=== PATIENT | male | born 1990 | race African-American/Black ===

== ENCOUNTER 2017-09-10 16:58 | Emergency (ER) | payer SELFPAY ==
[2017-09-10] MEDS ORDERED: NA CHLORIDE 0.9% 1,000 ML ONE ×2 (17:27→19:29)
[2017-09-10] MEDS ORDERED: ONDANSETRON 4 MG/2 ML VIAL ONE (17:27)
--- NOTE | 2017-09-10 17:45 | RAD REPORT ---
EXAM DESCRIPTION: CT - Head Brain Wo Cont - 09/10/2017 5:29 pm CLINICAL HISTORY: Blurred vision, transient alteration of awareness, drowsiness COMPARISON: CT March 2012 TECHNIQUE: Axial 5 mm thick images of the head were obtained without IV contrast. All CT scans are performed using dose optimization technique as appropriate and may include automated exposure control or mA/KV adjustment according to patient size. FINDINGS: No intracranial hemorrhage, mass, edema or shift of mid-line structures. No acute infarcti on changes seen. No abnormal extra-axial fluid collections. Ventricles are normal. Mastoid air cells and visualized portions of the paranasal sinuses are clear. No acute bony findings. Prominent adenoid tissue present similar to comparison. IMPRESSION: Negative CT head examination for acute or significant finding. No significant change fr om comparison.
[2017-09-10 18:00] LABS: Absolute Lymphocytes (CBC) 1.7 K/uL (0.7-4.9); Absolute Monocytes 0.6 K/uL (0.1-1.3); Absolute Neutrophil 5.9 K/uL (1.8-8.0); Basophils % 0.4 % (0-1.3); Eosinophils % 1.6 % (0-4.4); Hematocrit 43.7 % (39.6-49.0); Lymphocytes % 19.9 % (15.3-44.8); MCH 28.6 pg (27.0-35.0); MCV 82.6 fL (80-100); MPV 9.8 fL (7.6-11.3); Monocytes % 7.2 % (3.3-12.3)
[2017-09-10 19:12] LABS: ALT/SGPT 35 U/L (12-78); AST/SGOT 41 U/L (15-37); Albumin 4.2 g/dL (3.4-5.0); Alkaline Phosphatase 63 U/L (45-117); BUN Blood Urea Nitrogen 9 mg/dL (7-18); Bicarbonate 27 mmol/L (21-32); Bilirubin Direct 0.2 mg/dL (0-0.2); Bilirubin Total 0.7 mg/dL (0.2-1.0); Glucose Level 95 mg/dL (74-106); Potassium 3.8 mmol/L (3.5-5.1); Sodium Level 143 mmol/L (136-145)
[2017-09-10 19:14] LABS: Creatine Phosphokinase 1101 U/L (39-308)
[2017-09-10 20:06] LABS: Urine Blood NEGATIVE (NEG); Urine Glucose NEGATIVE (NEG); Urine Protein NEGATIVE (NEG); Urine pH 7.5 (5.0-7.0)
--- NOTE | 2017-09-10 21:44 | ER ---
Nurse's Notes [facility] Name: Jem Garnica Age: 27 yrs Sex: Male : 1990 Arrival Date: 09/10/2017 Time: 17:00 Bed 17 Private MD: Diagnosis: Dehydration;Rhabdomyolysis Presentation: 09/10 17:04 Presenting complaint: Patient states: I work outside, today I think i just got too hot. sg Keyanna been voimting, and nauseate with blurred vision. My vision has gotten a little better but I think i just got over heated. Usually i can see my veins when i flex, and right now i cant see them. Transition of care: patient was not received from another setting of care. Onset of symptoms was September 10, 2017. Risk Assessment: Do you want to hurt yourself or someone else? Patient reports no desire to harm self or others. Initial Sepsis Screen: Does the patient meet any 2 criteria? No. Patient's initial sepsis screen is negative. Does the patient have a suspected source of infection? No. Patient's initial sepsis screen is negative. Care prior to arrival: None. 17:04 Method Of Arrival: Ambulatory 17:04 Acuity: CHACORTA 3 sg Historical: - Allergies: 17:01 NKDA; sg - Home Meds: 17:01 None [Active]; sg - PMHx: 17:01 Asthma; sg - Immunization history:: Adult Immunizations unknown. - Social history:: Smoking status: Patient uses tobacco products. - Ebola Screening: : Patient negative for fever greater than or equal to 101.5 degrees Fahrenheit, and additional compatible Ebola Virus Disease symptoms Patient denies exposure to infectious person Patient denies travel to an Ebola-affected area in the 21 days before illness onset No symptoms or risks identified at this time. Screenin:45 Abuse screen: Denies threats or abuse. Denies injuries from another. Nutritional jl7 screening: No deficits noted. Tuberculosis screening: No symptoms or risk factors identified. Fall Risk IV access (20 points). Total Jacobs Fall Scale indicates No Risk (0-24 pts). Assessment: 17:45 General: Appears in no apparent distress. uncomfortable, Behavior is calm, cooperative. jl7 Pain: Complains of pain in right upper quadrant and left upper quadrant Pain does not radiate. Pain currently is 5 out of 10 on a pain scale. Quality of pain is described as "Sore from throwing up." Pain began 4 hours ago. Is continuous. Neuro: Level of Consciousness is awake, alert, obeys commands, Oriented to person, place, time, situation. Cardiovascular: Heart tones S1 S2 present Patient's skin is warm and dry. Respiratory: Airway is patent Respiratory effort is even, unlabored, Respiratory pattern is regular, symmetrical, Breath sounds are clear bilaterally. GI: Abdomen is round non-distended, Bowel sounds present X 4 quads. Reports nausea, vomiting, Patient currently denies diarrhea. : No signs and/or symptoms were reported regarding the genitourinary system. EENT: No signs and/or symptoms were reported regarding the EENT system. Derm: Skin is dry, Skin is normal, Skin temperature is warm. Musculoskeletal: No signs and/or symptoms reported regarding the musculoskeletal system. 18:45 Reassessment: Patient and/or family updated on plan of care and expected duration. Pain jl7 level reassessed. Patient is alert, oriented x 3, equal unlabored respirations, skin warm/dry/pink. Patient states symptoms have improved. 19:10 Reassessment: Patient is alert, oriented x 3, equal unlabored respirations, skin rv warm/dry/pink. received patient lying on bed comfortably with adult. awaiting urine sample for examination. no N/V reported as of this time. "I feel better now" as stated by the patient. 20:29 Reassessment: Patient and/or family updated on plan of care and expected duration. Pain rv level reassessed. Patient is alert, oriented x 3, equal unlabored respirations, skin warm/dry/pink. patient is comfortable with stable vital signs. ongoing infusion of NS 1L bolus. Vital Signs: 17:05 BP 116 / 64; Pulse 62; Resp 17; Pulse Ox 98% on R/A; Weight 113.4 kg; Height 5 ft. 11 sg in. (180.34 cm); Pain 0/10; 18:27 BP 112 / 70; Pulse 51; Resp 16; Pulse Ox 99% ; jl7 19:11 BP 97 / 49; Pulse 69; Resp 16; Pulse Ox 96% on R/A; rv 20:28 BP 98 / 57; Pulse 55; Resp 16; Pulse Ox 99% on R/A; rv 17:05 Body Mass Index 34.87 (113.40 kg, 180.34 cm) ED Course: 17:00 Patient arrived in ED. sg 17:00 Arm band placed on. sg 17:05 Triage completed. sg 17:13 Russell Barrett NP is PHCP. pm1 17:13 Lyndon May MD is Attending Physician. pm1 17:22 Sarah Ybarra RN is Primary Nurse. jl7 17:29 CT Head Brain wo Cont In Process Unspecified. EDMS 17:45 Patient has correct armband on for positive identification. Bed in low position. Call jl7 light in reach. Side rails up X 1. Pulse ox on. NIBP on. 17:50 Initial lab(s) drawn, by me, sent to lab. Inserted saline lock: 22 gauge in left hand, jl7 using aseptic technique. Blood collected. 18:26 Lab(s) recollected, by me, sent to lab. jl7 19:08 Report given to NIKITA Santana. jl7 20:44 No provider procedures requiring assistance completed. rv 21:51 IV discontinued, bleeding controlled, No redness/swelling at site. Pressure dressing rv applied. Administered Medications: 17:50 Drug: NS 0.9% 1000 ml Route: IV; Rate: 1000 ml; Site: left hand; jl7 19:39 Follow up: IV Status: Completed infusion rv 17:54 Drug: Zofran 4 mg Route: IVP; Site: left hand; jl7 18:30 Follow up: Response: No adverse reaction; Nausea is decreased jl7 19:39 Drug: NS 0.9% 1000 ml Route: IV; Rate: 1000 ml; Site: left hand; rv 20:36 Follow up: IV Status: Completed infusion rv Outcome: 21:43 Discharge ordered by MD. pm1 21:50 Discharged to home ambulatory. rv 21:50 Condition: improved 21:50 Discharge instructions given to patient, Instructed on discharge instructions, medication usage. 21:52 Patient left the ED. rv Signatures: Dispatcher [employer] EDMS Josef Badillo, RN RN Russell Barrett, KAJAL METALLURGICAL INSPECTOR pm1 Sarah Ybarra, RN RN jl7 Betito Ramírez RN RN rv Corrections: (The following items were deleted from the chart) 18:10 15:45 General: Appears in no apparent distress. uncomfortable, Behavior is calm, jl7 cooperative, 7 : 15:45 Pain: Complains of pain in right upper quadrant and left upper quadrant Pain does jl7 not radiate. Pain currently is 5 out of 10 on a pain scale. Quality of pain is described as "Sore from throwing up." Pain began 4 hours ago. Is continuous, 7 15:45 Neuro: Level of Consciousness is awake, alert, obeys commands, Oriented to jl7 person, place, time, situation, 7 : 15:45 Cardiovascular: Heart tones S1 S2 present Patient's skin is warm and dry. jl7 jl7 : 15:45 Respiratory: Airway is patent Respiratory effort is even, unlabored, Respiratory jl7 pattern is regular, symmetrical, Breath sounds are clear bilaterally. jl7 : 15:45 GI: Abdomen is round non-distended, Bowel sounds present X 4 quads. Reports jl7 nausea, vomiting, Patient currently denies diarrhea, 7 15:45 : No signs and/or symptoms were reported regarding the genitourinary system. [id number] : 15:45 EENT: No signs and/or symptoms were reported regarding the EENT system. jl7 jl7 : 15:45 Derm: Skin is dry, Skin is normal, Skin temperature is warm jl7 7 15:45 Musculoskeletal: No signs and/or symptoms reported regarding the musculoskeletal jl7 system. jl7
--- NOTE | 2017-09-10 21:44 | EDPHYS ---
Physician Documentation [facility] Name: Jem Garnica Age: 27 yrs Sex: Male : 1990 Arrival Date: 09/10/2017 Time: 17:00 Bed 17 Private MD: ED Physician Lyndon May HPI: 09/10 18:00 This 27 yrs old Black Male presents to ER via Ambulatory with complaints of pm1 Nausea/Vomiting. 18:00 The patient presents to the emergency department with nausea, vomiting. Onset: The pm1 symptoms/episode began/occurred today. Possible causes: Heat exposure. The symptoms are aggravated by nothing. The symptoms are alleviated by nothing. Associated signs and symptoms: Pertinent positives: nausea, vomiting, headache, Pertinent negatives: abdominal pain, diarrhea, fever. Severity of symptoms: in the emergency department the symptoms are worse. The patient has not experienced similar symptoms in the past. The patient has not recently seen a physician. Patient was working outside in the heat. Patient operates heavy machinery. Patient reports the onset of nausea and vomiting after getting outside of his machine. Historical: - Allergies: 17:01 NKDA; sg - Home Meds: 17:01 None [Active]; sg - PMHx: 17:01 Asthma; sg - Immunization history:: Adult Immunizations unknown. - Social history:: Smoking status: Patient uses tobacco products. - Ebola Screening: : Patient negative for fever greater than or equal to 101.5 degrees Fahrenheit, and additional compatible Ebola Virus Disease symptoms Patient denies exposure to infectious person Patient denies travel to an Ebola-affected area in the 21 days before illness onset No symptoms or risks identified at this time. ROS: 18:00 Constitutional: Negative for fever, chills, and weight loss, Eyes: Negative for injury, pm1 pain, redness, and discharge, ENT: Negative for injury, pain, and discharge, Neck: Negative for injury, pain, and swelling, Cardiovascular: Negative for chest pain, palpitations, and edema, Respiratory: Negative for shortness of breath, cough, wheezing, and pleuritic chest pain. 18:00 Back: Negative for injury and pain, : Negative for injury, bleeding, discharge, and swelling, MS/Extremity: Negative for injury and deformity, Skin: Negative for injury, rash, and discoloration. 18:00 Abdomen/GI: Positive for nausea and vomiting, Negative for abdominal pain, diarrhea. 18:00 Neuro: Positive for headache. Exam: 18:00 Constitutional: This is a well developed, well nourished patient who is awake, alert, pm1 and in no acute distress. Head/Face: Normocephalic, atraumatic. Eyes: Pupils equal round and reactive to light, extra-ocular motions intact. Lids and lashes normal. Conjunctiva and sclera are non-icteric and not injected. Cornea within normal limits. Periorbital areas with no swelling, redness, or edema. ENT: Nares patent. No nasal discharge, no septal abnormalities noted. Tympanic membranes are normal and external auditory canals are clear. Oropharynx with no redness, swelling, or masses, exudates, or evidence of obstruction, uvula midline. Mucous membranes moist. Neck: Trachea midline, no thyromegaly or masses palpated, and no cervical lymphadenopathy. Supple, full range of motion without nuchal rigidity, or vertebral point tenderness. No Meningismus. Chest/axilla: Normal chest wall appearance and motion. Nontender with no deformity. No lesions are appreciated. Cardiovascular: Regular rate and rhythm with a normal S1 and S2. No gallops, murmurs, or rubs. Normal PMI, no JVD. No pulse deficits. Respiratory: Lungs have equal breath sounds bilaterally, clear to auscultation and percussion. No rales, rhonchi or wheezes noted. No increased work of breathing, no retractions or nasal flaring. Abdomen/GI: Soft, non-tender, with normal bowel sounds. No distension or tympany. No guarding or rebound. No evidence of tenderness throughout. Back: No spinal tenderness. No costovertebral tenderness. Full range of motion. Skin: Warm, dry with normal turgor. Normal color with no rashes, no lesions, and no evidence of cellulitis. MS/ Extremity: Pulses equal, no cyanosis. Neurovascular intact. Full, normal range of motion. 18:00 Neuro: Orientation: is normal, Mentation: is normal, Cerebellar function: normal finger to nose testing, Motor: is normal, moves all fours, Sensation: is normal, no obvious gross deficits. Vital Signs: 17:05 BP 116 / 64; Pulse 62; Resp 17; Pulse Ox 98% on R/A; Weight 113.4 kg; Height 5 ft. 11 sg in. (180.34 cm); Pain 0/10; 18:27 BP 112 / 70; Pulse 51; Resp 16; Pulse Ox 99% ; jl7 19:11 BP 97 / 49; Pulse 69; Resp 16; Pulse Ox 96% on R/A; rv 20:28 BP 98 / 57; Pulse 55; Resp 16; Pulse Ox 99% on R/A; rv 17:05 Body Mass Index 34.87 (113.40 kg, 180.34 cm) MDM: 17:14 Patient medically screened. pm1 21:40 ED course: Patient feeling better after IV fluids and feels ready to go home to eat. pm1 Patient offered admission for additional IV fluids but refused. Feels better and wants to return to work. Advised some days off and avoidance from the heat. Patient offered additional IV fluids prior to leaving and he refused. 21:42 Data reviewed: vital signs. Data interpreted: Pulse oximetry: on room air is 99 %. pm1 Interpretation: normal. Counseling: I had a detailed discussion with the patient and/or guardian regarding: the historical points, exam findings, and any diagnostic results supporting the discharge/admit diagnosis, lab results, radiology results, the need for outpatient follow up, to return to the emergency department if symptoms worsen or persist or if there are any questions or concerns that arise at home. 09/10 17:21 Order name: Basic Metabolic Panel; Complete Time: 19:25 pm09/10 17:21 Order name: CBC with Diff; Complete Time: 18:05 pm09/10 17:21 Order name: Hepatic Function; Complete Time: 19:25 pm09/10 17:21 Order name: CPK; Complete Time: 19:25 pm09/10 20:02 Order name: Urine Dipstick--Ancillary (enter results) rg2 09/10 20:02 Order name: Urine Dipstick-Ancillary; Complete Time: 21:04 EDMS 09/10 17:21 Order name: CT Head Brain wo Cont; Complete Time: 18:05 pm09/10 17:21 Order name: IV Saline Lock; Complete Time: 17:56 pm09/10 17:21 Order name: Labs collected and sent; Complete Time: 17:56 pm1 09/10 17:21 Order name: Urine Dipstick-Ancillary (obtain specimen); Complete Time: 19:39 pm1 Administered Medications: 17:50 Drug: NS 0.9% 1000 ml Route: IV; Rate: 1000 ml; Site: left hand; jl7 19:39 Follow up: IV Status: Completed infusion rv 17:54 Drug: Zofran 4 mg Route: IVP; Site: left hand; jl7 18:30 Follow up: Response: No adverse reaction; Nausea is decreased jl7 19:39 Drug: NS 0.9% 1000 ml Route: IV; Rate: 1000 ml; Site: left hand; rv 20:36 Follow up: IV Status: Completed infusion rv Disposition: 09/11 07:10 Co-signature as Attending Physician, Lyndon May MD. rn Disposition: 09/10/17 21:43 Discharged to Home. Impression: Dehydration, Rhabdomyolysis. - Condition is Stable. - Discharge Instructions: Dehydration, Adult, Rhabdomyolysis, Rehydration, Adult. - Prescriptions for Zofran 4 mg Oral Tablet - take 1 tablet by ORAL route every 12 hours As needed; 20 tablet. - Work release form, Medication Reconciliation Form, Thank You Letter form. - Follow up: Emergency Department; When: As needed; Reason: Worsening of condition. Follow up: Private Physician; When: 2 - 3 days; Reason: Recheck today's complaints, Continuance of care, Re-evaluation by your physician. - Problem is new. - Symptoms have improved. Signatures: Dispatcher [employer] EDJosef Medina RN Lyndon Jarquin MD MD rn Marinas, Patrick, COMMUNICATIONS REPRESENTATIVE COMMUNICATIONS REPRESENTATIVE pm1 Sarah Ybarra RN RN jl7 Betito Ramírez RN RN rv Corrections: (The following items were deleted from the chart) 09/10 21:52 21:43 09/10/2017 21:43 Discharged to Home. Impression: Dehydration; Rhabdomyolysis. rv Condition is Stable. Forms are Medication Reconciliation Form, Thank You Letter, Antibiotic Education, Prescription Opioid Use. Follow up: Emergency Department; When: As needed; Reason: Worsening of condition. Follow up: Private Physician; When: 2 - 3 days; Reason: Recheck today's complaints, Continuance of care, Re-evaluation by your physician. Problem is new. Symptoms have improved. pm1
[2017-09-10 22:19] VITALS: BP 98/57; O2SAT 99
== END 2017-09-10 21:52 | disposition home or self-care (01) ==
LOC: ER 16:58
DX: E86.0 Dehydration (principal); M62.82 Rhabdomyolysis; Z72.0 Tobacco use
CPT/HCPCS: 36415; 70450; 80048; 80076; 81003; 82550; 85025; 96361; 96374; 99284; J2405; J7030

== ENCOUNTER 2018-02-04 12:11 | Emergency (ER) | payer SELFPAY ==
[2018-02-04 13:17] LABS: Absolute Lymphocytes (CBC) 1.6 K/uL (0.7-4.9); Absolute Monocytes 0.8 K/uL (0.1-1.3); Absolute Neutrophil 5.7 K/uL (1.8-8.0); Basophils % 0.3 % (0-1.3); Eosinophils % 3.6 % (0-4.4); Hematocrit 40.5 % (39.6-49.0); MCH 29.4 pg (27.0-35.0); MCV 86.1 fL (80-100); MPV 9.5 fL (7.6-11.3); Monocytes % 9.4 % (3.3-12.3); RBC Red Blood Cell Count 4.71 M/uL (4.33-5.43)
--- NOTE | 2018-02-04 13:23 | RAD REPORT ---
EXAM DESCRIPTION: CT - Head Brain Wo Cont - 02/04/2018 1:11 pm CLINICAL HISTORY: HEADACHE COMPARISON: Head Brain Wo Cont dated 09/10/2017; HEAD BRAIN W O CONTRAST dated 03/28/2012 TECHNIQUE: All CT scans are performed using dose optimization technique as appropriate and may inclu de automated exposure control or mA/KV adjustment according to patient size. FINDINGS: No intracranial hemorrhage, hydrocephalus or extra-axial fluid collection.No areas of brai n edema or evidence of midline shift. The paranasal sinuses and mastoids are clear. The calvarium is intact. IMPRESSION: No acute intracranial abnormality.
[2018-02-04 13:41] LABS: BUN Blood Urea Nitrogen 13 mg/dL (7-18); Bicarbonate 27 mmol/L (21-32); Glucose Level 124 mg/dL (74-106); Potassium 3.9 mmol/L (3.5-5.1); Sodium Level 144 mmol/L (136-145)
[2018-02-04] MEDS ORDERED: IBUPROFEN 400 MG TAB ONE (13:50)
--- NOTE | 2018-02-04 14:26 | EDPHYS ---
Physician Documentation [facility] Name: Jem Garnica Age: 27 yrs Sex: Male : 1990 Arrival Date: 02/04/2018 Time: 12:14 Bed 10 Private MD: ED Physician Lyndon May HPI: 02/04 12:47 This 27 yrs old Black Male presents to ER via Ambulatory with complaints of Headache, jmm Congestion, Diarrhea. 12:47 The patient complains of pain to the left frontal area, left side of the back of head, jmm left temporal area and left occipital area. The patient describes the headache as aching. Onset: The symptoms/episode began/occurred gradually, 2 day(s) ago. Associated signs and symptoms: Pertinent positives: cough, congestion. This is a 27 year old male with a history of asthma that presents to the ED with left sided headache and sinus congestion beginning 2 days ago. Patient also complains of cough and body aches. . Historical: - Allergies: 12:20 NKDA; aj - Home Meds: 12:20 None [Active]; aj - PMHx: 12:20 Asthma; aj - PSHx: 12:20 None; aj - Immunization history:: Adult Immunizations not up to date. - Social history:: Smoking status: Patient uses tobacco products, smokes one-half pack cigarettes per day. - Ebola Screening: : Patient negative for fever greater than or equal to 101.5 degrees Fahrenheit, and additional compatible Ebola Virus Disease symptoms Patient denies exposure to infectious person Patient denies travel to an Ebola-affected area in the 21 days before illness onset No symptoms or risks identified at this time. ROS: 12:47 Neck: Negative for injury, pain, and swelling, Cardiovascular: Negative for chest pain, jmm palpitations, and edema. 12:47 Constitutional: Positive for body aches. 12:47 ENT: Positive for sore throat. 12:47 Respiratory: Positive for cough. 12:47 Neuro: Positive for headache. 12:47 All other systems are negative. Exam: 12:47 Constitutional: This is a well developed, well nourished patient who is awake, alert, jmm and in no acute distress. 12:47 Chest/axilla: Normal chest wall appearance and motion. Cardiovascular: Regular rate and rhythm. No edema appreciated Respiratory: Normal respirations, no respiratory distress appreciated Abdomen/GI: Non distended, soft 12:47 Head/face: Sinus tenderness, that is moderate, is located over the right ethmoid sinus, left ethmoid sinus, right maxillary sinus and left maxillary sinus. 12:47 Cardiovascular: Rate: normal, Rhythm: regular. 12:47 Respiratory: Breath sounds: are clear throughout. 12:47 Neuro: Orientation: is normal, Mentation: is normal, Memory: is normal, Gait: is steady. 12:47 Psych: Behavior/mood is pleasant, cooperative. Vital Signs: 12:20 BP 114 / 55; Pulse 68; Resp 20; Temp 98.3; Pulse Ox 99% on R/A; Weight 102.06 kg; aj Height 5 ft. 11 in. (180.34 cm); 12:20 Body Mass Index 31.38 (102.06 kg, 180.34 cm) aj MDM: 12:47 Patient medically screened. [facility] 14:25 Data reviewed: vital signs, nurses notes. Counseling: I had a detailed discussion with [facility] the patient and/or guardian regarding: the historical points, exam findings, and any diagnostic results supporting the discharge/admit diagnosis, radiology results, the need for outpatient follow up, the need to transfer to another facility. 14:25 Data reviewed: lab test result(s). Data interpreted: Pulse oximetry: on room air is 99 jmm %. 14:25 Response to treatment: the patient's symptoms have markedly improved after treatment. [facility] 02/04 12:48 Order name: CBC with Diff; Complete Time: 13:24 [facility] 02/04 12:48 Order name: BMP; Complete Time: 13:42 [facility] 02/04 12:48 Order name: Flu; Complete Time: 13:42 [facility] 02/04 12:49 Order name: CT Head Brain wo Cont; Complete Time: 13:24 [facility] Administered Medications: 13:26 CANCELLED (Patient Refused): Reglan 10 mg IVP once; over 1 to 2 minutes [facility] 13:26 CANCELLED (Patient Refused): diphenhydrAMINE 12.5 mg IVP once [facility] 13:26 CANCELLED (Patient Refused): Ketorolac 30 mg IVP once [facility] 13:36 Not Given (Patient Refused): NS 0.9% 1000 ml IV at 1 bolus Per protocol; 1000 mL bolus iw 13:45 Drug: Ibuprofen 800 mg Route: PO; Disposition: 17:25 Co-signature as Attending Physician, Lyndon May MD. rn Disposition: 02/04/18 14:26 Discharged to Home. Impression: Acute ethmoidal sinusitis. - Condition is Stable. - Discharge Instructions: Sinusitis, Adult. - Prescriptions for Bromfed DM 2- 30-10 mg/5 mL Oral syrup - take 10 milliliter by ORAL route every 4 hours; 200 milliliter. Zithromax Z- Serafin 250 mg Oral Tablet - take 1 tablet by ORAL route as directed for 5 days Day 1 - take two (2) tablets one time. Day 2, 3, 4 , 5 take one (1) tablet once daily.; 6 tablet. - Medication Reconciliation Form, Thank You Letter, Antibiotic Education, Prescription Opioid Use form. - Follow up: Private Physician; When: 2 - 3 days; Reason: Recheck today's complaints, Continuance of care, Re-evaluation by your physician. Signatures: Dispatcher [employer] Crystal Viera RN Romeo Landrum PA PA jmm Williams, Irene, RN RN iw Nieto, Roman, MD MD attorney recruiter: (The following items were deleted from the chart) 13:26 12:49 Reglan 10 mg IVP once; over 1 to 2 minutes ordered. [facility] 13:26 12:49 diphenhydrAMINE 12.5 mg IVP once ordered. [facility] 13:26 12:49 Ketorolac 30 mg IVP once ordered. [facility] 13:36 12:48 IV Saline Lock ordered. [facility] 14:38 14:26 02/04/2018 14:26 Discharged to Home. Impression: Acute ethmoidal sinusitis. Condition is Stable. Forms are Medication Reconciliation Form, Thank You Letter, Antibiotic Education, Prescription Opioid Use. Follow up: Private Physician; When: 2 - 3 days; Reason: Recheck today's complaints, Continuance of care, Re-evaluation by your physician. [facility]aina
--- NOTE | 2018-02-04 14:26 | ER ---
Nurse's Notes [facility] Name: Jem Garnica Age: 27 yrs Sex: Male : 1990 Arrival Date: 02/04/2018 Time: 12:14 Bed 10 Private MD: Diagnosis: Acute ethmoidal sinusitis Presentation: 02/04 12:20 Presenting complaint: Patient states: Nasal congestion, headache, back aches for 2 days. Transition of care: patient was not received from another setting of care. Onset of symptoms was February 02, 2018. Risk Assessment: Do you want to hurt yourself or someone else? Patient reports no desire to harm self or others. Initial Sepsis Screen: Does the patient meet any 2 criteria? No. Patient's initial sepsis screen is negative. Initial Sepsis Screen: Does the patient have a suspected source of infection? No. Patient's initial sepsis screen is negative. Care prior to arrival: None. 12:20 Method Of Arrival: Ambulatory 12:20 Acuity: CHACORTA 4 Triage Assessment: 12:20 Headache History: The patient has had previous headaches and this one is similar to previous episodes. General: Appears in no apparent distress. comfortable, Behavior is calm, cooperative, appropriate for age. Pain: Complains of pain in face, scalp and back. EENT: Reports nasal congestion nasal discharge. Neuro: Level of Consciousness is awake, alert, obeys commands, Oriented to person, place, time, situation, Appropriate for age Reports headache. Respiratory: Airway is patent Respiratory effort is even, unlabored, Respiratory pattern is regular, symmetrical. Derm: Skin is intact, is healthy with good turgor, Skin is pink, warm \\T\\ dry. normal. Musculoskeletal: Reports pain in back. 12:30 Pain: Also complains of no other associated symptoms. iw 12:50 Pain: Pain currently is 5 out of 10 on a pain scale. iw 15:25 Pain: Pain began. iw Historical: - Allergies: 12:20 NKDA; aj - Home Meds: 12:20 None [Active]; aj - PMHx: 12:20 Asthma; aj - PSHx: 12:20 None; aj - Immunization history:: Adult Immunizations not up to date. - Social history:: Smoking status: Patient uses tobacco products, smokes one-half pack cigarettes per day. - Ebola Screening: : Patient negative for fever greater than or equal to 101.5 degrees Fahrenheit, and additional compatible Ebola Virus Disease symptoms Patient denies exposure to infectious person Patient denies travel to an Ebola-affected area in the 21 days before illness onset No symptoms or risks identified at this time. Screenin:13 Abuse screen: Denies threats or abuse. Denies injuries from another. Tuberculosis iw screening: No symptoms or risk factors identified. 13:15 Nutritional screening: No deficits noted. Fall Risk None identified. iw Assessment: 12:30 General: Appears in no apparent distress. Behavior is calm, cooperative. Pain: iw Complains of pain in top of head. Neuro: Level of Consciousness is awake, alert, obeys commands, Oriented to person, place, time, situation. Cardiovascular: Capillary refill < 3 seconds in bilateral fingers Patient's skin is warm and dry. Respiratory: Respiratory effort is even, unlabored, Respiratory pattern is regular, symmetrical. Derm: Skin is intact, is healthy with good turgor. Musculoskeletal: Range of motion: intact in all extremities. 13:11 Reassessment: IV infiltrated when flushed, pt states "y'all aren't gonna be sticking me iw no more, i don't want no shots or anything, y'all can give me pills for pain if you want". 14:01 Reassessment: Patient appears in no apparent distress at this time. Patient and/or iw family updated on plan of care and expected duration. Pain level reassessed. Patient is alert, oriented x 3, equal unlabored respirations, skin warm/dry/pink. Vital Signs: 12:20 BP 114 / 55; Pulse 68; Resp 20; Temp 98.3; Pulse Ox 99% on R/A; Weight 102.06 kg; aj Height 5 ft. 11 in. (180.34 cm); 12:20 Body Mass Index 31.38 (102.06 kg, 180.34 cm) ED Course: 12:14 Patient arrived in ED. mr 12:20 Triage completed. aj 12:20 Arm band placed on right wrist. Patient placed in waiting room, Patient notified of aj wait time. 12:37 Lorena Altamirano, RN is Primary Nurse. iw 12:40 Romeo Lopez PA is PHCP. [facility] 12:40 Lyndon May MD is Attending Physician. jmm 13:00 Patient has correct armband on for positive identification. iw 13:10 CT Head Brain wo Cont In Process Unspecified. EDMS 13:13 Initial lab(s) drawn, by me, sent to lab. Flu and/or RSV swab sent to lab. iw 14:37 No provider procedures requiring assistance completed. Patient did not have IV access iw during this emergency room visit. Administered Medications: 13:26 CANCELLED (Patient Refused): Reglan 10 mg IVP once; over 1 to 2 minutes jmm 13:26 CANCELLED (Patient Refused): diphenhydrAMINE 12.5 mg IVP once jmm 13:26 CANCELLED (Patient Refused): Ketorolac 30 mg IVP once jmm 13:36 Not Given (Patient Refused): NS 0.9% 1000 ml IV at 1 bolus Per protocol; 1000 mL bolus iw 13:45 Drug: Ibuprofen 800 mg Route: PO; iw Outcome: 14:26 Discharge ordered by MD. jmm 14:37 Discharged to home ambulatory, with family. iw 14:37 Condition: good 14:37 Discharge instructions given to patient, family, Instructed on discharge instructions, follow up and referral plans. medication usage, Demonstrated understanding of instructions, follow-up care, medications, Prescriptions given X 2. 14:38 Patient left the ED. iw Signatures: Dispatcher [employer] Crystal Viera, Romeo Landrum RN, PA PA jmm Rivera, Mary mr Williams, Irene, NIKITA SHELTON iw
[2018-02-04 14:57] VITALS: BP 114/55; TEMP 98.3; O2SAT 99
== END 2018-02-04 14:38 | disposition home or self-care (01) ==
LOC: ER 12:11
DX: J01.20 Acute ethmoidal sinusitis, unspecified (principal); F17.210 Nicotine dependence, cigarettes, uncomplicated
CPT/HCPCS: 36415; 70450; 80048; 85025; 87804; 99284

== ENCOUNTER 2019-01-10 22:45 | Emergency (ER) | payer SELFPAY ==
--- NOTE | 2019-01-10 23:56 | ER ---
Nurse's Notes [facility] Name: Jem Garnica Age: 28 yrs Sex: Male : 1990 Arrival Date: 01/10/2019 Time: 22:48 Bed 8 Private MD: None, None Diagnosis: Presentation: 01/10 22:58 Presenting complaint: Patient states: Chest pain and SOB X 30 mins while walking in [address] pt stated he had bad food earlier today. pt stated pain is gone now. pt stated he vomited X1 today. Transition of care: patient was not received from another setting of care. Onset of symptoms was January 10, 2019. Risk Assessment: Do you want to hurt yourself or someone else? Patient reports no desire to harm self or others. Initial Sepsis Screen: Does the patient meet any 2 criteria? No. Patient's initial sepsis screen is negative. Does the patient have a suspected source of infection? No. Patient's initial sepsis screen is negative. Care prior to arrival: None. 22:58 Method Of Arrival: Wheelchair [facility] 22:58 Acuity: CHACORTA 3 ak Triage Assessment: 23:01 General: Appears in no apparent distress. Behavior is cooperative, Smells of weed. ak1 Historical: - Allergies: 23:01 NKDA; ak1 - Home Meds: 23:01 None [Active]; ak1 - PMHx: 23:01 Asthma; ak1 - PSHx: 23:01 None; ak1 Vital Signs: 23:01 BP 116 / 70; Pulse 73; Resp 18; Temp 97.6; Pulse Ox 98% on R/A; Weight 113.4 kg (R); ak1 Height 5 ft. 11 in. (180.34 cm) (R); Pain 2/10; 23:01 Body Mass Index 34.87 (113.40 kg, 180.34 cm) ak1 ED Course: 22:48 Patient arrived in ED. es 22:49 None, None is Private Physician. es 23:01 Triage completed. ak1 23:01 Arm band placed on Patient placed in an exam room, Patient notified of wait time. ak1 23:02 EKG completed in triage. Results shown to MD. ak1 23:56 Patient's name was called from ER lobby. No response. Unable to locate patient. Will ak1 disposition as left without being seen by a provider. Administered Medications: No medications were administered Outcome: 23:56 Patient left the ED. ak1 Signatures: Estefany Brito Amber, RN RN ak1
[2019-01-11 00:40] VITALS: BP 116/70; TEMP 97.6; O2SAT 98
--- NOTE | 2019-01-11 12:11 | EKG ---
Test Date: 2019-01-10 Test Time: 23:02:05 Computational Scientist: DARRYN MEASUREMENT RESULTS: Intervals: Rate: 65 ND: 176 QRSD: 98 QT: 376 QTc: 391 Pruden: P: 63 ND: 176 QRS: 73 T: 47 INTERPRETIVE STATEMENTS: Normal sinus rhythm with sinus arrhythmia Normal ECG Compared to ECG 10/25/2014 17:42:31 No significant changes Electronically Signed On 01-11-19 12:09:04 CDT by Nas Balderas
== END 2019-01-10 23:56 | disposition left against medical advice (07) ==
LOC: ER 22:45
DX: Z53.21 Procedure and treatment not carried out due to patient leaving prior to being seen by health care provider (principal)
CPT/HCPCS: 93005; 99281

== ENCOUNTER 2020-05-17 10:58 | Emergency (ER) | payer OTHER ==
[2020-05-17] MEDS ORDERED: LIDOCAINE 1% MPF 5 ML VIAL ONE (12:08)
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
--- NOTE | 2020-05-17 12:22 | EDPHYS ---
Physician Documentation [facility] Name: Jem Garnica Age: 30 yrs Sex: Male : 1990 Arrival Date: 05/17/2020 Time: 11:04 Bed 12 Private MD: ED Physician Mark Tay HPI: 05/17 12:41 This 30 yrs old Black Male presents to ER via Ambulatory with complaints of Hand Injury kb - laceration. 12:41 The patient has not experienced similar symptoms in the past. The patient has not kb recently seen a physician. 12:42 The patient has a laceration occurred at home, and there are no complicating factors. kb The injury was accidental. The laceration(s) is(are) located on the Right first web space. Onset: The symptoms/episode began/occurred this morning. Associated signs and symptoms: The patient has no apparent associated signs or symptoms. Historical: - Allergies: 11:23 NKDA; tw2 - Home Meds: 11:23 None [Active]; tw2 - PMHx: 11:23 Asthma; tw2 - PSHx: 11:23 None; tw2 - Immunization history:: Adult Immunizations Adult Immunizations not up to date, Last tetanus immunization: unknown. - Social history:: Smoking status: . ROS: 12:38 Constitutional: Negative for fever, chills, and weight loss. kb 12:38 Neuro: Negative for headache, weakness, numbness, tingling, and seizure. 12:38 MS/extremity: Positive for laceration, of the Right first web space. 12:38 Skin: Positive for laceration(s), of the Right first web space. Exam: 12:36 Constitutional: This is a well developed, well nourished patient who is awake, alert, kb and in no acute distress. Head/Face: Normocephalic, atraumatic. MS/ Extremity: Pulses equal, no cyanosis. Neurovascular intact. Full, normal range of motion. 12:36 Respiratory: the patient does not display signs of respiratory distress, Respirations: normal. 12:36 Skin: injury, laceration(s), the wound is approximately 2 cm(s), of the Right first web space, that can be described as clean, no foreign body, linear, without bleeding. 12:36 Neuro: Orientation: is normal, to person, place, time \T\ situation. Mentation: is normal, able to follow commands, Motor: is normal, Sensation: is normal, Gait: is steady. Vital Signs: 11:21 BP 128 / 87; Pulse 87; Resp 17; Temp 98.0(TE); Pulse Ox 100% on R/A; Weight 90.72 kg tw2 (R); Laceration: 12:19 Wound Repair of 2cm ( 0.8in ) subcutaneous laceration to Right first web space. Linear kb shaped.. Distal neuro/vascular/tendon intact. Anesthesia: Wound infiltrated with 2 mls of 1% lidocaine. Wound prep: Extensive cleansing with betadine by me, Wound irrigation with saline by me. Skin closed with 3 5-0 Prolene using simple sutures and sterile technique. Patient tolerated well. MDM: 11:24 Patient medically screened. kb 12:20 Data reviewed: vital signs, nurses notes. Data interpreted: Pulse oximetry: on room air kb is 100 %. Interpretation: normal. Counseling: I had a detailed discussion with the patient and/or guardian regarding: the historical points, exam findings, and any diagnostic results supporting the discharge/admit diagnosis, the need for outpatient follow up, a family practitioner, to return to the emergency department if symptoms worsen or persist or if there are any questions or concerns that arise at home. 05/17 11:44 Order name: Prolene, Sutures; Complete Time: 12:16 kb 05/17 11:44 Order name: Dressing - Wound; Complete Time: 12:37 kb 05/17 11:44 Order name: Gloves, Sterile; Complete Time: 12:16 kb 05/17 11:44 Order name: Setup Suture Tray; Complete Time: 12:16 kb Administered Medications: 12:10 Drug: Lidocaine (1 %) 1 vials {Note: administered by RETAIL MANAGEMENT KEYHOLDER.} Volume: 5 ml; Route: aa5 Infiltration; Disposition: 15:29 Co-signature as Attending Physician, Mark Tay MD I agree with the assessment and kdr plan of care. Disposition: 05/17/20 12:21 Discharged to Home. Impression: Laceration without foreign body of right hand. - Condition is Stable. - Discharge Instructions: Laceration Care, Adult, [id number]. - Medication Reconciliation Form, Thank You Letter, Antibiotic Education, Prescription Opioid Use form. - Follow up: Emergency Department; When: As needed; Reason: Worsening of condition. Follow up: Private Physician; When: 2 - 3 days; Reason: Recheck today's complaints, Continuance of care, Re-evaluation by your physician. Signatures: Ingrid Garnica, SHASHANK-C SLAB INSTALLER-Mark Harvey MD MD kdr Deidra Ruiz RN RN aa5 Miranda Navarro RN RN tw2 Corrections: (The following items were deleted from the chart) 12:45 12:21 05/17/2020 12:21 Discharged to Home. Impression: Laceration without foreign body aa5 of right hand. Condition is Stable. Forms are Medication Reconciliation Form, Thank You Letter, Antibiotic Education, Prescription Opioid Use. Follow up: Emergency Department; When: As needed; Reason: Worsening of condition. Follow up: Private Physician; When: 2 - 3 days; Reason: Recheck today's complaints, Continuance of care, Re-evaluation by your physician. kb
[2020-05-17 13:04] VITALS: BP 128/87; TEMP 98; O2SAT 100
== END 2020-05-17 12:45 | disposition home or self-care (01) ==
LOC: ER 10:58
PROC: 0JQJ0ZZ Repair Right Hand Subcutaneous Tissue and Fascia, Open Approach (ICD-10-PCS; principal; 2020-05-17)
DX: S61.411A Laceration without foreign body of right hand, initial encounter (principal); W26.0XXA Contact with knife, initial encounter; Y93.89 Activity, other specified; Y92.009 Unspecified place in unspecified non-institutional (private) residence as the place of occurrence of the external cause
CPT/HCPCS: 99283

== ENCOUNTER 2020-07-20 09:05 | Emergency (ER) | payer OTHER ==
--- NOTE | 2020-07-20 10:24 | ER ---
Nurse's Notes [facility] Name: Jem Garnica Jr Age: 30 yrs Sex: Male : 1990 Arrival Date: 07/20/2020 Time: 09:07 Bed 14 Private MD: Diagnosis: Encounter for screening, unspecified Presentation: 07/20 09:17 Chief complaint: Back pain x years, works manual labor job and stated "I think I need a hb full body scan because I hurt so bad some days my muscles cramp up in my back and my shoulder hurts and sometimes my ankles.". Coronavirus screen: At this time, the client does not indicate any symptoms associated with coronavirus-19. Ebola Screen: No symptoms or risks identified at this time. Initial Sepsis Screen: Does the patient meet any 2 criteria? No. Patient's initial sepsis screen is negative. Does the patient have a suspected source of infection? No. Patient's initial sepsis screen is negative. Risk Assessment: Do you want to hurt yourself or someone else? Patient reports no desire to harm self or others. Onset of symptoms is unknown. 09:17 Method Of Arrival: Ambulatory 09:17 Acuity: CHACORTA 4 hb Historical: - Allergies: 09:20 NKDA; hb - Home Meds: 09:20 None [Active]; hb - PMHx: 09:20 Asthma; hb - PSHx: 09:20 None; hb - Immunization history:: Adult Immunizations up to date. - Social history:: Smoking status: Patient reports the use of cigarette tobacco products, smokes one-half pack cigarettes per day. Screenin:12 Abuse screen: Denies threats or abuse. Denies injuries from another. Nutritional ca1 screening: No deficits noted. Tuberculosis screening: No symptoms or risk factors identified. Fall Risk None identified. Assessment: 10:12 General: Appears in no apparent distress. comfortable, Behavior is calm, cooperative, ca1 appropriate for age. Pain: Complains of pain in right subscapular area Pain currently is 7 out of 10 on a pain scale. Is intermittent, Aggravated by repositioning. Neuro: Level of Consciousness is awake, alert, obeys commands, Oriented to person, place, time, situation. Derm: Skin is intact, is healthy with good turgor, Skin is pink, warm \\T\\ dry. Musculoskeletal: Circulation, motion, and sensation intact. Capillary refill < 3 seconds. 10:14 Reassessment: Security with pt. ca1 Vital Signs: 09:17 BP 137 / 78; Pulse 81; Resp 16; Temp 97.8; Pulse Ox 100% on R/A; Weight 104.33 kg; hb Height 5 ft. 11 in. (180.34 cm); Pain 7/10; 09:17 Body Mass Index 32.08 (104.33 kg, 180.34 cm) hb ED Course: 09:07 Patient arrived in ED. am2 09:19 Triage completed. hb 09:20 Arm band placed on. hb 09:58 Nicole Gallardo RN is Primary Nurse. ca1 09:59 Ingrid Garnica FNP-C is PHCP. kb 09:59 Andrez Reagan MD is Attending Physician. kb 10:12 Patient has correct armband on for positive identification. Bed in low position. Call ca1 light in reach. Side rails up X 1. Pulse ox on. NIBP on. 10:12 No provider procedures requiring assistance completed. Patient did not have IV access ca1 during this emergency room visit. Administered Medications: No medications were administered Outcome: 10:15 Medical screen evaluation completed per provider. Patient declined treatment. ca1 10:17 Condition: stable ca1 10:17 Following a medical screening exam, the patient was provided information regarding alternative care sites and resources available per registration personnel. 10:23 Discharge ordered by . kb 10:25 Patient left the ED. ca1 Signatures: Ingrid Garnica FNP-C FNP-Ckb Baxter, Heather, RN RN Crystal Hernandez am Nicole Gallardo RN RN ca1
--- NOTE | 2020-07-20 10:24 | EDPHYS ---
Physician Documentation [facility] Name: Jem Garnica Jr Age: 30 yrs Sex: Male : 1990 Arrival Date: 07/20/2020 Time: 09:07 Bed 14 Private MD: LINDA Physician Andrez Reagan HPI: 07/20 19:56 This 30 yrs old Black Male presents to ER via Ambulatory with complaints of Back Injury.kb 19:56 The patient presents with pain that is chronic, with no known mechanism of injury. The kb symptoms are located in the low back, right subscapular area. Onset: The symptoms/episode began/occurred years ago. 19:56 The pain does not radiate. Associated signs and symptoms: The patient has no apparent kb associated signs or symptoms. The problem was sustained from a chronic condition. Modifying factors: The patient symptoms are alleviated by nothing, the patient symptoms are aggravated by any movement. Severity of symptoms: At their worst the symptoms were moderate, in the emergency department the symptoms are unchanged. The patient has experienced similar episodes in the past, chronically. The patient has not recently seen a physician. Pt reports chronic "full body pain" that started years ago. The pain is worse in the back and the medication he normally takes for pain didn't work today so he knew he wasn't going to be able to do much at work. States he called his dr and she told him to come here for a "full body cat scan and x-rays" to find the source of the body pain. Pt denies injury or trauma. Denies any new pain. Historical: - Allergies: 09:20 NKDA; hb - Home Meds: 09:20 None [Active]; hb - PMHx: 09:20 Asthma; hb - PSHx: 09:20 None; hb - Immunization history:: Adult Immunizations up to date. - Social history:: Smoking status: Patient reports the use of cigarette tobacco products, smokes one-half pack cigarettes per day. ROS: 19:55 Constitutional: Negative for fever, chills, and weight loss, Neck: Negative for injury, kb pain, and swelling, Cardiovascular: Negative for chest pain, palpitations, and edema, Respiratory: Negative for shortness of breath, cough, wheezing, and pleuritic chest pain, Abdomen/GI: Negative for abdominal pain, nausea, vomiting, diarrhea, and constipation, Skin: Negative for injury, rash, and discoloration, Neuro: Negative for headache, weakness, numbness, tingling, and seizure. 19:55 Back: Positive for pain at rest, pain with movement, of the right scapular area, right subscapular area and low back area. Exam: 19:55 Constitutional: This is a well developed, well nourished patient who is awake, alert, kb and in no acute distress. Head/Face: Normocephalic, atraumatic. Neck: Trachea midline, no thyromegaly or masses palpated, and no cervical lymphadenopathy. Supple, full range of motion without nuchal rigidity, or vertebral point tenderness. No Meningismus. Cardiovascular: Regular rate and rhythm with a normal S1 and S2. No gallops, murmurs, or rubs. No pulse deficits. Respiratory: Respirations even and unlabored. No increased work of breathing, no retractions or nasal flaring. Abdomen/GI: Soft, non-tender. No distention Skin: Warm, dry with normal turgor. Normal color. MS/ Extremity: Pulses equal, no cyanosis. Neurovascular intact. Full, normal range of motion. Neuro: Awake and alert, GCS 15, oriented to person, place, time, and situation. Moves all extremities. Normal gait. 19:58 Neuro: Exam negative for acute changes. kb Vital Signs: 09:17 BP 137 / 78; Pulse 81; Resp 16; Temp 97.8; Pulse Ox 100% on R/A; Weight 104.33 kg; hb Height 5 ft. 11 in. (180.34 cm); Pain 7/10; 09:17 Body Mass Index 32.08 (104.33 kg, 180.34 cm) hb MDM: 10:00 Patient medically screened. [facility] 10:22 Data reviewed: vital signs, nurses notes. Data interpreted: Pulse oximetry: on room air kb is 100 %. Interpretation: normal. Counseling: I had a detailed discussion with the patient and/or guardian regarding: the historical points, exam findings, and any diagnostic results supporting the discharge/admit diagnosis, the need for outpatient follow up, a family practitioner, to return to the emergency department if symptoms worsen or persist or if there are any questions or concerns that arise at home. Administered Medications: No medications were administered Disposition: 10:22 Chronic back pain. kb [id number] 07:53 Co-signature as Attending Physician, Andrez Reagan MD I agree with the assessment and yamileth plan of care. Disposition: 07/20/20 10:23 Discharged to Home. Impression: Encounter for screening, unspecified. - Condition is Stable. - Medication Reconciliation Form, Thank You Letter, Antibiotic Education, Prescription Opioid Use form. - Follow up: Emergency Department; When: As needed; Reason: Worsening of condition. Follow up: Private Physician; When: 2 - 3 days; Reason: Recheck today's complaints, Continuance of care, Re-evaluation by your physician. Signatures: Ingrid Garnica, MANAGER PROPERTY-C SHASHANK-Andrez Edwards MD MD cha Baxter, Heather, RN RN Nicole Gallardo RN RN ca1 Corrections: (The following items were deleted from the chart) 07/20 10:25 10:23 07/20/2020 10:23 Discharged to Home. Impression: Encounter for screening, ca1 unspecified. Condition is Stable. Forms are Medication Reconciliation Form, Thank You Letter, Antibiotic Education, Prescription Opioid Use. Follow up: Emergency Department; When: As needed; Reason: Worsening of condition. Follow up: Private Physician; When: 2 - 3 days; Reason: Recheck today's complaints, Continuance of care, Re-evaluation by your physician. kb
[2020-07-20 10:30] VITALS: BP 137/78; TEMP 97.8; O2SAT 100
== END 2020-07-20 10:25 | disposition home or self-care (01) ==
LOC: ER 09:05
DX: M54.5 Low back pain (principal); G89.29 Other chronic pain; F17.210 Nicotine dependence, cigarettes, uncomplicated; J45.909 Unspecified asthma, uncomplicated
CPT/HCPCS: 99282

== ENCOUNTER 2020-09-08 20:16 | Emergency (ER) | payer OTHER ==
--- NOTE | 2020-09-08 21:15 | ER ---
Nurse's Notes [facility] Name: Jem Garnica Jr Age: 30 yrs Sex: Male : 1990 Arrival Date: 09/08/2020 Time: 20:17 Bed 24 Private MD: Diagnosis: Laceration of the Foot Presentation: 09/08 20:41 Chief complaint: Patient states: I am walking on a fishing hole then i caught by a rr5 barnacles, lacerated wound right foot( big toe area). Coronavirus screen: Client denies travel out of the [place] in the last 14 days. At this time, the client does not indicate any symptoms associated with coronavirus-19. Ebola Screen: Patient negative for fever greater than or equal to 101.5 degrees Fahrenheit, and additional compatible Ebola Virus Disease symptoms Patient denies exposure to infectious person. Patient denies travel to an Ebola-affected area in the 21 days before illness onset. Complicating Factors: Glass or an other foreign body is present in the wound. Initial Sepsis Screen: Does the patient meet any 2 criteria? No. Patient's initial sepsis screen is negative. Does the patient have a suspected source of infection? No. Patient's initial sepsis screen is negative. Risk Assessment: Do you want to hurt yourself or someone else? Patient reports no desire to harm self or others. Onset of symptoms was September 08, 2020. 20:41 Method Of Arrival: Wheelchair rr5 20:41 Acuity: CHACORTA 3 rr5 Triage Assessment: 20:45 Derm: Wound noted medial aspect of right toes Wound is lacerated wound. rr5 Historical: - Allergies: 20:44 NKDA; rr5 - Home Meds: 20:44 None [Active]; rr5 - PMHx: 20:44 Asthma; rr5 - PSHx: 20:44 right wrist surgery; rr5 - Immunization history:: Adult Immunizations unknown, Last tetanus immunization: < 5 years ago. - Social history:: Smoking status: Patient reports the use of cigarette tobacco products, smokes one-half pack cigarettes per day, Patient/guardian denies using alcohol, street drugs. Screenin:02 Abuse screen: Denies threats or abuse. Nutritional screening: No deficits noted. em Tuberculosis screening: No symptoms or risk factors identified. Fall Risk None identified. Assessment: 20:55 General: Appears in no apparent distress. comfortable, Behavior is calm, cooperative, em appropriate for age. Pain: Complains of pain in medial aspect of right toes Pain currently is 9 out of 10 on a pain scale. Neuro: Level of Consciousness is awake, alert, obeys commands, Oriented to person, place, time, situation. Cardiovascular: Capillary refill < 3 seconds Patient's skin is warm and dry. Respiratory: Airway is patent Respiratory effort is even, unlabored, Respiratory pattern is regular, symmetrical. GI: Abdomen is flat. Derm: Skin is intact, is healthy with good turgor, Skin is pink, warm \T\ dry. Wound noted medial aspect of right toes. Musculoskeletal: Capillary refill < 3 seconds, Range of motion: intact in all extremities. Injury Description: Laceration sustained to medial aspect of right toes is 2.6 to 7.5 cm long, not bleeding, was sustained less than 30 minutes ago. is bleeding a small amount. Vital Signs: 20:41 BP 116 / 75; Pulse 61; Resp 16; Temp 97.7; Pulse Ox 96% ; Weight 104.33 kg; Height 5 rr5 ft. 11 in. (180.34 cm); Pain 9/10; 20:41 Body Mass Index 32.08 (104.33 kg, 180.34 cm) rr5 ED Course: 20:17 Patient arrived in ED. cf2 20:43 Triage completed. rr5 20:45 Arm band placed on right wrist. rr5 20:47 Romeo Lopez PA is PHCP. [facility] 20:47 Rod Collins MD is Attending Physician. m 21:02 Taz Hahn, RN is Primary Nurse. em 21:02 Patient has correct armband on for positive identification. Adult w/ patient. em 21:10 Wound care: to laceration located on medial aspect of right toes was cleaned with em Hibiclens, dressed with Neosporin, 4X4s, Kerlix, Patient tolerated well. 21:15 Max Powell DPM is Referral Physician. [facility] 21:20 No provider procedures requiring assistance completed. Patient did not have IV access em during this emergency room visit. Administered Medications: No medications were administered Outcome: 21:14 Discharge ordered by . [facility] 21:22 Discharged to home ambulatory, with family. em 21:22 Condition: good 21:22 Discharge instructions given to patient, family, Instructed on discharge instructions, follow up and referral plans. medication usage, wound care, Demonstrated understanding of instructions, follow-up care, medications, wound care, Prescriptions given X 1. 21:24 Patient left the ED. em Signatures: Romeo Lopez PA PA jmm Munoz, Edgar, RN RN em Da Conte RN RN rr5 [facility]
--- NOTE | 2020-09-08 21:15 | EDPHYS ---
Physician Documentation [facility] Name: Jem Garnica Jr Age: 30 yrs Sex: Male : 1990 Arrival Date: 09/08/2020 Time: 20:17 Bed 24 Private MD: ED Physician Rod Collins HPI: 09/08 21:08 This 30 yrs old Black Male presents to ER via Wheelchair with complaints of Laceration jmm To Foot. 21:08 Onset: The symptoms/episode began/occurred acutely, just prior to arrival. Associated jmm signs and symptoms: Pertinent negatives: deformity, dizziness, heavy bleeding, loss of consciousness, numbness distal to injury, suspected foreign body. It is unknown whether or not the patient has had similar symptoms in the past. Patient states [place] Denies other injury. Patient states he is UTD on his immunizations. . Historical: - Allergies: 20:44 NKDA; rr5 - Home Meds: 20:44 None [Active]; rr5 - PMHx: 20:44 Asthma; rr5 - PSHx: 20:44 right wrist surgery; rr5 - Immunization history:: Adult Immunizations unknown, Last tetanus immunization: < 5 years ago. - Social history:: Smoking status: Patient reports the use of cigarette tobacco products, smokes one-half pack cigarettes per day, Patient/guardian denies using alcohol, street drugs. ROS: 21:08 Constitutional: Negative for fever, chills, and weight loss, Cardiovascular: Negative jmm for chest pain, palpitations, and edema, Respiratory: Negative for shortness of breath, cough, wheezing, and pleuritic chest pain. 21:08 MS/extremity: Positive for laceration. 21:08 All other systems are negative. Exam: 21:08 Constitutional: This is a well developed, well nourished patient who is awake, alert, jmm and in no acute distress. Head/Face: atraumatic. Eyes: EOMI, no conjunctival erythema appreciated ENT: Moist Mucus Membranes Neck: Trachea midline, Supple Chest/axilla: Normal chest wall appearance and motion. Cardiovascular: Regular rate and rhythm. No edema appreciated Respiratory: Normal respirations, no respiratory distress appreciated Abdomen/GI: Non distended, soft Back: Normal ROM 21:08 Skin: 2 cm laceration noted to the foot, no active bleeding appreciated. 21:08 Neuro: Orientation: is normal, Mentation: is normal, Memory: is normal. 21:08 Psych: Behavior/mood is pleasant, cooperative. Vital Signs: 20:41 BP 116 / 75; Pulse 61; Resp 16; Temp 97.7; Pulse Ox 96% ; Weight 104.33 kg; Height 5 rr5 ft. 11 in. (180.34 cm); Pain 9/10; 20:41 Body Mass Index 32.08 (104.33 kg, 180.34 cm) rr5 MDM: 20:58 Patient medically screened. [facility] 21:11 Data reviewed: vital signs, nurses notes. Counseling: I had a detailed discussion with zaina the patient and/or guardian regarding: the historical points, exam findings, and any diagnostic results supporting the discharge/admit diagnosis, the need for outpatient follow up, to return to the emergency department if symptoms worsen or persist or if there are any questions or concerns that arise at home. ED course: Patient is alert and non toxic in appearance in the ED. laceration not repaired due to infeciton risk. Wound cleaned. Patient given strict return precautions. Patient understood and agrees with the plan of care. . 09/08 20:59 Order name: Wound Care; Complete Time: 21:11 [facility] Administered Medications: No medications were administered Disposition: 09/09 05:11 Co-signature as Attending Physician, Rod Collins MD. [email or web address] Disposition: 09/08/20 21:14 Discharged to Home. Impression: Laceration of the Foot. - Condition is Stable. - Discharge Instructions: Nonsutured Laceration Care. - Prescriptions for Doxycycline Hyclate 100 mg Oral Tablet - take 1 tablet by ORAL route every 12 hours; 20 tablet. - Work release form, Medication Reconciliation Form, Thank You Letter, Antibiotic Education, Prescription Opioid Use form. - Follow up: Private Physician; When: 2 - 3 days; Reason: Recheck today's complaints, Continuance of care, Re-evaluation by your physician. Follow up: Max Powell DPM; When: 2 - 3 days; Reason: Recheck today's complaints, Continuance of care, Re-evaluation by your physician. Signatures: Romeo Lopez PA PA Taz Guevara RN RN Da Yanez RN RN rr5 Rod Collins MD MD 7 Corrections: (The following items were deleted from the chart) 09/08 21:15 21:14 09/08/2020 21:14 Discharged to Home. Impression: Laceration of the Foot. [facility] Condition is Stable. Forms are Medication Reconciliation Form, Thank You Letter, Antibiotic Education, Prescription Opioid Use. Follow up: Private Physician; When: 2 - 3 days; Reason: Recheck today's complaints, Continuance of care, Re-evaluation by your physician. [facility] 21:24 21:15 09/08/2020 21:14 Discharged to Home. Impression: Laceration of the Foot. em Condition is Stable. Discharge Instructions: Nonsutured Laceration Care. Prescriptions for Doxycycline Hyclate 100 mg Oral Tablet - take 1 tablet by ORAL route every 12 hours; 20 tablet. and Forms are Medication Reconciliation Form, Thank You Letter, Antibiotic Education, Prescription Opioid Use. Follow up: Private Physician; When: 2 - 3 days; Reason: Recheck today's complaints, Continuance of care, Re-evaluation by your physician. Follow up: Dr. Max Powell; When: 2 - 3 days; Reason: Recheck today's complaints, Continuance of care, Re-evaluation by your physician. [facility]
[2020-09-08 21:29] VITALS: BP 116/75; TEMP 97.7; O2SAT 96
== END 2020-09-08 21:24 | disposition home or self-care (01) ==
LOC: ER 20:16
DX: S91.311A Laceration without foreign body, right foot, initial encounter (principal); W26.8XXA Contact with other sharp object(s), not elsewhere classified, initial encounter; Y92.832 Beach as the place of occurrence of the external cause; F17.210 Nicotine dependence, cigarettes, uncomplicated
CPT/HCPCS: 99283

== ENCOUNTER 2022-09-04 16:26 | Emergency (ER) | payer OTHER ==
--- OUTSIDE RECORDS SUMMARY | 2022-09-04 16:29 | XMS REPORT | Continuity of Care Document ---
:1990 Author Organization [facility] t Address [address] [place] [address] Care Team Providers Name Role Phone Blanks SHASHANK-Radha LEE Primary Care Physician [phone] HONG REDDING Attending Clinician Unavailable Hong Redding MD Attending Clinician Doctor Unassigned, [place] Attending Clinician Unavailable AMISHA TORRES Attending Clinician Unavailable Amisha Molina Attending Clinician CHRISTIANO COLMENARES Attending Clinician Unavailable Princess Velazquez MD Attending Clinician PRINCESS VELAZQUEZ Attending Clinician Unavailable Christiano Lopez Attending Clinician AFUA ABDUL Attending Clinician Unavailable Afua Abdul MD Attending Clinician MEGAN FALK Attending Clinician Unavailable Megan Falk DO Attending Clinician Isabel Pimentel RN Attending Clinician Unavailable UNKNOWN, ATTENDING Attending Clinician Unavailable Espinoza Fry MD Attending Clinician Lab, Adc Fam Pob I Attending Clinician Unavailable Grace Grace Attending Clinician GRACE POLLARD Attending Clinician Unavailable AMISHA TORRES Admitting Clinician Unavailable AFUA ABDUL Admitting Clinician Unavailable Payers Payer Name Policy Type Policy Number Effective Date Expiration Date Parminder WOODSON II [id number] 2020 00:00:00 Problems Condition Condition Condition Status Onset Resolution Last Treating Co mments Source Name Details Category Date Date Treatment Clinician Date 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 2-11 [place] Hemiplegic Hemiplegic Disease Active U nivers migraine migraine 2-11 ity of without without 00:00: [place] status status 00 Medical migrainosu migrainosu Br anch s, not s, not intractabl intractabl e e Allergies, Adverse Reactions, Alerts Allergy Allergy Status Severity Reaction(s) Onset Inactive Treating Comm ents Source Name Type Date Date Clinician NO KNOWN Drug Active Univers ALLERGIE Class ity of S [facility] Social History Social Habit Start Date Stop Date Quantity Comments Source History SDVT University o f Alcohol Frequency [facility] History SDVT University o f Alcohol Std Drinks [facility] History [facility] o f Alcohol [facility] History of tobacco Cigarette Smoker University of use [facility] Exposure to 2022-07-07 2022-07-17 Not sure University of SARS-CoV-2 (event) 00:00:00 07:43:00 [facility] Cigarettes smoked 2022-07-17 2022-07-17 Univers ity of current (pack per 00:00:00 00:00:00 [facility] ) - Reported Branch Tobacco use and 2022-07-17 2022-07-17 Smokeless Universit y of exposure 00:00:00 00:00:00 tobacco non-user [facility] Comment 2022-07-17 2022-07-17 2 packs a week Unive rsity of 00:00:00 00:00:00 [facility] Alcohol Comment 2021-05-03 2021-05-03 6 beers a week Unive rsity of 00:00:00 00:00:00 [facility] Sex Ass[birth year] At [birth year] Universit y of 00:00:00 00:00:00 [facility] Smoking Status Start Date Stop Date Source Smokes tobacco daily 2022-07-17 00:00:00 Univers ity of [place] Medical Branch Medications Ordered Filled Start Stop Current Ordering Indication Dosage Frequency Signature Comments Components Source Medication Medication Date Date Medication? Clinician (SIG) Name Name ketorolac 2022- No 30mg 30 mg, Unive rs (TORADOL) 3-20 03-20 Slow IV ity of injection 19:00: 18:07 [place], [place] 30 mg 00 :00 ONCE, 1 Medical dose, On Branch 06/09/22 at 1400, WILI naproxen Yes [id number] 500mg Take 1 Un kayla (NAPROSYN) 3-20 tablet by ity of 500 mg 00:00: mouth in [place] tablet 00 the Medical morning Branch and 1 tablet in the evening. Take with meals. naproxen Yes [id number] 500mg Take 1 Un kayla (NAPROSYN) 3-20 tablet by ity of 500 mg 00:00: mouth in [place] tablet 00 the Medical morning Branch and 1 tablet in the evening. Take with meals. naproxen Yes [id number] 500mg Take 1 Un kayla (NAPROSYN) 3-20 tablet by ity of 500 mg 00:00: mouth in [place] tablet 00 the Medical morning Branch and 1 tablet in the evening. Take with meals. naproxen 0 Yes [id number] 500mg Take 1 Un kayla (NAPROSYN) 3-20 tablet by ity of 500 mg 00:00: mouth in [place] tablet 00 the Medical morning Branch and 1 tablet in the evening. Take with meals. dexamethaso 2021- No 8mg 8 mg, Univ ers ne 11-23 09-03 Intramuscu ity of (DECADRON 03:15: 02:29 lar, ONCE, [place] PHOSPHATE) 00 :00 1 dose, On Med ical injection 8 Thu11/22/21 Br anch mg at 2215, WILI methylPREDN Yes [id number] Take by Univers ISolone 4 11-22 mouth ity of mg tablets 00:00: [place]-INSTRU [place] 00 CTIONS. Medical follow Branch package directions hydrOXYzine Yes [id number] 25mg Take 1 Univers 25 mg 11-22 capsule by ity of capsule 00:00: mouth 3 (three) Medical times Branch daily as needed for Itching. methylPREDN 2022-0 Yes [id number] Take by Univers ISolone 4 9-02 mouth ity of mg tablets 00:00: [place]STRU [place] CTIONS. Medical follow Branch package directions hydrOXYzine 2-0 Yes [id number] 25mg Take 1 Univers 25 mg 9-02 capsule by ity of capsule 00:00: mouth 3 (three) Medical times Branch daily as needed for Itching. methylPREDN 2022-0 Yes [id number] Take by Univers ISolone 4 9-02 mouth ity of mg tablets 00:00: [place]STRU [place] 00 CTIONS. Medical follow Branch package directions hydrOXYzine 2-0 Yes [id number] 25mg Take 1 Univers 25 mg 9-02 capsule by ity of capsule 00:00: mouth 3 (three) Medical times Branch daily as needed for Itching. methylPREDN 2-0 Yes [id number] Take by Univers ISolone 4 9-02 mouth ity of mg tablets 00:00: [place]STRU [place] 00 CTIONS. Medical follow Branch package directions hydrOXYzine 2-0 Yes [id number] 25mg Take 1 Univers 25 mg 9-02 capsule by ity of capsule 00:00: mouth 3 (three) Medical times Branch daily as needed for Itching. methylPREDN 2022-0 Yes [id number] Take by Univers ISolone 4 9-02 mouth ity of mg tablets 00:00: [place] 00 CTIONS. Medical follow Branch package directions hydrOXYzine 2-0 Yes [id number] 25mg Take 1 Univers 25 mg 9-02 capsule by ity of capsule 00:00: mouth 3 (three) Medical times Branch daily as needed for Itching. ubrogepant 2022-0 Yes [id number] 100mg Take 100 Univers (UBRELVY) 4-14 mg by ity of 100 mg Tab 00:00: mouth as [place] 00 needed for Medical Pain Branch (scale 4-6) or Pain (scale 7-10). verapamiL 2022-0 Yes [id number] 120mg Take 1 U nivers 120 mg 24 4-14 capsule by ity of hr capsule 00:00: mouth at [place] 00 bedtime. Medical Branch ubrogepant 0 Yes [id number] 100mg Take 100 Univers (UBRELVY) 4-14 mg by ity of 100 mg Tab 00:00: mouth as [place] 00 needed for Medical Pain Branch (scale 4-6) or Pain (scale 7-10). verapamiL 2021-0 Yes [id number] 120mg Take 1 U nivers 120 mg 24 4-14 capsule by ity of hr capsule 00:00: mouth at [place] 00 bedtime. Medical Branch ubrogepant 0 Yes [id number] 100mg Take 100 Univers (UBRELVY) 4-14 mg by ity of 100 mg Tab 00:00: mouth as [place] 00 needed for Medical Pain Branch (scale 4-6) or Pain (scale 7-10). verapamiL 0 Yes [id number] 120mg Take 1 U nivers 120 mg 24 4-14 capsule by ity of hr capsule 00:00: mouth at [place] 00 bedtime. Medical Branch ubrogepant 0 Yes [id number] 100mg Take 100 Univers (UBRELVY) 4-14 mg by ity of 100 mg Tab 00:00: mouth as [place] 00 needed for Medical Pain Branch (scale 4-6) or Pain (scale 7-10). verapamiL 0 Yes [id number] 120mg Take 1 U nivers 120 mg 24 4-14 capsule by ity of hr capsule 00:00: mouth at [place] 00 bedtime. Medical Branch ubrogepant 0 Yes [id number] 100mg Take 100 Univers (UBRELVY) 4-14 mg by ity of 100 mg Tab 00:00: mouth as [place] 00 needed for Medical Pain Branch (scale 4-6) or Pain (scale 7-10). verapamiL 2021-0 Yes [id number] 120mg Take 1 U nivers 120 mg 24 4-14 capsule by ity of hr capsule 00:00: mouth at [place] 00 bedtime. Medical Branch ubrogepant 0 Yes [id number] 100mg Take 100 Univers (UBRELVY) 4-14 mg by ity of 100 mg Tab 00:00: mouth as [place] 00 needed for Medical Pain Branch (scale 4-6) or Pain (scale 7-10). ubrogepant Yes [id number] 100mg Take 100 Univers (UBRELVY) 4-14 mg by ity of 100 mg Tab 00:00: mouth as [place] 00 needed for Medical Pain Branch (scale 4-6) or Pain (scale 7-10). verapamiL 2022- No [id number] 120mg Take 1 Univers 120 mg 24 4-14 04-27 capsule by ity of hr capsule 00:00: 00:00 [place] :00 bedtime. Medical Branch verapamiL 2022- No [id number] 120mg Take 1 Univers 120 mg 24 4-14 04-27 capsule by ity of hr capsule 00:00: 00:00 [place] :00 bedtime. Medical Branch multivit,ca 0 Yes Take by Uni vers lc,min/FA/K 2-11 mouth. ity of 11:58: (ONE-A-DAY 42 Medical MEN'S Branch COMPLETE ORAL) multivit,ca 2021-0 Yes Take by Uni vers lc,min/FA/K 2-11 mouth. ity of 11:58: [place] (ONE-A-DAY 42 Medical MEN'S Branch COMPLETE ORAL) multivit,ca 2021-0 Yes Take by Uni vers lc,min/FA/K 2-11 mouth. ity of 11:58: [place] (ONE-A-DAY 42 Medical MEN'S Branch COMPLETE ORAL) multivit,ca 2021-0 Yes Take by Uni vers lc,min/FA/K 2-11 mouth. ity of 11:58: [place] (ONE-A-DAY 42 Medical MEN'S Branch COMPLETE ORAL) multivit,ca 2021-0 Yes Take by Uni vers lc,min/FA/K 2-11 mouth. ity of 11:58: [place] (ONE-A-DAY 42 Medical MEN'S Branch COMPLETE ORAL) multivit,ca 2021-0 Yes Take by Uni vers lc,min/FA/K 2-11 mouth. ity of 11:58: [place] (ONE-A-DAY 42 Medical MEN'S Branch COMPLETE ORAL) multivit,ca 2021-0 Yes Take by Uni vers lc,min/FA/K 2-11 mouth. ity of 1/lycop 11:58: [place] (ONE-A-DAY 42 Medical MEN'S Branch COMPLETE ORAL) proMETHazin 2021-0 Yes [id number] 12.5mg Take 1 Univers e 12.5 mg 2-11 tablet by ity o f tablet 00:00: mouth [place] 00 every 4 Medical (four) Branch hours as needed for N/V unresponsi ve to Ondansetro n or N/V alternatin g with Ondansetro n. cyclobenzap 2021-0 Yes [id number] 10mg Take 1 Univers rine 10 mg 2-11 tablet by ity of tablet 00:00: mouth 3 [place] 00 (three) Medical times Branch daily. cetirizine 2021-0 Yes [id number] 10mg Take 1 Univers 10 mg 2-11 tablet by ity of tablet 00:00: mouth [place] 00 daily. Medical Branch proMETHazin 2021-0 Yes [id number] 12.5mg Take 1 Univers e 12.5 mg 2-11 tablet by ity o f tablet 00:00: mouth [place] 00 every 4 Medical (four) Branch hours as needed for N/V unresponsi ve to Ondansetro n or N/V alternatin g with Ondansetro n. cyclobenzap 2021-0 Yes [id number] 10mg Take 1 Univers rine 10 mg 2-11 tablet by ity of tablet 00:00: mouth 3 [place] 00 (three) Medical times Branch daily. cetirizine 2021-0 Yes [id number] 10mg Take 1 Univers 10 mg 2-11 tablet by ity of tablet 00:00: mouth [place] 00 daily. Medical Branch proMETHazin 2021-0 Yes [id number] 12.5mg Take 1 Univers e 12.5 mg 2-11 tablet by ity o f tablet 00:00: mouth [place] 00 every 4 Medical (four) Branch hours as needed for N/V unresponsi ve to Ondansetro n or N/V alternatin g with Ondansetro n. cyclobenzap 2021-0 Yes [id number] 10mg Take 1 Univers rine 10 mg 2-11 tablet by ity of tablet 00:00: mouth 3 [place] 00 (three) Medical times Branch daily. cetirizine 2021-0 Yes [id number] 10mg Take 1 Univers 10 mg 2-11 tablet by ity of tablet 00:00: mouth [place] 00 daily. Medical Branch proMETHazin 2021-0 Yes [id number] 12.5mg Take 1 Univers e 12.5 mg 2-11 tablet by ity o f tablet 00:00: mouth [place] 00 every 4 Medical (four) Branch hours as needed for N/V unresponsi ve to Ondansetro n or N/V alternatin g with Ondansetro n. cyclobenzap 2021-0 Yes [id number] 10mg Take 1 Univers rine 10 mg 2-11 tablet by ity of tablet 00:00: mouth 3 [place] 00 (three) Medical times Branch daily. cetirizine 2021-0 Yes [id number] 10mg Take 1 Univers 10 mg 2-11 tablet by ity of tablet 00:00: mouth [place] 00 daily. Medical Branch proMETHazin 2021-0 Yes [id number] 12.5mg Take 1 Univers e 12.5 mg 2-11 tablet by ity o f tablet 00:00: mouth [place] 00 every 4 Medical (four) Branch hours as needed for N/V unresponsi ve to Ondansetro n or N/V alternatin g with Ondansetro n. cyclobenzap 2021-0 Yes [id number] 10mg Take 1 Univers rine 10 mg 2-11 tablet by ity of tablet 00:00: mouth 3 [place] 00 (three) Medical times Branch daily. cetirizine 2021-0 Yes [id number] 10mg Take 1 Univers 10 mg 2-11 tablet by ity of tablet 00:00: mouth [place] 00 daily. Medical Branch proMETHazin 2021-0 Yes [id number] 12.5mg Take 1 Univers e 12.5 mg 2-11 tablet by ity o f tablet 00:00: mouth [place] 00 every 4 Medical (four) Branch hours as needed for N/V unresponsi ve to Ondansetro n or N/V alternatin g with Ondansetro n. cyclobenzap 2021-0 Yes [id number] 10mg Take 1 Univers rine 10 mg 2-11 tablet by ity of tablet 00:00: mouth 3 [place] 00 (three) Medical times Branch daily. cetirizine 2021-0 Yes [id number] 10mg Take 1 Univers 10 mg 2-11 tablet by ity of tablet 00:00: mouth 00 daily. Medical Branch proMETHazin Yes [id number] 12.5mg Take 1 Univers e 12.5 mg 2-11 tablet by ity o f tablet 00:00: mouth [place] 00 every 4 Medical (four) Branch hours as needed for N/V unresponsi ve to Ondansetro n or N/V alternatin g with Ondansetro n. cyclobenzap Yes [id number] 10mg Take 1 Univers rine 10 mg 2-11 tablet by ity of tablet 00:00: mouth 3 [place] 00 (three) Medical times Branch daily. cetirizine Yes [id number] 10mg Take 1 Univers 10 mg 2-11 tablet by ity of tablet 00:00: mouth 00 daily. Medical Branch Vital Signs Vital Name Observation Time Observation Value Comments Source Systolic blood 2022-07-17 13:06:00 120 mm[Hg] Univer [facility]ity [facility] [place] [facility] Diastolic blood 2022-07-17 13:06:00 76 [facility]Hg[facility] 2022-07-17 13:06:00 78 /min [facility] Body temperature 2022-07-17 13:06:00 36.39 [facility] Body height 2022-07-17 13:06:00 180.3 cm [facility] Body weight 2022-07-17 13:06:00 117.028 kg [facility] BMI 2022-07-17 13:06:00 35.98 kg/m2 [facility] Oxygen saturation in 2022-07-17 13:06:00 99 /min [facility] Arterial blood by [facility] Pulse oximetry Branch Systolic blood 2022-06-09 19:00:00 112 mm[Hg] Univer sity [facility] [place] [facility] Diastolic blood 2022-06-09 19:00:00 72 mm[Hg] Unive rsity [facility] [place] [facility] Heart rate 2022-06-09 19:00:00 61 /min [facility] Respiratory rate 2022-06-09 19:00:00 15 /min [facility] acute hospital Oxygen saturation in 2022-06-09 19:00:00 97 /min University of Arterial blood by [facility] Pulse oximetry Branch Body temperature 2022-06-09 16:00:00 36 [facility] Body weight 2022-06-09 16:00:00 110.678 kg [facility] BMI 2022-06-09 16:00:00 35.01 kg/m2 [facility] Systolic blood 2021-11-23 02:00:00 114 mm[Hg] [facility] Diastolic blood 2021-11-23 02:00:00 68 mm[Hg] [facility] Heart rate 2021-11-23 02:00:00 67 /min [facility] Respiratory rate 2021-11-23 02:00:00 16 /min [facility] acute hospital Oxygen saturation in 2021-11-23 02:00:00 97 /min University of Arterial blood by [facility] Pulse oximetry Branch Body temperature 2021-11-23 01:46:00 36.06 [facility] Body height 2021-11-23 01:46:00 177.8 cm [facility] Body weight 2021-11-23 01:46:00 110.768 kg [facility] BMI 2021-11-23 01:46:00 35.04 kg/m2 [facility] Procedures Procedure Date / Time Performing Clinician Source Performed ASSIGNMENT OF BENEFITS 2022-07-17 12:45:16 Doctor Unassigned, [facility] [place] [facility] XR CHEST 1 VW 2022-06-09 16:54:00 [facility] TROPONIN I 2022-06-09 16:37:00 [facility] COMP. METABOLIC PANEL 2022-06-09 16:37:00 [facility] ([id number]) [facility] CBC WITH DIFF 2022-06-09 16:37:00 [facility] CONSENT/REFUSAL FOR 2022-06-09 16:01:44 Doctor Unassigned, [facility] DIAGNOSIS AND TREATMENT [place] [facility] [place] CONSENT/REFUSAL FOR 2022-06-09 15:57:30 Yair Loomis [facility] DIAGNOSIS AND TREATMENT [place] [facility] NOTICE OF PRIVACY 2021-11-23 01:27:11 Doctor Mikayla [facility] PRACTICES [place] [facility] CONSENT/REFUSAL FOR 2021-11-23 01:25:40 Yair Loomis [facility] DIAGNOSIS AND TREATMENT [place] [facility] MEDICATION CORRESPONDENCE 2021-07-12 05:01:00 Doctor Mikayla [facility] Name Medical [place] Encounters Start End Encounter Admission Attending Care Care Encounter Source Date/Time Date/Time Type Type Clinicians Facility Department ID 2022-07-17 2022-07-17 Outpatient R MILADIS [facility] [id number] Univers 08:00:00 08:26:17 [facility] it o f [facility] 2022-07-17 2022-07-17 Office Miladis [facility] [id number] Univers 08:00:00 08:26:17 Visit [facility] [id number] i ty [place] [phone] [facility] 059 Branch OFFICE BUILDING 2022-07-17 2022-07-17 Orders Doctor SALMERON [id number] Univers 00:00:00 00:00:00 Only Unassigned, SHAWN [id number] ity of [place] [facility] 4.2.7.2.686 [place] as [id number] [facility] 009 Branch 2022-06-09 2022-06-09 Emergency [facility] [id number] Univers 11:02:00 14:25:00 [facility] 2022-06-09 2022-06-09 [facility] [id number] Univers 11:02:00 14:25:00 Amisha S CARMEN 350.1.13.10 i ty of [place] 4.2.7.2.[place] [id number] [facility] 084 Branch 2022-01-23 2022-01-23 Outpatient R DEDRA [facility] [id number] Univers 09:00:00 09:00:00 CHRISTIANO [facility] 2021-11-22 2021-11-22 Emergency [facility] [id number] Univers 20:49:00 22:38:00 Princess MORALES 350.1.13.10 i ty of [place] 4.2.7.2.[place] [id number] [address] 2021-11-22 2021-11-22 Emergency X NEMAHA [facility] ERT [id number] Univers 20:49:00 22:38:00 PRINCESS rousseau [facility] 2021-07-12 2021-07-12 Orders Doctor FAVIOLA [id number] Univers 00:00:00 00:00:00 Only Unassigned, [place] 350.1.13.10 ity of [place] [facility] 4.2.7.2.686 [place] [id number] [address] 2021-07-04 2021-07-04 Office [facility] [id number] Univers 13:00:00 13:00:00 Visit Lycia HEALTH 350.1.13.10 it y of [place] [id number] [address] OFFICE BUILDING 2021-07-04 2021-07-04 Outpatient Shane COLMENARES [facility] [id number] Univers 13:00:00 12:59:08 KETURAHESPINOZA [facility]lin [facility] 2021-07-04 2021-07-04 Telephone [facility] [id number] Univers 00:00:00 00:00:00 Lycia HEALTH 350.1.13.10 it y [place] [id number] [address] OFFICE BUILDING 2021-07-04 2021-07-04 Telephone [facility] [id number] Univers 00:00:00 00:00:00 Lycia HEALTH [id number] it y [place] [id number] [address] OFFICE BUILDING 2021-07-04 2021-07-04 Telephone [facility] [id number] Univers 00:00:00 00:00:00 [facility] [id number] it y [place] [id number] [address] OFFICE BUILDING 2021-05-03 2021-05-03 [facility] [id number] Univers 11:00:00 11:48:33 CHRISTIANO ity [facility] 2021-05-03 2021-05-03 Office [facility] [id number] Univers 11:00:00 11:48:[address] [facility] 350.1.13.10 it y [place]2.[place].2.[place] [facility] [id number] [address] OFFICE [facility] 2021-04-14 2021-04-15 Emergency [facility] ERT [id number] Univers 18:26:00 00:02:00 AFUA rousseau [facility] 2021-04-14 2021-04-15 Emergency [facility] [id number] Univers 18:26:00 00:02:00 Afua MORALES 350.1.13.10 ity of [place] 4.[address] [place] [id number] 2021-03-24 2021-03-24 Emergency [facility] ERT [id number] Univers 19:36:00 20:05:00 MEGAN rousseau [facility] 2021-03-24 2021-03-24 [facility] [id number] Univers 19:36:00 20:05:00 Megan MORALES 350.1.13.10 [facility] 4.2.7.2.686 [facility] [id number] [address] 2020-11-11 2020-11-11 Tono Pimentel, FAVIOLA [id number] Univers 00:00:00 00:00:00 (Out) Isabel ESCOBAR 350.1.13.10 it y of HOSPITAL 4.2.7.2.686 [place] as [id number] [address] 2020-11-10 2020-11-10 Outpatient R [facility] [id number] Univers 11:00:00 11:00:00 ATTENDING ity of [facility] 2020-11-06 2020-11-06 Tono Fry [facility] [id number] Univers 00:00:00 00:00:00 (Out) [facility] 350.1.13.10 i ty of [place] 4.2.7.2.686 Cedric as Professio [id number] [address] Office [facility] One 2020-10-31 2020-10-31 Laboratory Lab, Adc Fam Pob I [facility] 1.2. [id number] Univers 17:22:56 19:08:45 Only Grace Pollard [facility] 350.1.13.10 ity of [place] 4.2.7.2.686 [place] as Professio [id number] [address] One 2020-10-31 2020-10-31 Outpatient R LATRICE [facility] [id number] Univers 17:00:00 17:00:00 GRACE rousseau o f [facility] 2020-10-31 2020-10-31 Letter Doctor SALMERON 1.2.840.114 [id number] Univers 00:00:00 00:00:00 (Out) Unassigned, SHAWN 350.1.13.10 ity of [place] [facility] 4.2.7.2.686 [place] as [phone] [address] 2020-10-31 2020-10-31 Letter Doctor SALMERON [id number] Univers 00:00:00 00:00:00 (Out) Unassigned, SHAWN 350.1.13.10 ity of [place] [facility] 4.2.7.2.686 [place]ed[place] as [id number] [address] 2020-10-31 2020-10-31 Letter Doctor FAVIOLA 1.2.840.114 [id number] Univers 00:00:00 00:00:00 (Out) Unassigned, [place] 350.1.13.10 ity of [place] [facility] 4.2.7.2.686 [place] as [phone] [address] 2020-10-31 2020-10-31 Letter Doctor FAVIOLA 1.2.840.114 [id number] Univers 00:00:00 00:00:00 (Out) Unassigned, SHAWN 350.1.13.10 ity of [place] [facility] 4.2.7.2.686 [place] as [phone] [address] Results Test Description Test Time Test Comments Results Result Comments Source TROPONIN I 2022-06-09 17:25:59 Test Item Value Reference Range Interpretation Comme nts TROPONIN I (test code = 6079006318) 0.002 ng/mL <=0.034 ZAKIA (test code = ZAKIA) Reference (Normal) Range (defined by the 99th percentile reference limit): <= 0.034 ng/mL Note: Cardiac troponin begins to rise 3-4 hours after the onset of ischemia. Repeat in 4-6 hours if the sample was drawn within 3-4 hours of the onset of the symptom and found normal. Diagnosis of myocardial injury is made with acute changes in cTn concentrations with at least one serial sample above the 99th percentile upper reference limit (URL), taken together with the patient's clinical presentation. Biotin has been reported to cause a negative bias, interpret results relative to patient's use of biotin. Lab Interpretation (test code = Normal 47122-5) [facility] ([id number])2022-06-09 17:16:40 Test Item Value Reference Range Interpretation Comments NA (test code = 139 mmol/L 135-145 2491234351) K (test code = 4.4 mmol/L 3.5-5.0 1940623908) CL (test code = 105 mmol/L 98-108 6577126363) CO2 TOTAL (test code 23 mmol/L 23-31 = 7574556445) AGAP (test code = 11 2-16 1907009137) BUN (test code = 13 mg/dL 7-23 6380570324) GLUCOSE (test code = 95 mg/dL 70-110 8203029639) CREATININE (test code 0.84 mg/dL 0.60-1.25 = 4790314271) TOTAL BILI (test code 0.7 mg/dL 0.1-1.1 = 5414541717) CALCIUM (test code = 9.1 mg/dL 8.6-10.6 8222908146) T PROTEIN (test code 7.3 g/dL 6.3-8.2 = 9330403552) ALBUMIN (test code = 4.5 g/dL 3.5-5.0 3351514541) ALK PHOS (test code = 62 U/L 34-122 5217833455) ALTv (test code = 20 U/L 5-50 2-6) AST(SGOT) (test code 20 U/L 13-40 = 1045668726) eGFR (test code = 107.3 mL/min/1.73m2 0582847839) ZAKIA (test code = ZAKIA) Association of Glomerular Filtration Rate (GFR) and Staging of Kidney Disease* + + +- +| GFR (mL/min/1.73 m2) ?| With Kidney Damage ?| ?Without Kidney Damage+ ------+ ----+ ------+| ?>90 ?| ?Stage one ?| ? Normal ?+ -+ + -+| ?60-89 ?| ?Stage two ?| ? Decreased GFR ? + + +- +| ?30-59 ?| ?Stage three ?| ? Stage three ? + + +- +| ?15-29 ?| ?Stage four ? | ? Stage four ?+ -+ + -+| ?<15 (or dialysis) ? ?| ?Stage five ? | ? Stage five ?+ -+ + -+ *Each stage assumes the associated GFR level has been in effect for at least three months. ?Stages 1 to 5, with or without kidney disease, indicate chronic kidney disease. Notes: Determination of stages one and two (with eGFR >59mL/min/1.73 m2) requires estimation of kidney damage for at least three months as defined by structural or functional abnormalities of the kidney, manifested by either:Pathological abnormalities or Markers of kidney damage (including abnormalities in the composition of the blood or urine or abnormalities in imaging tests). [facility] WITH [id number] 17:03:58 Test Item Value Reference Range Interpretation Comments WBC (test code = 9.68 See_Comment [Automated 6690-2) message] The sy stem which generated this result transmitted reference range : 4.20 - 10.70 10*3/?L. The reference range was not used to interpret this result as normal/abnormal . RBC (test code = 4.77 See_Comment [Automated 789-8) message] The sy stem which generated this result transmitted reference range : 4.26 - 5.52 10*6/?L. The reference range was not used to interpret this result as normal/abnormal . HGB (test code = 14.3 g/dL 12.2-16.4 718-7) HCT (test code = 39.0 % 38.4-49.3 4544-3) MCV (test code = 81.8 fL 81.7-95.6 787-2) MCH (test code = 30.0 pg 26.1-32.7 785-6) MCHC (test code = 36.7 g/dL 31.2-35.0 H 786-4) RDW-SD (test code = 35.5 fL 38.5-51.6 L 67479-1) RDW-CV (test code = 11.9 % 12.1-15.4 L 788-0) PLT (test code = 194 See_Comment [Automated 777-3) message] The sy stem which generated this result transmitted reference range : 150 - 328 10*3/ ?L. The reference r chip was not used to interpret this result as normal/abnormal . MPV (test code = 10.9 fL 9.8-13.0 93174-7) NRBC/100 WBC (test 0.0 See_Comment [Automat ed code = 1583480437) message] The system which generated this result transmitted reference range : 0.0 - 10.0 /100 WBCs. The refer ence range was not u sed to interpret th is result as normal/abnormal . NRBC x10^3 (test code See_Comment [Auto mated = 9956264292) message] The s ystem which generated this result transmitted reference range : 10*3/?L. The reference range was not used to interpret this result as normal/abnormal . GRAN MAT (NEUT) % 69.6 % (test code = 770-8) IMM GRAN % (test code 0.30 % = 2662657329) LYMPH % (test code = 20.4 % 736-9) MONO % (test code = 6.9 % 5905-5) EOS % (test code = 2.4 % 713-8) BASO % (test code = 0.4 % 706-2) GRAN MAT x10^3(ANC) 6.74 10*3/uL 1.99-6.95 (test code = 0256607762) IMM GRAN x10^3 (test 0.03 10*3/uL 0.00-0.06 code = 3639976803) LYMPH x10^3 (test code 1.97 10*3/uL 1.09-3.23 = 731-0) MONO x10^3 (test code 0.67 10*3/uL 0.36-1.02 = 742-7) EOS x10^3 (test code = 0.23 10*3/uL 0.06-0.53 711-2) BASO x10^3 (test code 0.04 10*3/uL 0.01-0.09 = 704-7) Lab Interpretation Abnormal (test code = 32246-2) [facility]"
[2022-09-04] MEDS ORDERED: TETANUS & DIPHTHERIA TOX,ADULT 0.5 ML VIAL ONE (17:12)
--- NOTE | 2022-09-04 17:12 | ER ---
Nurse's Notes [facility] Name: Jem Garnica Jr Age: 32 yrs Sex: Male : 1990 Arrival Date: 09/04/2022 Time: 16:26 Bed 11 Private MD: Diagnosis: Pain in right wrist;Puncture wound without foreign body of right wrist Presentation: 09/04 16:35 Chief complaint: Patient states: Pt states that he was pulling a palm tree out and it cm10 came down hit him in the right arm and "I think that I have a thorn in my arm. I looked on [employer] and it says that all palm tree thorns are toxic so I am here because it is swollen.". Coronavirus screen: Vaccine status: Patient reports being unvaccinated. Client denies travel out of the [place] in the last 14 days. At this time, the client does not indicate any symptoms associated with coronavirus-19. Ebola Screen: No symptoms or risks identified at this time. Initial Sepsis Screen: Does the patient meet any 2 criteria? No. Patient's initial sepsis screen is negative. Does the patient have a suspected source of infection? No. Patient's initial sepsis screen is negative. Risk Assessment: Do you want to hurt yourself or someone else? Patient reports no desire to harm self or others. Onset of symptoms was September 04, 2022. 16:35 Method Of Arrival: Ambulatory 10 16:35 Acuity: CHACORTA 4 cm10 Triage Assessment: 16:38 General: Appears in no apparent distress. Behavior is calm, cooperative. cm10 Historical: - Allergies: 16:37 NKDA; cm10 - PMHx: 16:37 Asthma; cm10 - Immunization history:: Adult Immunizations unknown. - Social history:: Smoking status: Patient reports the use of cigarette tobacco products, denies chronic smoking, but will smoke occasionally. Assessment: 16:56 Pain: Complains of pain in right wrist Pain radiates to right elbow Pain. Neuro: No os deficits noted. Cardiovascular: No deficits noted. Respiratory: No deficits noted. Musculoskeletal: No deficits noted. Reports Patient states, "my wrist hurt so bad, that it feels like my hand will fall off". no open wound noted on the patient. 17:32 Neuro: Level of Consciousness is awake, alert, obeys commands, Oriented to person, aa5 place, time, situation. Respiratory: Airway is patent Respiratory effort is even, unlabored, Respiratory pattern is regular, symmetrical. Derm: Skin is dry, Skin is normal, Skin temperature is warm. Vital Signs: 16:35 BP 123 / 77; Pulse 72; Resp 18; Temp 98.3(TE); Pulse Ox 99% ; Weight 113.4 kg (R); cm10 Height 5 ft. 11 in. ; Pain 10/10; 16:35 Body Mass Index 34.87 (113.40 kg, 180.34 cm) cm10 16:35 Pain Scale: Adult cm10 ED Course: 16:28 Patient arrived in ED. mr 16:37 Triage completed. cm10 16:38 Evangelist Poole MD is Attending Physician. bs3 16:38 Arm band placed on Patient placed in an exam room, on a stretcher. cm10 16:55 Willa Javed, NIKITA is Primary Nurse. os 17:19 Wrist Right 3 View XRAY In Process Unspecified. EDMS 17:32 No provider procedures requiring assistance completed. Patient did not have IV access aa5 during this emergency room visit. Administered Medications: 17:09 Drug: Ketorolac IM 30 mg Route: IM; Site: right deltoid; iw 17:30 Follow up: Response: No adverse reaction aa5 17:10 Drug: Tetanus-Diphtheria Toxoid IM Adult 0.5 ml {[employer]: [employer]. Exp: 08/31/2023. Lot #: [id number]. } Route: IM; Site: left deltoid; 17:30 Follow up: Response: No adverse reaction aa5 Medication: 17:32 VIS not applicable for this client. aa5 Outcome: 17:11 Discharge ordered by . bs3 17:32 Discharged to home ambulatory. aa5 17:32 Condition: stable 17:32 Discharge instructions given to patient, Instructed on discharge instructions, follow up and referral plans. medication usage, Demonstrated understanding of instructions, follow-up care, medications, Prescriptions given X 2. 17:33 Patient left the ED. aa5 Signatures: Dispatcher [facility] Kenia Ortega Lorena Altamirano RN RN Deidra Ruiz RN RN aa5 Evangelist Poole MD MD bs3 Willa Javed RN RN os Triston, Tanisha, RN RN cm10 Corrections: (The following items were deleted from the chart) 16:40 16:35 Chief complaint: Patient states: Pt states that he was pulling a palm tree out cm10 and it came down hit him in the right arm and "I think that I have a thorn in my arm. I looked on [employer] and it says that all palm tree thorns are dangerous so I am here because it is swollen." cm10
--- NOTE | 2022-09-04 17:12 | EDPHYS ---
Physician Documentation [facility] Name: Jem Garnica Jr Age: 32 yrs Sex: Male : 1990 Arrival Date: 09/04/2022 Time: 16:26 Bed 11 Private MD: ED Physician Evangelist Poole HPI: 09/04 16:44 This 32 yrs old Black Male presents to ER via Ambulatory with complaints of Hand bs3 Swelling. 16:44 32-year-old male no significant past medical history presents with swelling to the bs3 dorsum of his right hand he notes that it got caught by a branch he did have bleeding at that time it happened of a couple hours prior to arrival he denies fevers chills shortness or anything else bothering him. He did not take anything for the pain touching makes it worse nothing makes it better. Historical: - Allergies: 16:37 NKDA; cm10 - PMHx: 16:37 Asthma; cm10 - Immunization history:: Adult Immunizations unknown. - Social history:: Smoking status: Patient reports the use of cigarette tobacco products, denies chronic smoking, but will smoke occasionally. ROS: 16:44 Constitutional: Negative for fever, chills bs3 16:44 All other systems are negative. Exam: 16:44 Constitutional: This is a well developed, well nourished patient who is awake, alert, bs3 and in no acute distress. Head/Face: Normocephalic, atraumatic. Eyes: Pupils equal round and reactive to light, extra-ocular motions intact. Lids and lashes normal. ENT: mmm, no posterior phyarngeal erythema Neck: Trachea midline, no thyromegaly, no neck stiffness Chest/axilla: Normal chest wall appearance and motion. Nontender with no deformity. No lesions are appreciated. Cardiovascular: Regular rate and rhythm with a normal S1 and S2. symmetric pulses in upper extremities MS/ Extremity: Mild swelling to the dorsum of his right wrist just proximal to his distal radius no visible puncture wound Neuro: Awake and alert, GCS 15, oriented to person, place, time, and situation. Cranial nerves II-XII grossly intact. Motor strength 5/5 in all extremities. Sensory grossly intact. Psych: Awake, alert, with orientation to person, place and time. Behavior, mood, and affect are within normal limits. Vital Signs: 16:35 BP 123 / 77; Pulse 72; Resp 18; Temp 98.3(TE); Pulse Ox 99% ; Weight 113.4 kg (R); cm10 Height 5 ft. 11 in. ; Pain 12/30; 16:35 Body Mass Index 34.87 (113.40 kg, 180.34 cm) cm10 16:35 Pain Scale: Adult cm10 MDM: 16:42 Patient medically screened. bs3 16:44 Data reviewed: vital signs, nurses notes. ED course: Will rule out fracture will rule bs3 out obvious foreign body advised NSAIDs and return precautions for increasing swelling or or any other concerning symptom. 17:10 ED course: X-ray negative for foreign body as interpreted by myself. bs3 09/04 16:43 Order name: Wrist Right 3 View XRAY bs3 Administered Medications: 17:09 Drug: Ketorolac IM 30 mg Route: IM; Site: right deltoid; iw 17:30 Follow up: Response: No adverse reaction aa5 17:10 Drug: Tetanus-Diphtheria Toxoid IM Adult 0.5 ml {[employer] F[employer]: [email or web address]. Exp: iw 08/31/2023. Lot #: [id number]. } Route: IM; Site: left deltoid; 17:30 Follow up: Response: No adverse reaction aa5 Disposition Summary: 09/04/22 17:11 Discharge Ordered Location: Home bs3 Problem: new bs3 Symptoms: have improved bs3 Condition: Stable bs3 Diagnosis - Pain in right wrist bs3 - Puncture wound without foreign body of right wrist bs3 Followup: bs3 - With: Private Physician - When: 1 week - Reason: Re-evaluation by your physician Discharge Instructions: - Discharge Summary Sheet bs3 - Wrist Pain, Adult bs3 Forms: - Medication Reconciliation Form bs3 - Thank You Letter bs3 - Antibiotic Education bs3 - Prescription Opioid Use bs3 Prescriptions: - Anaprox DS 550 mg Oral Tablet - take 1 tablet by ORAL route every 12 hours As needed; 10 tablet; Refills: 0, bs3 Product Selection Permitted - Cephalexin 500 mg Oral Capsule - take 1 capsule by ORAL route every 6 hours for 5 days; 20 capsule; Refills: 0, bs3 Product Selection Permitted Signatures: Dispatcher [employer] EDLorena Ruiz RN RN iw Evangelist Poole MD MD bs3 Tanisha Goldstein NIKITA RN cm10 Deidra Ruiz RN aa5
[2022-09-04 17:42] VITALS: BP 123/77; TEMP 98.3; O2SAT 99
--- NOTE | 2022-09-04 17:44 | RAD REPORT ---
EXAM DESCRIPTION: RAD - Wrist Right 3 View - 09/04/2022 5:17 pm CLINICAL HISTORY: puncture wound dorsum Pain COMPARISON: Wrist Right 3 View dated 11/28/2012 FINDINGS: Hardware is present within the scaphoid. 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 No acute fracture or dislocation.
== END 2022-09-04 17:33 | disposition home or self-care (01) ==
LOC: ER 16:26
DX: S61.531A Puncture wound without foreign body of right wrist, initial encounter (principal); Z23 Encounter for immunization; F17.210 Nicotine dependence, cigarettes, uncomplicated
CPT/HCPCS: 90471; 90714; 96372; 99284

== ENCOUNTER 2022-10-25 20:06 | Emergency (ER) | payer OTHER ==
--- OUTSIDE RECORDS SUMMARY | 2022-10-25 20:09 | XMS REPORT | Continuity of Care Document ---
:1990 Author Organization [facility] t Address [address] [place] [address] Care Team Providers Name Role Phone Blanks Radha PURVIS Primary Care Physician [phone] HONG REDDING Attending Clinician Unavailable Hong Redding MD Attending Clinician Doctor Unassigned, [place] Attending Clinician Unavailable AMISHA TORRES Attending Clinician [...] Effective Date Expiration Date Parminder WOODSON II [id number] 2020 00:00:00 Problems Condition Condition Condition Status Onset Resolution Last Treating Co mments Source Name Details Category Date Date Treatment Clinician Date 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 2-11 [place] Hemiplegic Hemiplegic Disease Active U nivers migraine migraine 2-11 ity of without without 00:00: [place] status status 00 Medical migrainosu migrainosu Br anch s, not s, not intractabl intractabl e e Allergies, Adverse Reactions, Alerts Allergy Allergy Status Severity Reaction(s) Onset Inactive Treating Comm ents Source Name Type Date Date Clinician NO KNOWN Drug Active Univers ALLERGIE Class ity of S [facility] Social History Social Habit Start Date Stop Date Quantity Comments Source History SDWY University o f Alcohol Frequency [facility] History SDWY University o f Alcohol Std Drinks [facility] [place] [facility] History [facility] o f Alcohol Binge [facility] History of tobacco Cigarette Smoker University of use [facility] [place] [facility] Exposure to 2022-07-07 2022-07-17 Not sure University of SARS-CoV-2 (event) 00:00:00 07:43:00 [facility] [place] [facility] Cigarettes smoked 2022-07-17 2022-07-17 Univers ity of current (pack per 00:00:00 00:00:00 [facility] ) - Reported Branch Tobacco use and 2022-07-17 2022-07-17 Smokeless Universit y of exposure 00:00:00 00:00:00 tobacco non-user [facility] Tobacco Comment 2022-07-17 2022-07-17 2 packs a week Unive rsity of 00:00:00 00:00:00 [facility] [place] [facility] Alcohol Comment 2021-05-03 2021-05-03 6 beers a week Unive rsity of 00:00:00 00:00:00 [facility] [place] [facility] Sex Ass[birth year] At [birth year] Universit y of 00:00:00 00:00:00 [facility] [place] [facility] Smoking Status Start Date Stop Date Source Smokes tobacco daily 2022-07-17 00:00:00 Univers ity of [place] [facility] [place] Medications Ordered Filled Start Stop Current Ordering Indication Dosage Frequency Signature Comments Components Source Medication Medication Date Date Medication? Clinician (SIG) Name Name ketorolac 2022- No 30mg 30 mg, Unive rs (TORADOL) 06-09- Slow IV ity of injection 19:00: 18:07 Push, [place] 30 mg 00 :00 ONCE, 1 Medical dose, On Branch 06/09/22 at 1400, WILI naproxen Yes [id number] 500mg Take 1 Un kayla (NAPROSYN) 3-20 tablet by ity of 500 mg 00:00: mouth in [place] tablet 00 the Medical morning Branch and 1 tablet in the evening. Take with meals. naproxen Yes [id number] 500mg Take 1 Un kayla (NAPROSYN) 3-20 tablet by ity of 500 mg 00:00: mouth in [place] tablet 00 the Medical morning Branch and 1 tablet in the evening. Take with meals. naproxen Yes [id number] 500mg Take 1 Un kayla (NAPROSYN) 3-20 tablet by ity of 500 mg 00:00: mouth in [place] tablet 00 the Medical morning Branch and 1 tablet in the evening. Take with meals. naproxen Yes [id number] 500mg Take 1 Un kayla (NAPROSYN) 3-20 tablet by ity of 500 mg 00:00: mouth in [place] tablet 00 the Medical morning Branch and 1 tablet in the evening. Take with meals. dexamethaso 2021- No 8mg 8 mg, Univ ers ne 11-23 Intramuscu ity of (DECADRON 03:15: 02:29 lar, ONCE, [place] PHOSPHATE) 00 :00 1 dose, On Med ical injection Thu11/22/21 Br anch mg at 2215, WILI methylPREDN Yes [id number] Take by Univers ISolone 4 11-22 mouth ity of mg tablets 00:00: SEE-INSTRU [place] 00 CTIONS. Medical follow Branch package directions hydrOXYzine Yes [id number] 25mg Take 1 Univers 25 mg 11-22 capsule by ity of capsule 00:00: mouth 3 [place] 00 (three) Medical times Branch daily as needed for Itching. methylPREDN 2022-0 Yes [id number] Take by Univers ISolone 4 9-02 mouth ity of mg tablets 00:00: [place]-INSTRU [place] 00 CTIONS. Medical follow Branch package directions hydrOXYzine 2-0 Yes [id number] 25mg Take 1 Univers 25 mg 9-02 capsule by ity of capsule 00:00: mouth 3 (three) Medical times Branch daily as needed for Itching. methylPREDN 2-0 Yes [id number] Take by Univers ISolone 4 9-02 mouth ity of mg tablets 00:00: SEE-INSTRU [place] 00 CTIONS. Medical follow Branch package directions hydrOXYzine 2-0 Yes [id number] 25mg Take 1 Univers 25 mg 9-02 capsule by ity of capsule 00:00: mouth 3 (three) Medical times Branch daily as needed for Itching. methylPREDN 2-0 Yes [id number] Take by Univers ISolone 4 9-02 mouth ity of mg tablets 00:00: [place]-INSTRU [place] 00 CTIONS. Medical follow Branch package directions hydrOXYzine 2021-0 Yes [id number] 25mg Take 1 Univers 25 mg 9-02 capsule by ity of capsule 00:00: mouth 3 (three) Medical times Branch daily as needed for Itching. methylPREDN 2-0 Yes [id number] Take by Univers ISolone 4 9-02 mouth ity of mg tablets 00:00: [place]-INSTRU [place] 00 CTIONS. Medical follow Branch package directions hydrOXYzine 2-0 Yes [id number] 25mg Take 1 Univers 25 mg 9-02 capsule by ity of capsule 00:00: mouth 3 (three) Medical times Branch daily as needed for Itching. ubrogepant 2022-0 Yes [id number] 100mg Take 100 Univers (UBRELVY) 4-14 mg by ity of 100 mg Tab 00:00: mouth as [place] 00 needed for Medical Pain Branch (scale 4-6) or Pain (scale 7-10). verapamiL 2022-0 Yes [id number] 120mg Take 1 U nivers 120 mg 24 4-14 capsule by ity of hr capsule 00:00: mouth at [place] 00 bedtime. Medical Branch ubrogepant 0 Yes [id number] 100mg Take 100 Univers (UBRELVY) 4-14 mg by ity of 100 mg Tab 00:00: mouth as [place] 00 needed for Medical Pain Branch (scale 4-6) or Pain (scale 7-10). verapamiL 0 Yes [id number] 120mg Take 1 U nivers 120 mg 24 4-14 capsule by ity of hr capsule 00:00: mouth at [place] 00 bedtime. Medical Branch ubrogepant Yes [id number] 100mg Take 100 Univers (UBRELVY) 4-14 mg by ity of 100 mg Tab 00:00: mouth as [place] 00 needed for Medical Pain Branch (scale 4-6) or Pain (scale 7-10). verapamiL 0 Yes [id number] 120mg Take 1 U nivers 120 mg 24 4-14 capsule by ity of hr capsule 00:00: mouth at [place] 00 bedtime. Medical Branch ubrogepant Yes [id number] 100mg Take 100 Univers (UBRELVY) 4-14 mg by ity of 100 mg Tab 00:00: mouth as [place] 00 needed for Medical Pain Branch (scale 4-6) or Pain (scale 7-10). verapamiL 0 Yes [id number] 120mg Take 1 U nivers 120 mg 24 4-14 capsule by ity of hr capsule 00:00: mouth at [place] 00 bedtime. Medical Branch ubrogepant Yes [id number] 100mg Take 100 Univers (UBRELVY) 4-14 mg by ity of 100 mg Tab 00:00: mouth as [place] 00 needed for Medical Pain Branch (scale 4-6) or Pain (scale 7-10). verapamiL 0 Yes [id number] 120mg Take 1 U nivers 120 mg 24 4-14 capsule by ity of hr capsule 00:00: mouth at [place] 00 bedtime. Medical Branch ubrogepant 0 Yes [id number] 100mg Take 100 Univers (UBRELVY) 4-14 mg by ity of 100 mg Tab 00:00: mouth as [place] 00 needed for Medical Pain Branch (scale 4-6) or Pain (scale 7-10). ubrogepant 2022-0 Yes [id number] 100mg Take 100 Univers (UBRELVY) 4-14 mg by ity of 100 mg Tab 00:00: mouth as [place] 00 needed for Medical Pain Branch (scale 4-6) or Pain (scale 7-10). verapamiL 2022- No [id number] 120mg Take 1 Univers 120 mg 24 4-14 04-27 capsule by ity of hr capsule 00:00: 00:00 [place] :00 bedtime. Medical Branch verapamiL 2022- No [id number] 120mg Take 1 Univers 120 mg 24 [...] Uni vers lc,min/FA/K 2-11 mouth. ity of lycop 11:58: [place] (ONE-A-DAY 42 Medical MEN'S Branch COMPLETE ORAL) multivit,ca 2021-0 Yes Take by Uni vers lc,min/FA/K 2-11 mouth. ity of lycop 11:58: [place] (-A-DAY 42 Medical MEN'S Branch COMPLETE ORAL) multivit,ca 2021-0 Yes Take by Uni vers lc,min/FA/K 2-11 mouth. ity of lycop 11:58: [place] (ONE-A-DAY 42 Medical MEN'S Branch COMPLETE ORAL) proMETHazin 2021-0 Yes [id number] 12.5mg Take 1 Univers e 12.5 mg 2-11 tablet by ity o f tablet 00:00: mouth [place] 00 every 4 Medical (four) Branch hours as needed for N/V unresponsi ve to Ondansetro n or N/V alternatin g with Ondansetro n. cyclobenzap 2021-0 Yes [id number] 10mg Take 1 Univers rine 10 mg 2-11 tablet by ity of tablet 00:00: mouth 3 [place] 00 (three) Medical times Branch daily. cetirizine 2021-0 Yes [id number] 10mg Take 1 Univers 10 mg 2-11 tablet by ity of tablet 00:00: mouth [place] 00 daily. Medical Branch proMETHazin 2021-0 Yes [id number] 12.5mg Take 1 Univers e 12.5 mg 2-11 tablet by ity o f tablet 00:00: mouth [place] 00 every 4 Medical (four) Branch hours as needed for N/V unresponsi ve to Ondansetro n or N/V alternatin g with Ondansetro n. cyclobenzap 2021-0 Yes [id number] 10mg Take 1 Univers rine 10 mg 2-11 tablet by ity of tablet 00:00: mouth 3 [place] 00 (three) Medical times Branch daily. cetirizine 2021-0 Yes [id number] 10mg Take 1 Univers 10 mg 2-11 tablet by ity of tablet 00:00: mouth [place] 00 daily. Medical Branch proMETHazin 2021-0 Yes [id number] 12.5mg Take 1 Univers e 12.5 mg 2-11 tablet by ity o f tablet 00:00: mouth [place] 00 every 4 Medical (four) Branch hours as needed for N/V unresponsi ve to Ondansetro n or N/V alternatin g with Ondansetro n. cyclobenzap 2021-0 Yes [id number] 10mg Take 1 Univers rine 10 mg 2-11 tablet by ity of tablet 00:00: mouth 3 [place] 00 (three) Medical times Branch daily. cetirizine 2021-0 Yes [id number] 10mg Take 1 Univers 10 mg 2-11 tablet by ity of tablet 00:00: mouth [place] 00 daily. Medical Branch proMETHazin 2021-0 Yes [id number] 12.5mg Take 1 Univers e 12.5 mg 2-11 tablet by ity o f tablet 00:00: mouth [place] 00 every 4 Medical (four) Branch hours as needed for N/V unresponsi ve to Ondansetro n or N/V alternatin g with Ondansetro n. cyclobenzap 2021-0 Yes [id number] 10mg Take 1 Univers rine 10 mg 2-11 tablet by ity of tablet 00:00: mouth 3 [place] 00 (three) Medical times Branch daily. cetirizine 2021-0 Yes [id number] 10mg Take 1 Univers 10 mg 2-11 tablet by ity of tablet 00:00: mouth [place] 00 daily. Medical Branch proMETHazin 2021-0 Yes [id number] 12.5mg Take 1 Univers e 12.5 mg 2-11 tablet by ity o f tablet 00:00: mouth [place] 00 every 4 Medical (four) Branch hours as needed for N/V unresponsi ve to Ondansetro n or N/V alternatin g with Ondansetro n. cyclobenzap 2021-0 Yes [id number] 10mg Take 1 Univers rine 10 mg 2-11 tablet by ity of tablet 00:00: mouth 3 [place] 00 (three) Medical times Branch daily. cetirizine 2021-0 Yes [id number] 10mg Take 1 Univers 10 mg 2-11 tablet by ity of tablet 00:00: mouth [place] 00 daily. Medical Branch proMETHazin 2021-0 Yes [id number] 12.5mg Take 1 Univers e 12.5 mg 2-11 tablet by ity o f tablet 00:00: mouth [place] 00 every 4 Medical (four) Branch hours as needed for N/V unresponsi ve to Ondansetro n or N/V alternatin g with Ondansetro n. cyclobenzap 2021-0 Yes [id number] 10mg Take 1 Univers rine 10 mg 2-11 tablet by ity of tablet 00:00: mouth 3 [place] 00 (three) Medical times Branch daily. cetirizine 2021-0 Yes [id number] 10mg Take 1 Univers 10 mg 2-11 tablet by ity of tablet 00:00: mouth 00 daily. Medical Branch proMETHazin Yes [id number] 12.5mg Take 1 Univers e 12.5 mg 2-11 tablet by ity o f tablet 00:00: mouth 00 every 4 Medical (four) Branch hours as needed for N/V unresponsi ve to Ondansetro n or N/V alternatin g with Ondansetro n. cyclobenzap Yes [id number] 10mg Take 1 Univers rine 10 mg 2-11 tablet by ity of tablet 00:00: mouth 3 00 (three) Medical times Branch daily. cetirizine Yes [id number] 10mg Take 1 Univers 10 mg 2-11 tablet by ity of tablet 00:00: mouth 00 daily. Medical Branch Vital Signs Vital Name Observation Time Observation Value Comments Source Systolic blood 2022-07-17 13:06:00 120 mm[Hg] Univer sity [facility] Diastolic blood 2022-07-17 13:06:00 76 mm[Hg] Unive rsity [facility] Heart rate 2022-07-17 13:06:00 78 /min [facility] Body temperature 2022-07-17 13:06:00 36.39 [facility] Body height 2022-07-17 13:06:00 180.3 cm [facility] Body weight 2022-07-17 13:06:00 117.028 kg [facility] BMI 2022-07-17 13:06:00 35.98 kg/m2 [facility] Oxygen saturation in 2022-07-17 13:06:00 99 /min [facility] Arterial blood by [facility] Pulse oximetry Branch Systolic blood 2022-06-09 19:00:00 112 mm[Hg] Univer sity of [facility] Diastolic blood 2022-06-09 19:00:00 72 mm[Hg] Unive rsity [facility] Heart rate 2022-06-09 19:00:00 61 /min [facility] Respiratory rate 2022-06-09 19:00:00 15 /min [facility] Oxygen saturation in 2022-06-09 19:00:00 97 /min [place] of Arterial blood by [facility] Pulse oximetry Branch Body temperature 2022-06-09 16:00:00 36 [facility] Body weight 2022-06-09 16:00:00 110.678 kg [facility] BMI 2022-06-09 16:00:00 35.01 kg/m2 [facility] Systolic blood 2021-11-23 02:00:00 114 mm[facility]Hg[facility] Diastolic blood 2021-11-23 02:00:00 68 mm[Hg] [facility] [place] Heart rate 2021-11-23 02:00:00 67 /min [facility] Respiratory rate 2021-11-23 02:00:00 16 /min [facility] Oxygen saturation in 2021-11-23 02:00:00 97 /min University Arterial blood by [facility] Pulse oximetry Branch Body temperature 2021-11-23 01:46:00 36.06 [facility] Body height 2021-11-23 01:46:00 177.8 cm [facility] Body weight 2021-11-23 01:46:00 110.768 kg [facility] BMI 2021-11-23 01:46:00 35.04 kg/m2 [facility] Procedures Procedure Date / Time Performing Clinician Source Performed ASSIGNMENT OF BENEFITS 2022-07-17 12:45:16 Doctor Unassigned, [facility] XR CHEST 1 VW 2022-06-09 16:54:00 Amisha [facility] TROPONIN I 2022-06-09 16:37:00 [facility] COMP. METABOLIC PANEL 2022-06-09 16:37:[address] [facility] ([id number]) [facility] CBC WITH DIFF 2022-06-09 16:37:00 [facility] CONSENT/REFUSAL FOR 2022-06-09 16:01:44 Doctor Unasscasey, [facility] DIAGNOSIS AND TREATMENT [place] [facility] CONSENT/REFUSAL FOR 2022-06-09 15:57:30 [facility] DIAGNOSIS AND TREATMENT [place] [facility] [place] NOTICE OF PRIVACY 2021-11-23 01:27:11 Doctor Mikayla [facility] PRACTICES [place] [facility] CONSENT/REFUSAL FOR 2021-11-23 01:25:40 Doctor Yair Degroot [facility] DIAGNOSIS AND TREATMENT [place] [facility] [place] MEDICATION CORRESPONDENCE 2021-07-12 05:01:00 Doctor Mikayla [facility] [place] [facility] [place] Encounters Start End Encounter Admission Attending Care Care Encounter Source Date/Time Date/Time Type Type Clinicians Facility Department ID 2022-07-17 2022-07-17 Outpatient R MILADIS [facility] [id number] Univers 08:00:00 08:26:17 [facility] ity o f [facility] [place] [facility] 2022-07-17 2022-07-17 Office Miladis [facility] [id number] Univers 08:00:00 08:26:17 Visit [facility] 350.1.13.10 i ty of [place] [id number] [facility] 059 Branch OFFICE BUILDING 2022-07-17 2022-07-17 Orders Doctor SALMERON 1.2.840.114 [id number] Univers 00:00:00 00:00:00 Only Unassigned, SHAW[place] 350.1.13.10 ity of [place] [facility] 4.2.7.2.686 Ced[place] as [id number] [facility] 009 Branch 2022-06-09 2022-06-09 Emergency X [facility] ERT [id number] Univers 11:02:00 14:25:00 AMISHA ity of [facility] [place] [facility] 2022-06-09 2022-06-09 [facility] [id number] Univers 11:02:00 14:25:00 Amisha S [place] 350.1.13.10 i ty of [place] 4[place]2.7.2.[place] [id number] [facility] 084 Branch 2022-01-23 2022-01-23 [facility] [id number] Univers 09:00:00 09:00:00 CHRISTIANO [facility] 2021-11-22 2021-11-22 Emergency [facility] [id number] Univers 20:49:00 22:38:00 Princess MORALES 350.1.13.10 i ty of [place] 4.2.7.2.[place] [id number] [address] 2021-11-22 2021-11-22 Emergency [facility] ERT [id number] Univers 20:49:00 22:38:00 PRINCESS [facility] 2021-07-12 2021-07-12 Orders Doctor FAVIOLA 1.2.840.114 [id number] Univers 00:00:00 00:00:00 Only Unassigned, [place] 350.1.13.10 ity of [place] [facility] 4.2.7.2.686 [place] as [id number] [address] 2021-07-04 2021-07-04 [facility] 1.2.840.114 [id number] Univers 13:00:00 13:00:00 Visit Eachpal 350.1.13.10 it y of [place] [id number] [address] OFFICE BUILDING 2021-07-04 2021-07-04 Outpatient R DEDRA [facility] [id number] Univers 13:00:00 12:59:08 KETURAHESPINOZA [facility] 2021-07-04 2021-07-04 Telephone [facility] [id number] Univers 00:00:00 00:00:00 Lycia HEALTH 350.1.13.10 it y [place] [id number] [address] OFFICE BUILDING 2021-07-04 2021-07-04 Telephone [facility] [id number] Univers 00:00:00 00:00:00 Lycia HEALTH 350.1.13.10 it y [place] [id number] [address] OFFICE [facility] 2021-07-04 2021-07-04 Telephone [facility] [id number] Univers 00:00:00 00:00:00 [facility] 350.1.13.10 it y of [place]2.[place] [id number] [address] OFFICE [facility] 2021-05-03 2021-05-03 Outpatient [facility] [id number] Univers 11:00:00 11:48:33 LYCESPINOZA [facility] 2021-05-03 2021-05-03 Office [facility] 1.2.840.114 [id number] Univers 11:00:00 11:48:33 Visit [facility] 350.1.13.10 it y of [place] [id number] [address] OFFICE [facility] 2021-04-14 2021-04-15 Emergency [facility] ERT [id number] Univers 18:26:00 00:02:00 AFUA [facility] 2021-04-14 2021-04-15 Emergency [facility] [id number] Univers 18:26:00 00:02:00 Afua MORAL[place] 350.1.13.10 ity of [place] 4.2.7.2.686 [facility] [id number] [address] 2021-03-24 2021-03-24 Emergency [facility] [id number] Univers 19:36:00 20:05:00 MEGAN [facility] 2021-03-24 2021-03-24 Emergency [facility] 1.2.840.114 [id number] Univers 19:36:00 20:05:00 Megan MORALES 350.1.13.10 ity of [facility] 4.2.7.2.686 [facility] [id number] [address] 2020-11-11 2020-11-11 Letter FAVIOLA Pimentel 1.2.840.114 [id number] Univers 00:00:00 00:00:00 (Out) Isabel Cifuentes [place] 350.1.13.10 it y of HOSPITAL 4.2.7.2.686 [place]ed[place] as [id number] [address] 2020-11-10 2020-11-10 Outpatient R UNKNOWN, [facility] [id number] Univers 11:00:00 11:00:00 ATTENDING ity of [facility] 2020-11-06 2020-11-06 Tono Fry [facility] 1.2.840.114 [id number] Univers 00:00:00 00:00:00 (Out) [facility] Health 350.1.13.10 i ty of [place] 4.2.7.2.686 Cedric as Professio [id number] [address] Office Building One 2020-10-31 2020-10-31 Laboratory Lab, Adc Fam Pob I [facility] 1.2. [id number] [id number] Univers 17:22:56 19:08:45 Only [facility] 350.1.13.10 ity of [place] 4.2.7.2.686 [place]edric as Professio [id number] [address] Office [facility] 2020-10-31 2020-10-31 Outpatient R LATRICE [facility] [id number] Univers 17:00:00 17:00:00 GRACE rousseau o f [facility] [place] [facility] 2020-10-31 2020-10-31 Letter Doctor [place] 1.2.840.114 [id number] Univers 00:00:00 00:00:00 (Out) Unassigned, [place] 350.1.13.10 ity of [place] [facility] 4.2.7.2.686 Cedric as [id number] [address] 2020-10-31 2020-10-31 Letter Doctor SALMERON 1.2.840.114 [id number] Univers 00:00:00 00:00:00 (Out) Unassigned, [place] 350.1.13.10 ity of [place] [facility] 4.2.7.2.686 [place]ed[place] as [id number] [address] 2020-10-31 2020-10-31 Letter Doctor FAVIOLA 1.2.840.114 [id number] Univers 00:00:00 00:00:00 (Out) UnassignedSHAWN 350.1.13.10 ity of [place] [facility] 4.2.7.2.686 [place] as [id number] [address] 2020-10-31 2020-10-31 Letter Doctor FAVIOLA 1.2.840.114 [id number] Univers 00:00:00 00:00:00 (Out) UnassignedSHAWN 350.1.13.10 ity of [place] [facility] 4.2.7.2.686 [place] as [id number] [address] Results Test Description Test Time Test Comments Results Result Comments Source TROPONIN I 2022-06-09 17:25:59 Test Item Value Reference Range Interpretation Comme nts TROPONIN I (test code = 8790602270) 0.002 ng/mL <=0.034 ZAKIA (test code = [...] biotin. Lab Interpretation (test code = Normal 17736-5) [facility]60294[facility]2022-[facility]-09 17:16:40 Test Item Value Reference Range Interpretation Comments NA (test code = 139 mmol/L 135-145 3611404148) K (test code = 4.4 mmol/L 3.5-5.0 9771397998) CL (test code = 105 mmol/L 98-108 4145420325) CO2 TOTAL (test code 23 mmol/L 23-31 = 8199895954) AGAP (test code = 11 2-16 4146925450) BUN (test code = 13 mg/dL 7-23 1930289338) GLUCOSE (test code = 95 mg/dL 70-110 1826208822) CREATININE (test code 0.84 mg/dL 0.60-1.25 = 8335090108) TOTAL BILI (test code 0.7 mg/dL 0.1-1.1 = 2552645203) CALCIUM (test code = 9.1 mg/dL 8.6-10.6 4923097148) T PROTEIN (test code 7.3 g/dL 6.3-8.2 = 8713443379) ALBUMIN (test code = 4.5 g/dL 3.5-5.0 3691498663) ALK PHOS (test code = 62 U/L 34-122 3360826969) ALTv (test code = 20 U/L 5-50 2-6) AST(SGOT) (test code 20 U/L 13-40 = 8345355933) eGFR (test code = 107.3 mL/min/1.73m2 3523391479) ZAKIA (test code = ZAKIA) Association of [...] or urine or abnormalities in imaging tests). [facility] WITH [id number] 17:03:58 Test Item Value Reference Range Interpretation [...] (test code = 35.5 fL 38.5-51.6 L 29948-4) RDW-CV (test code = 11.9 % 12.1-15.4 L 788-0) PLT (test code = 194 See_Comment [Automated 777-3) message] The sy stem which generated this result transmitted reference range : 150 - 328 10*3/ ?L. The reference r chip was not used to interpret this result as normal/abnormal . MPV (test code = 10.9 fL 9.8-13.0 10282-5) NRBC/100 WBC (test 0.0 See_Comment [Automat ed code = 7702723530) message] The system which generated this result transmitted reference range : 0.0 - 10.0 /100 WBCs. The refer ence range was not u sed to interpret th is result as normal/abnormal . NRBC x10^3 (test code See_Comment [Auto mated = 7862808321) message] The s ystem which generated this result transmitted reference range : 10*3/?L. The reference range was not used to interpret this result as normal/abnormal . GRAN MAT (NEUT) % 69.6 % (test code = 770-8) IMM GRAN % (test code 0.30 % = 4009105931) LYMPH % (test code = 20.4 % 736-9) MONO % (test code = 6.9 % 5905-5) EOS % (test code = 2.4 % 713-8) BASO % (test code = 0.4 % 706-2) GRAN MAT x10^3(ANC) 6.74 10*3/uL 1.99-6.95 (test code = 2727947865) IMM GRAN x10^3 (test 0.03 10*3/uL 0.00-0.06 code = 6494482243) LYMPH x10^3 (test code 1.97 10*3/uL 1.09-3.23 = 731-0) MONO x10^3 (test code 0.67 10*3/uL 0.36-1.02 = 742-7) EOS x10^3 (test code = 0.23 10*3/uL 0.06-0.53 711-2) BASO x10^3 (test code 0.04 10*3/uL 0.01-0.09 = 704-7) Lab Interpretation Abnormal (test code = 81547-6) [facility]"
[2022-10-25] MEDS ORDERED: MORPHINE 4 MG/ML SYR ONE (21:12)
[2022-10-25] MEDS ORDERED: KETOROLAC 30 MG/ML INJ ONE (21:12)
[2022-10-25] MEDS ORDERED: ONDANSETRON 4 MG/2 ML VIAL ONE (21:13)
[2022-10-25] MEDS ORDERED: FAMOTIDINE 20 MG/2 ML VIAL IV ONE (21:13)
[2022-10-25] MEDS ORDERED: NA CHLORIDE 0.9% 1,000 ML ONE (21:13)
[2022-10-25 21:31] LABS: Hematocrit 40.9 % (39.6-49.0); Lymphocytes % 31.4 % (15.3-44.8); MCV 83.6 fL (80-100); RBC Red Blood Cell Count 4.89 M/uL (4.33-5.43)
[2022-10-25 21:33] LABS: Specific Gravity >= 1.030 (1.005-1.030); Urine Bilirubin Negative (Negative); Urine Blood Negative (Negative); Urine Clarity Clear (Clear); Urine Color Yellow (Yellow); Urine Glucose Negative (Negative); Urine Protein Negative (Negative); Urine Urobilinogen 0.2 mg/dL (0.2-1.0); Urine pH 5.5 (5.0-7.0)
[2022-10-25 21:43] LABS: Bilirubin Total 0.9 mg/dL (0.2-1.0); Potassium 3.7 mEq/L (3.5-5.1); Protein, Total 7.4 g/dL (6.4-8.2)
--- NOTE | 2022-10-25 23:43 | ER ---
Nurse's Notes [facility] Name: Jem Garnica Jr Age: 32 yrs Sex: Male : 1990 Arrival Date: 10/25/2022 Time: 20:06 Bed 13 Private MD: Diagnosis: Abdominal pain, Generalized;Acid reflux, acute gastroenteritis, nausea vomiting and diarrhea, GERD Presentation: 10/25 20:17 Chief complaint: Patient states: NAUSEA,VOMITING, DIARRHEA x2 DAYS. Coronavirus screen: bp At this time, the client does not indicate any symptoms associated with coronavirus-19. Ebola Screen: No symptoms or risks identified at this time. Initial Sepsis Screen: Does the patient meet any 2 criteria? No. Patient's initial sepsis screen is negative. Does the patient have a suspected source of infection? No. Patient's initial sepsis screen is negative. Risk Assessment: Do you want to hurt yourself or someone else? Patient reports no desire to harm self or others. Onset of symptoms is unknown. 20:17 Method Of Arrival: Ambulatory bp 20:17 Acuity: CHACORTA 3 bp Triage Assessment: 20:18 General: Appears uncomfortable, Behavior is calm, cooperative, appropriate for age. bp Pain: Complains of pain in abdomen. EENT: No deficits noted. Neuro: No deficits noted. Cardiovascular: No deficits noted. Respiratory: No deficits noted. GI: Reports diarrhea, nausea, vomiting. : No signs and/or symptoms were reported regarding the genitourinary system. Derm: No deficits noted. Musculoskeletal: No deficits noted. Historical: - Allergies: 20:18 No Known Drug Allergies; bp - Home Meds: 20:18 None [Active]; bp - PMHx: 20:18 None; bp - Immunization history:: Adult Immunizations up to date. - Social history:: Smoking status: Patient denies any tobacco usage or history of. - Family history:: not pertinent. Screenin:19 [facility] ED Fall Risk Assessment (Adult) History of falling in the last 3 months, bp including since admission No falls in past 3 months (0 pts). Abuse screen: Denies threats or abuse. Denies injuries from another. Nutritional screening: No deficits noted. Tuberculosis screening: No symptoms or risk factors identified. Assessment: 20:19 General: SEE TRIAGE NOTE. bp 21:10 General: Appears in no apparent distress. comfortable, well groomed, well developed, pf1 Behavior is calm, cooperative, appropriate for age, quiet. Pain: Complains of pain in abdomen Pain currently is 10 out of 10 on a pain scale. Also complains of nausea. Neuro: No deficits noted. Level of Consciousness is awake, alert, obeys commands, Oriented to person, place, time, situation. Cardiovascular: No deficits noted. Capillary refill < 3 seconds Patient's skin is warm and dry. Respiratory: No deficits noted. Airway is patent Respiratory effort is even, unlabored, Respiratory pattern is regular, symmetrical. GI: Abdomen is round non-distended, Abd is soft Abdomen is tender to palpation in left lower quadrant. GI: Reports lower abdominal pain, upper abdominal pain, diarrhea, nausea, vomiting. : No deficits noted. No signs and/or symptoms were reported regarding the genitourinary system. EENT: No deficits noted. No signs and/or symptoms were reported regarding the EENT system. Derm: No deficits noted. No signs and/or symptoms reported regarding the dermatologic system. 22:00 Reassessment: Patient and/or family updated on plan of care and expected duration. Pain fu level reassessed. Patient is alert, oriented x 3, equal unlabored respirations, skin warm/dry/pink. 22:30 Reassessment: Patient and/or family updated on plan of care and expected duration. Pain fu level reassessed. Patient is alert, oriented x 3, equal unlabored respirations, skin warm/dry/pink. 23:27 Reassessment: Patient and/or family updated on plan of care and expected duration. Pain fu level reassessed. Patient is alert, oriented x 3, equal unlabored respirations, skin warm/dry/pink. Patient states symptoms have improved. 23:47 Reassessment: No changes from previously documented assessment. Patient and/or family fu updated on plan of care and expected duration. Pain level reassessed. Patient is alert, oriented x 3, equal unlabored respirations, skin warm/dry/pink. Vital Signs: 20:17 BP 116 / 70; Pulse 81; Resp 16; Temp 98; Pulse Ox 99% ; Weight 113.4 kg; Height 5 ft. bp 10 in. ; 21:12 BP 131 / 96; Pulse 57; Resp 16; Pulse Ox 97% on R/A; Pain 10/10; pf1 21:48 BP 109 / 65; Pulse 46; Resp 16; Pulse Ox 95% ; Pain 8/10; fu 22:10 Pain 4/10; fu 22:15 BP 113 / 88; Pulse 48; Resp 16; Pulse Ox 96% on R/A; Pain 0/10; fu 22:40 Pain 0/10; fu 20:17 Body Mass Index 35.87 (113.40 kg, 177.8 cm) bp 21:12 Pain Scale: Adult pf1 21:48 Pain Scale: Adult fu 22:10 Pain Scale: Adult fu 22:15 Pain Scale: Adult fu 22:40 Pain Scale: Adult fu ED Course: 20:08 Patient arrived in ED. mr 20:18 Triage completed. bp 20:18 Arm band placed on. bp 20:19 Patient has correct armband on for positive identification. bp 20:49 Edmond Jacobs MD is Attending Physician. sp4 20:57 Scott Morelos, RN is Primary Nurse. fu 21:12 No provider procedures requiring assistance completed. pf1 21:20 Inserted saline lock: 20 gauge in left forearm, using aseptic technique. Blood pf1 collected. 21:23 CBC with Diff Sent. pf1 21:23 CMP Sent. pf1 21:23 Lipase Sent. pf1 23:07 CT Chest, Abdomen, Pelvis - W/Contrast In Process Unspecified. EDMS 23:41 Pato Meraz MD is Referral Physician. sp4 23:41 Pavan Purcell MD is Referral Physician. sp4 10/26 00:25 IV discontinued, bleeding controlled, Pressure dressing applied. fu Administered Medications: 10/25 21:40 Drug: NS 0.9% IV 1000 ml Route: IV; Rate: 1 bolus; Site: left forearm; pf1 21:40 Drug: Famotidine IVP 40 mg Route: IVP; Site: left forearm; pf1 22:40 Follow up: Response: No adverse reaction fu 21:40 Drug: TORadol - Ketorolac IVP 30 mg Route: IVP; Site: left forearm; pf1 22:40 Follow up: Pain 0/10 Adult fu 21:40 Drug: Ondansetron IVP 8 mg Route: IVP; Site: left forearm; pf1 22:40 Follow up: Response: No adverse reaction fu 21:40 Drug: morphine IVP or IV 4 mg Route: IVP; Infused Over: 4 mins; Site: left forearm; pf1 22:10 Follow up: Pain 06/30 Adult fu Medication: 20:19 VIS not applicable for this client. bp Outcome: 23:43 Discharge ordered by . colton 10/26 00:35 Discharged to home ambulatory. fu Condition: stable Discharge instructions given to patient, Instructed on discharge instructions, follow up and referral plans. Demonstrated understanding of instructions, follow-up care, Prescriptions given X 4. 00:36 Patient left the ED. fu Signatures: Dispatcher [employer] EDMS JordanKenia mr MorelosScott, RN RN Max Salgado, RN RN Latrice Butt Elma Frey RN RN pf1 Edmond Jacobs MD MD sp4 Corrections: (The following items were deleted from the chart) 10/25 20:18 20:18 PMHx: Asthma; bp bp 21:46 21:26 Urinalysis+U.LAB.BRZ drawn and sent. [facility]
--- NOTE | 2022-10-25 23:43 | EDPHYS ---
Physician Documentation [facility] Name: Jem Garnica Jr Age: 32 yrs Sex: Male : 1990 Arrival Date: 10/25/2022 Time: 20:06 Bed 13 Private MD: ED Physician Edmond Jacobs HPI: 10/25 20:50 This 32 yrs old Black Male presents to ER via Ambulatory with complaints of Abdominal sp4 Pain, Vomiting/Diarrhea. 23:37 32-year-old male presents ambulatory with complaint of abdominal pain nausea vomiting sp4 diarrhea and acid reflux worsening in the last 3 days. . 23:37 Patient reports abdominal pain is in the upper abdomen mostly in epigastric location sp4 associated with symptoms of acid backing up into his throat causing pain also vomiting and diarrhea. Historical: - Allergies: 20:18 No Known Drug Allergies; bp - Home Meds: 20:18 None [Active]; bp - PMHx: 20:18 None; bp - Immunization history:: Adult Immunizations up to date. - Social history:: Smoking status: Patient denies any tobacco usage or history of. - Family history:: not pertinent. ROS: 23:37 Constitutional: Negative for fever, chills, and weight loss, positive for nausea sp4 vomiting diarrhea abdominal pain Abdomen/GI: Positive for nausea vomiting diarrhea epigastric pain, negative constipation 23:37 All other systems are negative. Exam: 23:37 Constitutional: This is a well developed, well nourished patient who is awake, alert, sp4 and in no acute distress. Head/Face: Normocephalic, atraumatic. Eyes: Pupils equal round and reactive to light, extra-ocular motions intact. Lids and lashes normal. Conjunctiva and sclera are not injected. Cornea within normal limits. Periorbital areas with no swelling, redness, or edema. ENT: Nares patent. No nasal discharge, no septal abnormalities noted. Tympanic membranes are normal and external auditory canals are clear. Oropharynx with no redness, swelling, or masses, exudates, or evidence of obstruction, uvula midline. Mucous membranes moist. Neck: Trachea midline, no thyromegaly or masses palpated, and no cervical lymphadenopathy. Supple, full range of motion without nuchal rigidity, or vertebral point tenderness. Chest/axilla: Normal chest wall appearance and motion. Nontender with no deformity. No lesions are appreciated. Cardiovascular: Regular rate and rhythm with a normal S1 and S2. No gallops, murmurs, or rubs. Normal PMI, no JVD. No pulse deficits. Respiratory: Lungs have equal breath sounds bilaterally, clear to auscultation and percussion. No rales, rhonchi or wheezes noted. No increased work of breathing, no retractions or nasal flaring. Abdomen/GI: Soft, with normal bowel sounds. No distension or tympany. No guarding or rebound. Positive for epigastric tenderness Back: No spinal tenderness. No costovertebral tenderness. Skin: Warm, dry with normal turgor. Normal color with no rashes, no lesions, and no evidence of cellulitis. MS/ Extremity: Pulses equal, no cyanosis. Neurovascular intact. Full, normal range of motion. Neuro: Awake and alert, GCS 15, oriented to person, place, time, and situation. Cranial nerves II-XII grossly intact. Motor strength 5/5 in all extremities. Sensory grossly intact. Psych: Awake, alert, with orientation to person, place and time. Behavior, mood, and affect are within normal limits Vital Signs: 20:17 BP 116 / 70; Pulse 81; Resp 16; Temp 98; Pulse Ox 99% ; Weight 113.4 kg; Height 5 ft. bp 10 in. ; 21:12 BP 131 / 96; Pulse 57; Resp 16; Pulse Ox 97% on R/A; Pain 10/10; pf1 21:48 BP 109 / 65; Pulse 46; Resp 16; Pulse Ox 95% ; Pain 8/10; fu 22:10 Pain 4/10; fu 22:15 BP 113 / 88; Pulse 48; Resp 16; Pulse Ox 96% on R/A; Pain 0/10; fu 22:40 Pain 0/10; fu 20:17 Body Mass Index 35.87 (113.40 kg, 177.8 cm) bp 21:12 Pain Scale: Adult pf1 21:48 Pain Scale: Adult fu 22:10 Pain Scale: Adult fu 22:15 Pain Scale: Adult fu 22:40 Pain Scale: Adult fu MDM: 20:51 Patient medically screened. sp4 23:30 ED course: IMPRESSION: Very minimal dependent infiltrate changes. Cholelithiasis. sp4 Minimal fatty position within the mucosa of the right site colon, nonspecific finding perhaps related to chronic inflammatory changes/or cathartic medication. Otherwise unremarkable CT scan of the chest, abdomen and pelvis with contrast. Electronically signed by: Michele Boone MD 10/25/2022 11:27. 23:37 ED course: CHEST: The lungs parenchyma demonstrate to be clear. No masses nodules are sp4 identified. Very minimal dependent infiltrate changes. The trachea mainstem bronchus demonstrate to be normal. There is no significant pleural and/or pericardial effusions. The heart is normal in size. The aorta and great vessels demonstrate to be unremarkable. The central pulmonary arteries demonstrate to be normal with no significant major filling defects. There is no significant mediastinal and/or hilar lymphadenopathy. The axillary regions demonstrate to be clear. The bone windows demonstrate no significant skeletal lesions. ABDOMEN AND PELVIS: The liver, pancreas, spleen and adrenal glands demonstrate to be unremarkable, no focal lesions are noted. The gallbladder demonstrated presence of multiple filling defects extending up to the level of the gallbladder neck corresponding to cholelithiasis. No definitive intrahepatic biliary duct dilatation could be seen. The kidneys demonstrate normal uptake of contrast media with no significant hydronephrosis. Grossly the unopacified stomach, small bowel and large bowel demonstrate to be within normal limits. There is no evidence for bowel dilatation and/or free air. The appendix is normal. There is minimal fatty position within the mucosa of the right site colon, nonspecific finding perhaps related to chronic inflammatory changes/or cathartic medication. The urinary bladder was partially distended with no gross abnormalities. The prostate gland is normal. The aorta demonstrate atherosclerotic disease. There is no retroperitoneal lymphadenopathy. There is no evidence for ascites/or abnormal fluid collections. The rest of the soft tissue and bony structures are within normal limits. IMPRESSION: Very minimal dependent infiltrate changes. Cholelithiasis. Minimal fatty position within the mucosa of the right site colon, nonspecific finding perhaps related to chronic inflammatory changes/or cathartic medication. Otherwise unremarkable CT scan of the chest, abdomen and pelvis with contrast. 23:37 Differential diagnosis: Nonspecific abd pain, gastritis, cholecystitis, pancreatitis, sp4 appendicitis, diverticulitis, viral gastroenteritis. Data reviewed: vital signs, nurses notes, lab test result(s), radiologic studies, CT scan. ED course: Lab work today is basically unremarkable. Patient has #1 cholelithiasis without cholecystitis, signs of mild colitis inflammatory/versus infective, also there is by description signs of acid reflux. Patient will be discharged with p.o. omeprazole, Levsin, Zofran, Lomotil. Advised to see electrical technician and general surgeon. We will advised to see general surgeon for cholelithiasis, and electrical technician for symptoms of GERD. 10/25 20:57 Order name: CBC with Diff; Complete Time: 23:04 sp4 10/25 20:57 Order name: CMP; Complete Time: 23:04 sp4 10/25 20:57 Order name: Lipase; Complete Time: 23:04 sp4 10/25 21:33 Order name: Urinalysis w/ reflexes EDMS 10/25 20:57 Order name: CT Chest, Abdomen, Pelvis - W/Contrast sp4 10/25 20:57 Order name: IV Saline Lock; Complete Time: 21:22 sp4 10/25 20:57 Order name: Labs collected and sent; Complete Time: 21:22 sp4 Administered Medications: 21:40 Drug: NS 0.9% IV 1000 ml Route: IV; Rate: 1 bolus; Site: left forearm; pf1 21:40 Drug: Famotidine IVP 40 mg Route: IVP; Site: left forearm; pf1 22:40 Follow up: Response: No adverse reaction fu 21:40 Drug: TORadol - Ketorolac IVP 30 mg Route: IVP; Site: left forearm; pf1 22:40 Follow up: Pain 0/10 Adult fu 21:40 Drug: Ondansetron IVP 8 mg Route: IVP; Site: left forearm; pf1 22:40 Follow up: Response: No adverse reaction fu 21:40 Drug: morphine IVP or IV 4 mg Route: IVP; Infused Over: 4 mins; Site: left forearm; pf1 22:10 Follow up: Pain 4/10 Adult fu Disposition Summary: 10/25/22 23:43 Discharge Ordered Location: Home sp4 Problem: new sp4 Symptoms: have improved sp4 Condition: Stable sp4 Diagnosis - Abdominal pain, Generalized sp4 - Acid reflux, acute gastroenteritis, nausea vomiting and diarrhea, GERD sp4 Followup: sp4 - With: Pato Meraz MD - When: 10 - 14 days - Reason: Recheck today's complaints Followup: sp4 - With: Pavan Purcell MD - When: 7 - 10 days - Reason: Recheck today's complaints Discharge Instructions: - Discharge Summary Sheet sp4 - Viral Gastroenteritis, Adult, [id number] sp4 Forms: - Patient Portal Instructions sp4 Prescriptions: - omeprazole 20 mg Oral tablet, delayed release (enteric coated) - take 1 tablet by ORAL route daily Take every day; 30 tablet; Refills: 0, sp4 Product Selection Permitted - ondansetron 4 mg Oral Tablet,disintegrating - take 1 tablet by ORAL route every 4 hours PRN nausea; 30 tablet; Refills: 0, sp4 Product Selection Permitted - Levsin 0.125 mg Oral Tablet - take 1 tablet by ORAL route every 8 hours; 30 tablet; Refills: 0, Product sp4 Selection Permitted - Lomotil 2.5-0.025 mg Oral Tablet - take 1 tablet by ORAL route every 6 hours As needed; 20 tablet; Refills: 0, sp4 Product Selection Permitted Signatures: Dispatcher [employer] EDMS Max Ko RN RN bp Finley, Pamala, RN RN pf1 Edmond Jacobs MD MD sp4 Scott Morelos RN Corrections: (The following items were deleted from the chart) 20:18 20:18 PMHx: Asthma; bp bp 21:05 20:57 Abdomen Pelvis W Con+CT.RAD.BRZ ordered. EDMS EDMS 21:46 20:57 Urinalysis+U.LAB.BRZ ordered. EDMS EDMS
[2022-10-26 00:47] VITALS: TEMP 98
[2022-10-26 01:02] VITALS: BP 113/88; O2SAT 96
--- NOTE | 2022-10-28 17:21 | RAD REPORT ---
EXAM DESCRIPTION: CT - Chest Abdomen Pelvis W Cont - 10/25/2022 11:06 pm CLINICAL HISTORY: 32 years, Male, abdominal pain ;Abdominal distention COMPARISON: None TECHNIQUE: Contrast-enhanced images of the chest, abdomen and pelvis were performed utilizing 5 mm s lice thickness at 5 mm interval reconstruction from the lung apices to the ischial tuberosities after the administration of IV contrast. In addition multiplanar reformats in the coronal and sagittal plane were obtained and reviewed. This exam was performed according to our departmental dose-optimization protocol, which includes auto mated exposure control, adjustment of the mA and/or kV according to patient size and/or use of iterat josafat reconstruction technique. CHEST: The lungs parenchyma demonstrate to be clear. No masses nodules are identified. Very minimal d ependent infiltrate changes. The trachea mainstem bronchus demonstrate to be normal. There is no significant pleural and/or perica rdial effusions. The heart is normal in size. The aorta and great vessels demonstrate to be unremarkable. The centra l pulmonary arteries demonstrate to be normal with no significant major filling defects. There is no significant mediastinal and/or hilar lymphadenopathy. The axillary regions demonstrate to be clear. The bone windows demonstrate no significant skeletal lesions. ABDOMEN AND PELVIS: The liver, pancreas, spleen and adrenal glands demonstrate to be unremarkable, no focal lesions are noted. The gallbladder demonstrated presence of multiple filling defects extending up to the level of the ga llbladder neck corresponding to cholelithiasis. No definitive intrahepatic biliary duct dilatation co uld be seen. The kidneys demonstrate normal uptake of contrast media with no significant hydronephrosis. Grossly the unopacified stomach, small bowel and large bowel demonstrate to be within normal limits. There is no evidence for bowel dilatation and/or free air. The appendix is normal. There is minimal fatty position within the mucosa of the right site colon, nonspecific finding perhaps related to chr onic inflammatory changes/or cathartic medication. The urinary bladder was partially distended with no gross abnormalities. The prostate gland is norm al. The aorta demonstrate atherosclerotic disease. There is no retroperitoneal lymphadenopathy. T here is no evidence for ascites/or abnormal fluid collections. The rest of the soft tissue and bony s tructures are within normal limits. IMPRESSION: Very minimal dependent infiltrate changes. Cholelithiasis. Minimal fatty position within the mucosa of the right site colon, nonspecific finding perhaps related to chronic inflammatory changes/or cathartic medication. Otherwise unremarkable CT scan of the chest, abdomen and pelvis with contrast. Electronically signed by: Michele Boone MD 10/25/2022 11:27 PM CDT Due to temporary technical issues with the PACS/Fluency reporting system, reports are being signed by the in house radiologists without review as a courtesy to insure prompt reporting. The interpreting radiologist is fully responsible for the content of the report.
== END 2022-10-26 00:36 | disposition home or self-care (01) ==
LOC: ER 20:06
DX: K21.9 Gastro-esophageal reflux disease without esophagitis (principal); K52.9 Noninfective gastroenteritis and colitis, unspecified; R11.2 Nausea with vomiting, unspecified
CPT/HCPCS: 85025; 36415; 81003; 83690; 80053; 71260; 74177; 96375; 96374; 99284; Q9967; J2405; J7030

== ENCOUNTER 2022-10-27 19:28 | Emergency (ER) | payer OTHER ==
--- OUTSIDE RECORDS SUMMARY | 2022-10-27 19:32 | XMS REPORT | Continuity of Care Document ---
:1990 Author Organization [facility] t Address [address] [place] [address] Care Team Providers Name Role Phone Blanks Radha PURVIS Primary Care Physician [phone] HONG REDDING Attending Clinician Unavailable Hong Redding MD Attending Clinician Doctor Unassigned, [place] Attending Clinician Unavailable AMISHA TORRES Attending Clinician [...] Effective Date Expiration Date Parminder WOODSON II [id number] 2020 00:00:00 Problems Condition Condition Condition Status [...] Active Univers ALLERGIE Class ity of S [facility] Social History Social Habit Start Date Stop Date Quantity Comments Source History SDMO University o f Alcohol Frequency [facility] History SDMO University o f Alcohol Std Drinks [facility] History [facility] o f Alcohol Binge [facility] History of tobacco Cigarette Smoker University of use [facility] Exposure to 2022-07-07 2022-07-17 Not sure University of SARS-CoV-2 (event) 00:00:00 07:43:00 [facility] Cigarettes smoked 2022-07-17 2022-07-17 Univers ity of current (pack per 00:00:00 00:00:00 [facility] ) - Reported Branch Tobacco use and 2022-07-17 2022-07-17 Smokeless Universit y of exposure 00:00:00 00:00:00 tobacco non-user [facility] Tobacco Comment 2022-07-17 2022-07-17 2 packs a week Unive rsity of 00:00:00 00:00:00 [facility] Alcohol Comment 2021-05-03 2021-05-03 6 beers a week Unive rsity of 00:00:00 00:00:00 [facility] Sex Ass[birth year] At [birth year] Universit y of 00:00:00 00:00:00 [facility] Smoking Status Start Date Stop Date Source Smokes tobacco daily 2022-07-17 00:00:00 Univers ity of [place] Medical Rule Medications Ordered Filled Start Stop Current Ordering Indication Dosage Frequency Signature Comments Components Source Medication Medication Date Date Medication? Clinician (SIG) Name Name ketorolac 2022- No 30mg 30 mg, Unive rs (TORADOL) 06-09- Slow IV ity of injection 19:00: 18:07 Push, [place] 30 mg 00 :00 ONCE, 1 Medical dose, On Branch 06/09/22 at 1400, WILI naproxen Yes [id number] 500mg Take 1 Un kayla (NAPROSYN) 3-20 tablet by ity of 500 mg 00:00: mouth in [place] tablet 00 the Medical morning Branch and 1 tablet in the evening. Take with meals. naproxen Yes [id number] 500mg Take 1 Un kayla (NAPROSYN) 3-20 tablet by ity of 500 mg 00:00: mouth in [place] tablet 00 the Medical morning Branch and 1 tablet in the evening. Take with meals. naproxen Yes [id number] 500mg Take 1 Un kayla (NAPROSYN) 3-20 tablet by ity of 500 mg 00:00: mouth in [place] tablet 00 the Medical morning Branch and 1 tablet in the evening. Take with meals. naproxen Yes [id number] 500mg Take 1 Un kayla (NAPROSYN) 3-20 [...] anch mg at 2215, WILI methylPREDN Yes [id number] Take by Univers ISolone 4 11-22 mouth ity of mg tablets 00:00: [place]INSTRU [place] 00 CTIONS. Medical follow Branch package directions hydrOXYzine Yes [id number] 25mg Take 1 Univers 25 mg 11-22 capsule by ity of capsule 00:00: mouth 3 [place] 00 (three) Medical times Branch daily as needed for Itching. methylPREDN 2022-0 Yes [id number] Take by Univers ISolone 4 9-02 mouth ity of mg tablets 00:00: [place] CTIONS. Medical follow Branch package directions hydrOXYzine 2-0 Yes [id number] 25mg Take 1 Univers 25 mg 9-02 capsule by ity of capsule 00:00: mouth 3 (three) Medical times Branch daily as needed for Itching. methylPREDN 2-0 Yes [id number] Take by Univers ISolone 4 9-02 mouth ity of mg tablets 00:00: [place]-INSTRU [place] 00 CTIONS. Medical follow Branch package directions hydrOXYzine 2-0 Yes [id number] 25mg Take 1 Univers 25 mg 9-02 capsule by ity of capsule 00:00: mouth 3 (three) Medical times Branch daily as needed for Itching. methylPREDN 2-0 Yes [id number] Take by Univers ISolone 4 9-02 mouth ity of mg tablets 00:00: [place]INSTRU [place] 00 CTIONS. Medical follow Branch package directions hydrOXYzine 2021-0 Yes [id number] 25mg Take 1 Univers 25 mg 9-02 capsule by ity of capsule 00:00: mouth 3 (three) Medical times Branch daily as needed for Itching. methylPREDN 2-0 Yes [id number] Take by Univers ISolone 4 9-02 mouth ity of mg tablets 00:00: [place]STRU [place] 00 CTIONS. Medical follow Branch package directions hydrOXYzine 2-0 Yes [id number] 25mg Take 1 Univers 25 mg 9-02 capsule by ity of capsule 00:00: mouth 3 (three) Medical times Branch daily as needed for Itching. ubrogepant 2022-0 Yes [id number] 100mg Take 100 Univers (UBRELVY) 4-14 mg by ity of 100 mg Tab 00:00: mouth as [place] as 00 needed for Medical Pain Branch (scale 4-6) or Pain (scale 7-10). verapamiL 2022-0 Yes [id number] 120mg Take 1 U nivers 120 mg 24 4-14 capsule by ity of hr capsule 00:00: mouth at [place] as 00 bedtime. Medical Branch ubrogepant 0 Yes [id number] 100mg Take 100 Univers (UBRELVY) 4-14 mg by ity of 100 mg Tab 00:00: mouth as [place] 00 needed for Medical Pain Branch (scale 4-6) or Pain (scale 7-10). verapamiL 0 Yes [id number] 120mg Take 1 U nivers 120 mg 24 4-14 capsule by ity of hr capsule 00:00: mouth at [place] as 00 bedtime. Medical Branch ubrogepant Yes [id number] 100mg Take 100 Univers (UBRELVY) 4-14 mg by ity of 100 mg Tab 00:00: mouth as [place] 00 needed for Medical Pain Branch (scale 4-6) or Pain (scale 7-10). verapamiL 0 Yes [id number] 120mg Take 1 U nivers 120 mg 24 4-14 capsule by ity of hr capsule 00:00: mouth at [place] 00 bedtime. Medical Branch ubrogepant Yes [id number] 100mg Take 100 Univers (UBRELVY) 4-14 mg by ity of 100 mg Tab 00:00: mouth as [place] 00 needed for Medical Pain Branch (scale 4-6) or Pain (scale 7-10). verapamiL 0 Yes [id number] 120mg Take 1 U nivers 120 mg 24 4-14 capsule by ity of hr capsule 00:00: mouth at [place] 00 bedtime. Medical Branch ubrogepant Yes [id number] 100mg Take 100 Univers (UBRELVY) 4-14 mg by ity of 100 mg Tab 00:00: mouth as [place] 00 needed for Medical Pain Branch (scale 4-6) or Pain (scale 7-10). verapamiL 0 Yes [id number] 120mg Take 1 U nivers 120 mg 24 4-14 capsule by ity of hr capsule 00:00: mouth at [place] 00 bedtime. Medical Branch ubrogepant 0 Yes [id number] 100mg Take 100 Univers (UBRELVY) 4-14 mg by ity of 100 mg Tab 00:00: mouth as [place] 00 needed for Medical Pain Branch (scale 4-6) or Pain (scale 7-10). ubrogepant 2022-0 Yes [id number] 100mg Take 100 Univers (UBRELVY) 4-14 mg by ity of 100 mg Tab 00:00: mouth as [place] 00 needed for Medical Pain Branch (scale 4-6) or Pain (scale 7-10). verapamiL 2022- No [id number] 120mg Take 1 Univers 120 mg 24 4-14 04-27 capsule by ity of hr capsule 00:00: 00:00 [place] :00 bedtime. Medical Branch verapamiL 2022- No [id number] 120mg Take 1 Univers 120 mg 24 [...] MEN'S Branch COMPLETE ORAL) proMETHazin 2021-0 Yes [id number] 12.5mg Take 1 Univers e 12.5 mg 2-11 tablet by ity o f tablet 00:00: mouth [place] 00 every 4 Medical (four) Branch hours as needed for N/V unresponsi ve to Ondansetro n or N/V alternatin g with Ondansetro n. cyclobenzap 2021-0 Yes [id number] 10mg Take 1 Univers rine 10 mg 2-11 tablet by ity of tablet 00:00: mouth 3 [place] 00 (three) Medical times Branch daily. cetirizine 2021-0 Yes [id number] 10mg Take 1 Univers 10 mg 2-11 tablet by ity of tablet 00:00: mouth [place] 00 daily. Medical Branch proMETHazin 2021-0 Yes [id number] 12.5mg Take 1 Univers e 12.5 mg 2-11 tablet by ity o f tablet 00:00: mouth [place] 00 every 4 Medical (four) Branch hours as needed for N/V unresponsi ve to Ondansetro n or N/V alternatin g with Ondansetro n. cyclobenzap 2021-0 Yes [id number] 10mg Take 1 Univers rine 10 mg 2-11 tablet by ity of tablet 00:00: mouth 3 [place] 00 (three) Medical times Branch daily. cetirizine 2021-0 Yes [id number] 10mg Take 1 Univers 10 mg 2-11 tablet by ity of tablet 00:00: mouth [place] 00 daily. Medical Branch proMETHazin 2021-0 Yes [id number] 12.5mg Take 1 Univers e 12.5 mg 2-11 tablet by ity o f tablet 00:00: mouth [place] 00 every 4 Medical (four) Branch hours as needed for N/V unresponsi ve to Ondansetro n or N/V alternatin g with Ondansetro n. cyclobenzap 2021-0 Yes [id number] 10mg Take 1 Univers rine 10 mg 2-11 tablet by ity of tablet 00:00: mouth 3 [place] 00 (three) Medical times Branch daily. cetirizine 2021-0 Yes [id number] 10mg Take 1 Univers 10 mg 2-11 tablet by ity of tablet 00:00: mouth [place] 00 daily. Medical Branch proMETHazin 2021-0 Yes [id number] 12.5mg Take 1 Univers e 12.5 mg 2-11 tablet by ity o f tablet 00:00: mouth [place] 00 every 4 Medical (four) Branch hours as needed for N/V unresponsi ve to Ondansetro n or N/V alternatin g with Ondansetro n. cyclobenzap 2021-0 Yes [id number] 10mg Take 1 Univers rine 10 mg 2-11 tablet by ity of tablet 00:00: mouth 3 [place] 00 (three) Medical times Branch daily. cetirizine 2021-0 Yes [id number] 10mg Take 1 Univers 10 mg 2-11 tablet by ity of tablet 00:00: mouth [place] 00 daily. Medical Branch proMETHazin 2021-0 Yes [id number] 12.5mg Take 1 Univers e 12.5 mg 2-11 tablet by ity o f tablet 00:00: mouth [place] 00 every 4 Medical (four) Branch hours as needed for N/V unresponsi ve to Ondansetro n or N/V alternatin g with Ondansetro n. cyclobenzap 2021-0 Yes [id number] 10mg Take 1 Univers rine 10 mg 2-11 tablet by ity of tablet 00:00: mouth 3 [place] 00 (three) Medical times Branch daily. cetirizine 2021-0 Yes [id number] 10mg Take 1 Univers 10 mg 2-11 tablet by ity of tablet 00:00: mouth [place] 00 daily. Medical Branch proMETHazin 2021-0 Yes [id number] 12.5mg Take 1 Univers e 12.5 mg 2-11 tablet by ity o f tablet 00:00: mouth [place] 00 every 4 Medical (four) Branch hours as needed for N/V unresponsi ve to Ondansetro n or N/V alternatin g with Ondansetro n. cyclobenzap 2021-0 Yes [id number] 10mg Take 1 Univers rine 10 mg 2-11 tablet by ity of tablet 00:00: mouth 3 [place] 00 (three) Medical times Branch daily. cetirizine 2021-0 Yes [id number] 10mg Take 1 Univers 10 mg 2-11 tablet by ity of tablet 00:00: mouth 00 daily. Medical Branch proMETHazin Yes [id number] 12.5mg Take 1 Univers e 12.5 mg 2-11 tablet by ity o f tablet 00:00: mouth 00 every 4 Medical (four) Branch hours as needed for N/V unresponsi ve to Ondansetro n or N/V alternatin g with Ondansetro n. cyclobenzap Yes [id number] 10mg Take 1 Univers rine 10 mg 2-11 tablet by ity of tablet 00:00: mouth 3 00 (three) Medical times Branch daily. cetirizine Yes [id number] 10mg Take 1 Univers 10 mg 2-11 tablet by ity of tablet 00:00: mouth 00 daily. Medical Branch Vital Signs Vital Name Observation Time Observation Value Comments Source Systolic blood 2022-07-17 13:06:00 120 mm[Hg] Univer sity [facility] Diastolic blood 2022-07-17 13:06:00 76 mm[Hg] Unive rsity [facility] Heart rate 2022-07-17 13:06:00 78 /min [facility] Body temperature 2022-07-17 13:06:00 36.39 Renetta [facility] Body height 2022-07-17 13:06:[address] [facility] Body weight 2022-07-17 13:06:[address] [facility] BMI 2022-07-17 13:06:00 35.98 kg/m2 [facility] Oxygen saturation in 2022-07-17 13:06:00 99 /min [facility] Arterial blood by [facility] Pulse oximetry Branch Systolic blood 2022-06-09 19:00:00 112 mm[Hg] Univer sity of [facility] Diastolic blood 2022-06-09 19:00:00 72 mm[Hg] Unive rsity [facility] Heart rate 2022-06-09 19:00:00 61 /min [facility] Respiratory rate 2022-06-09 19:00:00 15 /min [facility] Oxygen saturation in 2022-06-09 19:00:00 97 /min [place] of Arterial blood by [facility] Pulse oximetry Branch Body temperature 2022-06-09 16:00:00 36 Renetta [facility] Body weight 2022-06-09 16:00:[address] [facility] BMI 2022-06-09 16:00:00 35.01 kg/m2 [facility] Systolic blood 2021-11-23 02:00:00 114 mm[facility]Hg] [facility] 2021-11-23 02:00:00 68 mm[Hg] [facility] Heart rate 2021-11-23 02:00:00 67 /min [facility] Respiratory rate 2021-11-23 02:00:00 16 /min [facility] Oxygen saturation in 2021-11-23 02:00:00 97 /min University Arterial blood by [facility] Pulse oximetry Branch Body temperature 2021-11-23 01:46:00 36.06 Ren[facility] Body height 2021-11-23 01:46:[address] [facility] Body weight 2021-11-23 01:46:[address] [facility] BMI 2021-11-23 01:46:00 35.04 kg/m2 [facility] Procedures Procedure Date / Time Performing Clinician Source Performed ASSIGNMENT OF BENEFITS 2022-07-17 12:45:16 Doctor Unassigned, [facility] XR CHEST 1 VW 2022-06-09 16:54:00 Amisha Torres [facility] TROPONIN I 2022-06-09 16:37:00 Amisha Torres [facility] COMP. METABOLIC PANEL 2022-06-09 16:37:00 Amisha Torres [facility] ([id number]) [facility] CBC WITH DIFF 2022-06-09 16:37:00 Amisha Torres [facility] CONSENT/REFUSAL FOR 2022-06-09 16:01:44 Doctor Unasscasey, [facility] DIAGNOSIS AND TREATMENT [place] [facility] CONSENT/REFUSAL FOR 2022-06-09 15:57:30 Doctor [facility]la [facility] DIAGNOSIS AND TREATMENT [place] Medical Rule NOTICE OF PRIVACY 2021-11-23 01:27:11 Doctor Mikayla [facility] PRACTICES [place] [facility] CONSENT/REFUSAL FOR 2021-11-23 01:25:[address] [facility] DIAGNOSIS AND TREATMENT [place] Medical Rule MEDICATION CORRESPONDENCE 2021-07-12 05:01:00 Doctor Mikayla [facility] [place] Medical Rule Encounters Start End Encounter Admission Attending Care Care Encounter Source Date/Time Date/Time Type Type Clinicians Facility Department ID 2022-07-17 2022-07-17 Outpatient R MILADIS [facility] [id number] Univers 08:00:00 08:26:17 [facility] ity o f [facility] 2022-07-17 2022-07-17 Office Miladis [facility] [id number] Univers 08:00:00 08:26:17 Visit [facility] 350.1.13.10 i ty [place] [phone] [facility] 059 Branch OFFICE BUILDING 2022-07-17 2022-07-17 Orders Doctor SALMERON [id number] [id number] Univers 00:00:00 00:00:00 Only Unassigned, SHAW[place] 350.1.13.10 ity of [place] [facility] 4.2.7.2.686 Cedric as [id number] [facility] 009 Branch 2022-06-09 2022-06-09 Emergency X BRIAN [facility] ERT [id number] Univers 11:02:00 14:25:00 AMISHA ity of [facility] 2022-06-09 2022-06-09 [facility] [id number] Univers 11:02:00 14:25:00 Amisha [place] 350.1.13.10 i ty of [place] 4[place]2.[place] [phone] [facility] 084 Branch 2022-01-23 2022-01-23 [facility] [id number] Univers 09:00:00 09:00:00 CHRISTIANO itlin [facility] 2021-11-22 2021-11-22 Emergency [facility] [id number] Univers 20:49:00 22:38:00 Princess MORALES 350.1.13.10 i ty of [place] 4[place].7.2.[place] [phone] [address] 2021-11-22 2021-11-22 Emergency [facility] ERT [id number] Univers 20:49:00 22:38:00 PRINCESS rousseau [facility] 2021-07-12 2021-07-12 Orders Doctor FAVIOLA 1.2.840.114 [id number] Univers 00:00:00 00:00:00 Only Unassigned, [place] 350.1.13.10 ity of [place] [facility] 4.2.7.2.686 Cedric as [phone] [address] 2021-07-04 2021-07-04 [facility] 1.2.840.114 [id number] Univers 13:00:00 13:00:00 Visit PhoRent 350.1.13.10 it y [place] [phone] [address] OFFICE BUILDING 2021-07-04 2021-07-04 Outpatient R DEDRA [facility] [id number] Univers 13:00:00 12:59:08 KETURAHESPINOZA itlin [facility] 2021-07-04 2021-07-04 Telephone [facility] [id number] Univers 00:00:00 00:00:00 Lycia HEALTH 350.1.13.10 it y [place] [id number] [address] OFFICE BUILDING 2021-07-04 2021-07-04 Telephone [facility] [id number] Univers 00:00:00 00:00:00 Lycia HEALTH 350.1.13.10 it y of [place] [id number] [address] OFFICE [facility] 2021-07-04 2021-07-04 Telephone [facility] [id number] Univers 00:00:00 00:00:00 [facility] 350.1.13.10 it y [place] [id number] [address] OFFICE [facility] 2021-05-03 2021-05-03 Out[facility] [id number] Univers 11:00:00 11:48:33 LYCESPINOZA ity [facility] 2021-05-03 2021-05-03 Office [facility] 1.2.840.114 [id number] Univers 11:00:00 11:48:33 Visit [facility] 350.1.13.10 it y [place] [id number] [address] OFFICE [facility] 2021-04-14 2021-04-15 Emergency [facility] [id number] Univers 18:26:00 00:02:00 AFUA rousseau [facility] 2021-04-14 2021-04-15 Emergency [facility] [id number] Univers 18:26:00 00:02:00 Afua MORALES 350.1.13.10 ity of [place] 4.2.7.2.686 [facility] [id number] [address] 2021-03-24 2021-03-24 Emergency Wil [facility]RT [id number] Univers 19:36:00 20:05:00 MEGAN rousseau [facility] 2021-03-24 2021-03-24 Emergency [facility] [id number] [id number] Univers 19:36:00 20:05:00 Megan MORALES 350.1.13.10 ity [facility] 4.2.7.2.686 [facility] [id number] [address] 2020-11-11 2020-11-11 Letter FAVIOLA Pimentel 1.2.840.114 [id number] Univers 00:00:00 00:00:00 (Out) Isabel Cifuentes [place] 350.1.13.10 it y of HOSPITAL 4.2.7.2.686 [place]ed[place] as [phone] [address] 2020-11-10 2020-11-10 Outpatient R UNKNOWN, [facility] [id number] Univers 11:00:00 11:00:00 ATTENDING ity of [facility] 2020-11-06 2020-11-06 Tono Fry [facility] 1.2.840.114 [id number] Univers 00:00:00 00:00:00 (Out) [facility] Health 350.1.13.10 i ty of [place] 4.2.7.2.686 Cedric as Professio [phone] [address] Office Building One 2020-10-31 2020-10-31 Laboratory Lab, Adc Fam Pob I [facility] 1.2. [id number] [id number] Univers 17:22:56 19:08:45 Only [facility] 350.1.13.10 ity of [place] 4.2.7.2.686 Cedric as Professio [id number] [address] Office [facility] 2020-10-31 2020-10-31 Outpatient R LATRICE [facility] [id number] Univers 17:00:00 17:00:00 GRACE rousseau o f [facility] 2020-10-31 2020-10-31 Letter Doctor SALMERON 1.2.840.114 [id number] Univers 00:00:00 00:00:00 (Out) Unassigned, [place] 350.1.13.10 ity of [place] [facility] 4.2.7.2.686 Cedric as [id number] [address] 2020-10-31 2020-10-31 Letter Doctor SALMERON 1.2.840.114 [id number] Univers 00:00:00 00:00:00 (Out) Unassigned, [place] 350.1.13.10 ity of [place] [facility] 4.2.7.2.686 Cedric as [id number] [address] 2020-10-31 2020-10-31 Letter Doctor FAVIOLA 1.2.840.114 [id number] Univers 00:00:00 00:00:00 (Out) UnassignedSHAWN 350.1.13.10 ity of [place] [facility] 4.2.7.2.686 Cedric as [phone] [address] 2020-10-31 2020-10-31 Letter Doctor FAVIOLA 1.2.840.114 [id number] Univers 00:00:00 00:00:00 (Out) UnassignedSHAWN 350.1.13.10 ity of [place] [facility] 4.2.7.2.686 Cedric as [id number] [address] Results Test Description Test Time Test Comments Results Result Comments Source TROPONIN I 2022-06-09 17:25:59 Test Item Value Reference Range Interpretation Comme nts TROPONIN I (test code = 3196265437) 0.002 ng/mL <=0.034 ZAKIA (test code = [...] biotin. Lab Interpretation (test code = Normal 83310-1) [facility][id number][facility]2022-06-09 17:16:40 Test Item Value Reference Range Interpretation Comments NA (test code = 139 mmol/L 135-145 2597926869) K (test code = 4.4 mmol/L 3.5-5.0 8310219170) CL (test code = 105 mmol/L 98-108 9358171141) CO2 TOTAL (test code 23 mmol/L 23-31 = 1992255373) AGAP (test code = 11 2-16 9097443405) BUN (test code = 13 mg/dL 7-23 0938205573) GLUCOSE (test code = 95 mg/dL 70-110 9636177957) CREATININE (test code 0.84 mg/dL 0.60-1.25 = 6132409051) TOTAL BILI (test code 0.7 mg/dL 0.1-1.1 = 0412735475) CALCIUM (test code = 9.1 mg/dL 8.6-10.6 7102323401) T PROTEIN (test code 7.3 g/dL 6.3-8.2 = 2271686663) ALBUMIN (test code = 4.5 g/dL 3.5-5.0 1564104499) ALK PHOS (test code = 62 U/L 34-122 4716103847) ALTv (test code = 20 U/L 5-50 2-6) AST(SGOT) (test code 20 U/L 13-40 = 9213308818) eGFR (test code = 107.3 mL/min/1.73m2 3713014108) ZAKIA (test code = ZAKIA) Association of [...] tests). [facility] WITH [id number] 17:03:58 Test Item Value Reference Range Interpretation [...] (test code = 35.5 fL 38.5-51.6 L 09833-5) RDW-CV (test code = 11.9 % 12.1-15.4 L 788-0) PLT (test code = 194 See_Comment [Automated 777-3) message] The sy stem which generated this result transmitted reference range : 150 - 328 10*3/ ?L. The reference r chip was not used to interpret this result as normal/abnormal . MPV (test code = 10.9 fL 9.8-13.0 76859-7) NRBC/100 WBC (test 0.0 See_Comment [Automat ed code = 9054785213) message] The system which generated this result transmitted reference range : 0.0 - 10.0 /100 WBCs. The refer ence range was not u sed to interpret th is result as normal/abnormal . NRBC x10^3 (test code See_Comment [Auto mated = 0934272317) message] The s ystem which generated this result transmitted reference range : 10*3/?L. The reference range was not used to interpret this result as normal/abnormal . GRAN MAT (NEUT) % 69.6 % (test code = 770-8) IMM GRAN % (test code 0.30 % = 9576959631) LYMPH % (test code = 20.4 % 736-9) MONO % (test code = 6.9 % 5905-5) EOS % (test code = 2.4 % 713-8) BASO % (test code = 0.4 % 706-2) GRAN MAT x10^3(ANC) 6.74 10*3/uL 1.99-6.95 (test code = 7316473077) IMM GRAN x10^3 (test 0.03 10*3/uL 0.00-0.06 code = 0942154577) LYMPH x10^3 (test code 1.97 10*3/uL 1.09-3.23 = 731-0) MONO x10^3 (test code 0.67 10*3/uL 0.36-1.02 = 742-7) EOS x10^3 (test code = 0.23 10*3/uL 0.06-0.53 711-2) BASO x10^3 (test code 0.04 10*3/uL 0.01-0.09 = 704-7) Lab Interpretation Abnormal (test code = 61347-8) [facility]"
[2022-10-27 20:55] LABS: Specific Gravity 1.022 (1.005-1.030); Urine Bilirubin NEGATIVE (Negative); Urine Blood Negative (Negative); Urine Clarity Clear (Clear); Urine Color Light-Yellow (Yellow); Urine Glucose NEGATIVE (Negative); Urine Protein NEGATIVE (Negative); Urine Urobilinogen Normal (Normal); Urine pH 5.5 (5.0-7.0)
[2022-10-27 21:04] LABS: Absolute Lymphocytes (CBC) 2.6 K/uL (0.7-4.9); Hematocrit 40.8 % (39.6-49.0); Lymphocytes % 29.3 % (15.3-44.8); MCV 83.3 fL (80-100); MPV 8.9 fL (7.6-11.3); Platelets 194 thou/uL (152-406); RBC Red Blood Cell Count 4.89 M/uL (4.33-5.43)
[2022-10-27] MEDS ORDERED: NA CHLORIDE 0.9% 1,000 ML ONE (21:12)
[2022-10-27] MEDS ORDERED: ONDANSETRON 4 MG/2 ML VIAL ONE (21:12)
[2022-10-27] MEDS ORDERED: PANTOPRAZOLE 40 MG INJ ONE (21:12)
[2022-10-27] MEDS ORDERED: HYDROMORPHONE HCL 1 MG/ML INJ ONE (21:12)
[2022-10-27 21:24] LABS: Albumin 4.1 g/dL (3.4-5.0); Bilirubin Total 0.8 mg/dL (0.2-1.0); Potassium 3.7 mEq/L (3.5-5.1); Protein, Total 7.6 g/dL (6.4-8.2)
--- NOTE | 2022-10-27 21:52 | RAD REPORT ---
EXAM DESCRIPTION: US - Abdomen Exam Limited - 10/27/2022 9:22 pm CLINICAL HISTORY: Abdominal pain. COMPARISON: None. FINDINGS: Multiple gallstones. Gallbladder wall not thickened The biliary tree is normal caliber. IMPRESSION: Cholelithiasis without evidence cholecystitis
--- NOTE | 2022-10-27 22:28 | RAD REPORT ---
EXAM DESCRIPTION: Nazario Single View10/27/2022 10:18 pm CLINICAL HISTORY: Abdominal pain COMPARISON: 2015 FINDINGS: The lungs appear clear of acute infiltrate. The heart is normal size IMPRESSION: No acute abnormalities displayed
[2022-10-27] MEDS ORDERED: MAGNES/ALUMIN/SIMET 30ML UCUP ONE (22:43)
--- NOTE | 2022-10-27 23:02 | EDPHYS ---
Physician Documentation [facility] Name: Jem Garnica Jr Age: 32 yrs Sex: Male : 1990 Arrival Date: 10/27/2022 Time: 19:28 Bed 14 Private MD: ED Physician Jonah Gupta HPI: 10/27 19:45 This 32 yrs old Black Male presents to ER via Ambulatory with complaints of Abdominal cp Pain, Back Pain, gallstones. 19:45 The patient presents with abdominal pain in the right upper quadrant. Onset: The cp symptoms/episode began/occurred today. The symptoms radiate to right back. Associated signs and symptoms: Pertinent positives: nausea. 19:45 The symptoms are described as constant. cp 19:45 Severity of pain: in the emergency department the pain is unchanged despite home cp interventions. The patient has been recently seen at the [facility] Emergency Department, 2 days ago, diagnosed with gallstones and told to f/u with general surgery. Historical: - Allergies: 19:39 No Known Allergies; pf1 - PMHx: 19:39 gallstones; pf1 - PSHx: 19:39 None; pf1 - Immunization history:: Adult Immunizations up to date, Client reports having NOT received the Covid vaccine. Last tetanus immunization: < 5 years ago Flu vaccine is up to date. - Social history:: Smoking status: Patient reports the use of cigarette tobacco products, smokes one-half pack cigarettes per day, Patient/guardian denies using alcohol, street drugs. ROS: 19:50 Constitutional: Negative for body aches, chills, fever, poor PO intake. cp 19:50 Respiratory: Negative for cough, shortness of breath, wheezing. cp 19:50 Abdomen/GI: Positive for abdominal pain, nausea, diarrhea, of the right upper quadrant, Negative for constipation, active vomiting. 19:50 Eyes: Negative for injury, pain, redness, and discharge. cp 19:50 ENT: Negative for drainage from ear(s), ear pain, sore throat, difficulty swallowing, difficulty handling secretions. 19:50 Cardiovascular: Negative for chest pain, edema, palpitations. 19:50 Back: Positive for radiated pain. cp 19:50 : Negative for urinary symptoms, hematuria. 19:50 Neuro: Negative for altered mental status, headache, weakness. 19:50 All other systems are negative. Exam: 19:55 Constitutional: The patient appears in no acute distress, alert, awake, cp non-diaphoretic, non-toxic, well developed, well nourished, in obvious pain, uncomfortable. 19:55 Head/Face: Normocephalic, atraumatic. cp 19:55 Eyes: Periorbital structures: appear normal, Conjunctiva: normal, no exudate, no injection, Sclera: no appreciated abnormality, Lids and lashes: appear normal, bilaterally. 19:55 ENT: External ear(s): are unremarkable, Nose: is normal, Mouth: Lips: moist, Oral mucosa: pink and intact, moist, Posterior pharynx: is normal, airway is patent, no erythema, no exudate. 19:55 Chest/axilla: Inspection: normal, Palpation: is normal, no crepitus, no tenderness. 19:55 Cardiovascular: Rate: normal, Rhythm: regular. 19:55 Respiratory: the patient does not display signs of respiratory distress, Respirations: normal, no use of accessory muscles, no retractions, labored breathing, is not present, Breath sounds: are clear throughout, no decreased breath sounds, no stridor, no wheezing. 19:55 Abdomen/GI: Inspection: abdomen appears normal, Bowel sounds: active, all quadrants, Palpation: soft, in all quadrants, severe abdominal tenderness, in the right upper quadrant, rebound tenderness, is not appreciated, involuntary guarding, is not appreciated. 19:55 Back: pain, that is moderate, of the right mid back, ROM is normal. 19:55 Skin: cellulitis, is not appreciated, no rash present. Vital Signs: 19:34 BP 135 / 100; Pulse 73; Resp 18; Temp 98.2; Pulse Ox 100% on R/A; Weight 113.4 kg; pf1 Height 5 ft. 10 in. ; Pain 10/10; 21:11 BP 146 / 96; Pulse 58; Resp 18; Pulse Ox 97% ; vc1 22:26 BP 121 / 73; Pulse 68; Resp 18; Pulse Ox 99% ; vc1 19:34 Body Mass Index 35.87 (113.40 kg, 177.8 cm) pf1 19:34 Pain Scale: Adult pf1 MDM: 19:41 Patient medically screened. cp 21:00 Differential diagnosis: bowel obstruction, cholecystitis, Cholelithiasis, pancreatitis, cp Peptic Ulcer Disease, Perf. Duodenal Ulcer, Perf. Gastric Ulcer, Pyelonephritis, Ureterolithiasis, urinary tract infection. 23:01 Data reviewed: vital signs, nurses notes, lab test result(s), radiologic studies, CT cp scan, plain films. 23:01 I considered the following discharge prescriptions or medication management in the emergency department Medications were administered in the Emergency Department. See MAR. 23:01 Counseling: I had a detailed discussion with the patient and/or guardian regarding: the historical points, exam findings, and any diagnostic results supporting the discharge/admit diagnosis, lab results, radiology results, the need for outpatient follow up, for definitive care, a general surgeon. Response to treatment: the patient's symptoms have markedly improved after treatment. Special discussion: Based on the patient's Hx, exam, and Dx evaluation, there is no indication for emergent surgery or inpatient Tx. It is understood by the patient/guardian that if the Sx's persist or worsen they need to return immediately for re-evaluation. 10/27 19:38 Order name: CBC with Diff; Complete Time: 21:26 10/27 21:26 Interpretation: Reviewed. 10/27 19:38 Order name: CMP; Complete Time: 21:26 10/27 21:26 Interpretation: Normal except: ALT 127. 08 19:38 Order name: Lipase; Complete Time: 21:26 10/27 22:00 Interpretation: Reviewed. 10/27 19:38 Order name: Urinalysis w/ reflexes; Complete Time: 21:26 10/27 22:00 Interpretation: Reviewed. 10/27 20:56 Order name: US Abdomen Limited; Complete Time: 21:59 10/27 21:59 Interpretation: Report reviewed. 10/27 21:26 Order name: XRAY Chest (1 view) 10/27 19:38 Order name: IV Saline Lock; Complete Time: 20:52 10/27 19:38 Order name: Labs collected and sent; Complete Time: 20:52 10/27 20:56 Order name: NPO; Complete Time: 20:57 cp Administered Medications: 21:10 Drug: NS 0.9% IV 1000 ml Route: IV; Rate: 1 bolus; Site: left hand; vc1 21:11 Drug: HYDROmorphone IVP 1 mg Route: IVP; Site: left hand; vc1 22:45 Follow up: Response: No adverse reaction; Marked relief of symptoms; Pain is decreased vc1 21:11 Drug: Ondansetron IVP 4 mg Route: IVP; Site: left hand; vc1 22:46 Follow up: Response: No adverse reaction; Marked relief of symptoms vc1 21:11 Drug: Pantoprazole IVP 40 mg Route: IVP; Site: left hand; vc1 22:46 Follow up: Response: No adverse reaction; Marked relief of symptoms vc1 22:44 Drug: GI Cocktail without - (Maalox PO Suspension 30 ml, Lidocaine Mucous vc1 Membrane Liquid 2 % 15 ml) {Note: administered without the viscous lidocaine because it is not available, provider aware .} Route: PO; 22:45 Follow up: Response: No adverse reaction; Marked relief of symptoms vc1 Disposition Summary: 10/27/22 23:02 Discharge Ordered Location: Home cp Problem: an ongoing problem cp Symptoms: have improved cp Condition: Stable cp Diagnosis - Other cholelithiasis without obstruction cp Followup: cp - With: Edwin Goldstein MD - When: 2 - 3 days - Reason: Recheck today's complaints Discharge Instructions: - Discharge Summary Sheet cp - Cholelithiasis cp Forms: - Medication Reconciliation Form cp - Thank You Letter cp - Antibiotic Education cp - Prescription Opioid Use cp - Patient Portal Instructions cp Prescriptions: - promethazine 25 mg Oral Tablet - take 1 tablet by ORAL route every 6 hours As needed; 20 tablet; Refills: 0, cp Product Selection Permitted - dicyclomine 20 mg Oral Tablet - take 1 tablet by ORAL route 4 times per day; 30 tablet; Refills: 0, Product cp Selection Permitted Signatures: Dispatcher [employer] EDAndrez Morataya PA PA cp Calcote, Vanessa RN RN vc1 Elma Frey RN RN pf1
--- NOTE | 2022-10-27 23:02 | ER ---
Nurse's Notes [facility] Name: Jem Garnica Jr Age: 32 yrs Sex: Male : 1990 Arrival Date: 10/27/2022 Time: 19:28 Bed 14 Private MD: Diagnosis: Other cholelithiasis without obstruction Presentation: 10/27 19:34 Chief complaint: Patient states: abdominal pain of 10, worse since this AM, onset 2 pf1 days with diarrhea. Patient stated ws diagnosed with gallstones on Thursday here. Coronavirus screen: Vaccine status: Patient reports being unvaccinated. Client denies travel out of the [place] in the last 14 days. At this time, the client does not indicate any symptoms associated with coronavirus-19. Ebola Screen: Patient negative for fever greater than or equal to 101.5 degrees Fahrenheit, and additional compatible Ebola Virus Disease symptoms. Initial Sepsis Screen: Does the patient meet any 2 criteria? No. Patient's initial sepsis screen is negative. Does the patient have a suspected source of infection? No. Patient's initial sepsis screen is negative. Risk Assessment: Do you want to hurt yourself or someone else? Patient reports no desire to harm self or others. 19:34 Method Of Arrival: Ambulatory pf1 19:34 Acuity: CHACORTA 3 pf1 21:00 Onset of symptoms is unknown. Mechanism of Injury: No Mechanism of Injury. Transition vc1 of care: patient was not received from another setting of care. Historical: - Allergies: 19:39 No Known Allergies; pf1 - PMHx: 19:39 gallstones; pf1 - PSHx: 19:39 None; pf1 - Immunization history:: Adult Immunizations up to date, Client reports having NOT received the Covid vaccine. Last tetanus immunization: < 5 years ago Flu vaccine is up to date. - Social history:: Smoking status: Patient reports the use of cigarette tobacco products, smokes one-half pack cigarettes per day, Patient/guardian denies using alcohol, street drugs. Screenin:00 [facility] ED Fall Risk Assessment (Adult) History of falling in the last 3 months, vc1 including since admission No falls in past 3 months (0 pts) Confusion or Disorientation No (0 pts) Intoxicated or Sedated No (0 pts) Impaired Gait No (0 pts) Mobility Assist Device Used No (0 pt) Altered Elimination No (0 pt) Score/Fall Risk Level 0 - 2 = Low Risk Oriented to surroundings, Maintained a safe environment, Educated pt \T\ family on fall prevention, incl call for assistance when getting out of bed. Abuse screen: Denies threats or abuse. Nutritional screening: No deficits noted. Tuberculosis screening: No symptoms or risk factors identified. Assessment: 21:00 Reassessment: No changes from previously documented assessment. Patient and/or family vc1 updated on plan of care and expected duration. Pain level reassessed. General: Appears in no apparent distress. uncomfortable, Behavior is cooperative. Pain: Complains of pain in abdomen Pain radiates to back Pain currently is 10 out of 10 on a pain scale. Quality of pain is described as sharp, Aggravated by eating, drinking, Noted to be grimacing, restless, Also complains of shortness of breath, can't sleep, taking breath away, unable to poop. GI: Bowel sounds present X 4 quads. Abd is soft Abdomen is tender to palpation. 22:00 Reassessment: Patient and/or family updated on plan of care and expected duration. Pain vc1 level reassessed. Patient is alert, oriented x 3, equal unlabored respirations, skin warm/dry/pink. Patient states symptoms have improved. Vital Signs: 19:34 BP 135 / 100; Pulse 73; Resp 18; Temp 98.2; Pulse Ox 100% on R/A; Weight 113.4 kg; pf1 Height 5 ft. 10 in. ; Pain 10/10; 21:11 BP 146 / 96; Pulse 58; Resp 18; Pulse Ox 97% ; vc1 22:26 BP 121 / 73; Pulse 68; Resp 18; Pulse Ox 99% ; vc1 19:34 Body Mass Index 35.87 (113.40 kg, 177.8 cm) pf1 19:34 Pain Scale: Adult pf1 ED Course: 19:29 Patient arrived in ED. am2 19:34 Andrez Jo PA is PHCP. cp 19:35 Jonah Gupta DO is Attending Physician. cp 19:39 Triage completed. pf1 20:47 Urinalysis w/ reflexes Sent. cm10 20:51 Inserted saline lock: 22 gauge in left hand, using aseptic technique. Blood collected. vc1 20:52 CBC with Diff Sent. vc1 20:52 CMP Sent. vc1 20:52 Lipase Sent. vc1 21:11 Jennifer Sandoval, RN is Primary Nurse. vc1 21:14 Arm band placed on right wrist. vc1 21:14 Patient has correct armband on for positive identification. Bed in low position. Call vc1 light in reach. Pulse ox on. NIBP on. 21:24 US Abdomen Limited In Process Unspecified. EDMS 22:20 XRAY Chest (1 view) In Process Unspecified. EDMS 23:01 Edwin Goldstein MD is Referral Physician. cp 23:19 No provider procedures requiring assistance completed. IV discontinued, intact, vc1 bleeding controlled, No redness/swelling at site. Pressure dressing applied. 23:20 Provided Education on: f/u with surgeon. vc1 Administered Medications: 21:10 Drug: NS 0.9% IV 1000 ml Route: IV; Rate: 1 bolus; Site: left hand; vc1 21:11 Drug: HYDROmorphone IVP 1 mg Route: IVP; Site: left hand; vc1 22:45 Follow up: Response: No adverse reaction; Marked relief of symptoms; Pain is decreased vc1 21:11 Drug: Ondansetron IVP 4 mg Route: IVP; Site: left hand; vc1 22:46 Follow up: Response: No adverse reaction; Marked relief of symptoms vc1 21:11 Drug: Pantoprazole IVP 40 mg Route: IVP; Site: left hand; vc1 22:46 Follow up: Response: No adverse reaction; Marked relief of symptoms vc1 22:44 Drug: GI Cocktail without - (Maalox PO Suspension 30 ml, Lidocaine Mucous vc1 Membrane Liquid 2 % 15 ml) {Note: administered without the viscous lidocaine because it is not available, provider aware .} Route: PO; 22:45 Follow up: Response: No adverse reaction; Marked relief of symptoms vc1 Medication: 21:14 VIS not applicable for this client. vc1 Outcome: 23:02 Discharge ordered by . cp 23:20 Discharged to home ambulatory. vc1 23:20 Condition: good 23:20 Discharge instructions given to patient, Instructed on discharge instructions, follow up and referral plans. medication usage, Demonstrated understanding of instructions, follow-up care, medications, Prescriptions given X 2. 23:20 Patient left the ED. vc1 Signatures: Dispatcher [employer] EDMS Andrez Jo PA PA cp Moreno, Amanda am2 Calcote, Vanessa RN RN vc1 Elma Frey RN RN pf1 Tanisha Goldstein RN RN cm10
[2022-10-28 00:30] VITALS: TEMP 98.2
[2022-10-28 00:40] VITALS: BP 121/73; O2SAT 99
== END 2022-10-27 23:20 | disposition home or self-care (01) ==
LOC: ER 19:28
DX: K80.80 Other cholelithiasis without obstruction (principal); F17.210 Nicotine dependence, cigarettes, uncomplicated
CPT/HCPCS: 85025; 36415; 81003; 83690; 80053; 71045; 76705; 96375; 96374; 99284; C9113; J1170; J2405; J7030

== ENCOUNTER 2022-11-04 06:08 | Day surgery (SDC) | payer OTHER ==
[2022-11-03 12:15] LABS: Absolute Lymphocytes (CBC) 2.3 K/uL (0.7-4.9); Hematocrit 41.4 % (39.6-49.0); MCV 83.7 fL (80-100); MPV 8.8 fL (7.6-11.3); Platelets 201 thou/uL (152-406); RBC Red Blood Cell Count 4.95 M/uL (4.33-5.43)
[2022-11-03 12:32] LABS: Albumin 3.9 g/dL (3.4-5.0); Bilirubin Direct 0.2 mg/dL (0-0.2); Bilirubin Indirect, Calculated 0.5 mg/dL (0.2-0.8); Bilirubin Total 0.7 mg/dL (0.2-1.0); Potassium 4.3 mEq/L (3.5-5.1); Protein, Total 7.3 g/dL (6.4-8.2)
--- NOTE | 2022-11-03 12:37 | RAD REPORT ---
EXAM DESCRIPTION: RAD - Chest Pa And Lat (2 Views) - 11/03/2022 12:14 pm CLINICAL HISTORY: PREOP Chest pain. COMPARISON: <Comparisons> FINDINGS: The lungs are clear. The heart is normal in size. No displaced fractures. IMPRESSION: No acute or concerning finding suspected.
[2022-11-04] MEDS ORDERED: Ringers Lactate 1,000 ML IV ONE (06:33)
[2022-11-04] MEDS ORDERED: CEFOXITIN SODIUM 1 GM/VIAL ONE (06:33)
[2022-11-04] MEDS ORDERED: BUPIVACAINE 0.5% PF 10 ML VIAL ONE (07:08)
[2022-11-04] MEDS ORDERED: propofoL 200 MG/20 ML VIAL IV ONE (07:20)
[2022-11-04] MEDS ORDERED: ROCURONIUM 50 MG/5 ML VIAL IV ONE (07:20)
[2022-11-04] MEDS ORDERED: LIDOCAINE 2% MPF 5 ML VIAL ONE (07:21)
[2022-11-04] MEDS ORDERED: MIDAZOLAM HCL 2 MG/2 ML INJ ONE (07:22)
[2022-11-04] MEDS ORDERED: FENTANYL CITR 250 MCG/5 ML ONE (07:22)
[2022-11-04] MEDS ORDERED: GLYCOPYRROLATE 0.2 MG/ML SYR ONE (07:23)
[2022-11-04] MEDS ORDERED: ONDANSETRON 4 MG/2 ML VIAL ONE ×2 (07:26→09:10)
[2022-11-04] MEDS ORDERED: NEOSTIGMINE 1 MG/ML -10 ML VIAL ONE (07:26)
[2022-11-04] MEDS ORDERED: SUCCINYLCHOLINE 20 MG/ML (10 ML) IV ONE (07:50)
[2022-11-04] MEDS ORDERED: dexAMETHasone 10 MG/ML VIAL ONE (08:07)
[2022-11-04] MEDS ORDERED: KETOROLAC 30 MG/ML INJ ONE (08:25)
--- NOTE | 2022-11-04 08:44 | P.BOP ---
Preoperative diagnosis: symptomatic cholelithiasis, acute cholecystitis Postoperative diagnosis: same Primary procedure: Laparoscopic cholecystectomy Mechanical Detailer: MARTIN BAUTISTA (PRODUCE DEPARTMENT MANAGER) Estimated blood loss: <10cc Specimen: gb Findings: inflammed GB Anesthesia: General Complications: None Transferred to: Recovery Room Condition: Good
[2022-11-04] MEDS: HYDROMORPHONE HCL 1 MG/ML INJ ONE ×2 (09:01→09:15)
[2022-11-04] MEDS ORDERED: CODEINE 30MG/APAP 300MG TAB PO ONE (09:03)
[2022-11-04] MEDS ORDERED: CODEINE 30MG/APAP 300MG TAB ONE (10:10)
[2022-11-04 10:34] VITALS: BP 109/66; TEMP 97.6; O2SAT 98
--- NOTE | 2022-11-04 16:41 | OP ---
Date of Procedure: 11/04/2022 Surgeon: Edwin Goldstein MD Sciences Dean: Natacha Higgins. Preoperative Diagnoses: Symptomatic cholelithiasis, right upper quadrant abdominal pain, acute ethan cystitis. Postoperative Diagnoses: Symptomatic cholelithiasis, right upper quadrant abdominal pain, acute chol ecystitis. Procedure: Laparoscopic cholecystectomy. Estimated Blood Loss: Less than 10 mL. Specimen: Gallbladder. Findings: Inflamed gallbladder. Anesthesia: General plus local. Complications: None. Indication: This is the case of a 32-year-old patient with above diagnoses. Fully explained the aníbal efits, alternatives, and risks of laparoscopic possible open cholecystectomy, which include, but not limited to infection, bleeding, damage to adjacent structures, anesthesia complication, choledocholit hiasis, bile leak, pancreatitis, [place], and even . He also understands this may not relieve any sy mptoms. He might need more than one surgical intervention. He understood, signed a consent. Procedure In Detail: The patient was brought to the operating room, placed in supine position. Anes thesia was done without complication. Abdominal area was prepped and draped in the usual sterile fas hion. Marcaine 0.5% was injected for local anesthetic followed by sharp incision of the skin in the infraumbilical region. Incision was carried down to fascia, which was opened under direct vision. P eritoneum was encountered, opened under direct vision. Vicryl #1 placed inside the fascia. Aura t rocar was carefully introduced. Pneumoperitoneum was obtained. I placed 3 more trocars, 5 mm each o ne of them in the epigastric and right upper quadrant area under direct visualization. This allowed me to put a grasper in the fundus of the gallbladder, another grasper in the infundibulum retracting the gallbladder in the inferolateral fashion, exposing the triangle of Calot, and obtaining critical view. The gallbladder wall looks erythematosus consistent with his diagnosis. Once we exposed the t riangle of Calot, we proceeded to identify the cystic duct and cystic artery and a connection between those and the gallbladder were clearly identified. I proceeded to ligate those by using at least 3 clips proximal, 1 clip distal, ligation in middle. Same was done with the cystic artery. A small li ttle branch of the cystic artery was also ligated. Hepatic arteries and common bile duct were protec timi at all times. The gallbladder was removed from the liver using Bovie cauterizer and removed from the abdominal cavity using EndoCatch through the umbilical incision. Due to the size of the gallbla dder and the size of the stones, we have to extend the incision on the bellybutton to allow to extrac t the gallbladder through the bellybutton. This was secured with more Vicryl. At that moment, I pro ceeded to place the cameras back again and irrigated the area, obtained hemostasis. Clips were intac t. No bile leak, no bleeding. At that moment, I proceeded to remove the trocars under direct vision . Deflated the pneumoperitoneum. Closed the fascia with #1 Vicryl. Irrigated subcutaneous tissue, closed that with 3-0 chromic and skin with subcuticular fashion with 3-0 chromic and Steri-Strips on top. Sponge count, instrument counts correct. The patient tolerated the procedure well. The patien t was sent to recovery in stable condition. MICHELLE/ALINA Voice ID: [id number] Report ID: [id number]
--- NOTE | 2022-11-04 16:41 | DS ---
Date of Discharge: 11/04/2022 Diagnoses: Right upper quadrant abdominal pain, acute cholecystitis, symptomatic cholelithiasis. Procedure: Laparoscopic cholecystectomy. Disposition: Home. Activity: As tolerated. No heavy lifting. Plan: Follow up in my office in 1 week. Call for appointment at [phone]. Keep area dry for 48 aixa rs, then may shower. Keep Steri-Strips intact. MICHELLE/ALINA Voice ID: [id number] Report ID: [id number]
== END 2022-11-04 10:15 | disposition home or self-care (01) ==
LOC: OR 06:08
PROVIDERS: ATTEND Surgery
PROC: 0FT44ZZ Resection of Gallbladder, Percutaneous Endoscopic Approach (ICD-10-PCS; principal; 2022-11-04 07:30)
DX: K80.20 Calculus of gallbladder without cholecystitis without obstruction (principal)
CPT/HCPCS: 85025; 80048; 36415; 80076; 88304; 83690; 71046; 47562; J2704; J2710; J2001; J2250; J3010; J1100; J1170; J0694; J2405 ×2; J7120

== ENCOUNTER 2024-12-12 08:22 | Emergency (ER) | payer OTHER ==
--- OUTSIDE RECORDS SUMMARY | 2024-12-12 08:26 | XMS REPORT | Continuity of Care Document ---
Author Name Unknown Address [address] [facility] [address] [place] [address] [facility] Address [address] [place] [address] Care Team Providers Care Agriculture Extension Specialist Name Role Phone NOEMY KEEN Primary Care Physician UnavailCARSON Leos Attending Clinician Unavailable Carson Tamayo PA-C Attending Clinician [phone] Doctor Unassigned, [place] Attending Clinician U HONG Price Attending Clinician Unavailable Hong Redding MD Attending Clinician [phone] AMISHA TORRES Attending Clinician Unavailable Amisha Molina S Attending Clinician [phone] CHRISTIANO COLMENARES Attending Clinician Unavailable PRINCESS VELAZQUEZ Attending Clinician Unavailable Princess Velazquez MD Attending Clinician [phone] Christiano Lopez Attending Clinician [phone] AFUA ABDUL Attending Clinician UnavailAfua Tyler MD Attending Clinician [phone] MEGAN FALK Attending Clinician Unavailab Megan Herrera DO Attending Clinician [phone] Margarito SHELTON, Isabel Cifuentes Attending Clinician Unavailab riri BARAJAS, ATTENDING Attending Clinician Unavailab riri Fry MD, Espinoza Silverman Attending Clinician [phone] Lab, Adc Fam Pob I Attending Clinician Grace Melton Attending Clinician GRACE POLLARD Attending Clinician AMISHA Borges Admitting Clinician AFUA Aquino Admitting Clinician Sia carroll Payers Payer Name Policy Type Policy Number Effective Date Expirati on Date Source Problems Condition Name Condition Details Condition Category Status Onset Date Resolution Date Last Treatment Date Treating Clinician Comments Source Environmen mariella allergies Environmen mariella allergies Disease Active 05-03 00:00: 00 [facility] 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 status migrainosu s, 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 status migrainosu s, 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 Disease Active 05-03 00:00: 00 [facility] Allergies, Adverse Reactions, Alerts Allergy Name Allergy Type Status Severity Reaction(s) Onset Date Inactive Date Treating Clinician Comments Source NO KNOWN ALLERGIE S Drug Class Active [facility] Social History Social Habit Start Date Stop Date Quantity Comments Source History SDOH Alcohol Frequency [facility] History SDOH Alcohol Std Drinks [facility] History SDOH Alcohol Binge [facility] History of tobacco use Cigarette Smoker [facility] [place] [place] Tobacco use and exposure 2024-03-10 00:00:00 2024-03-10 00:00:00 Smokeless tobacco non-user [facility] History of Social function 2024-03-10 00:00:00 2024-03-10 00:00:00 [facility] Exposure to SARS-CoV-2 (event) 2022-07-07 00:00:00 2022-07-17 07:43:00 Not sure [facility] Cigarettes smoked current (pack per day) - Reported 2022-07-17 00:00:00 2022-07-17 00:00:00 [facility] Tobacco Comment 2022-07-17 00:00:00 2022-07-17 00:00:00 2 packs a week [facility] Alcohol Comment 2021-05-03 00:00:00 2021-05-03 00:00:00 6 beers a week [facility] Sex assigned at 1990 00:00:00 1990 00:00:00 [facility] Smoking Status Start Date Stop Date Source Tobacco smoking consumption unknown [facility] Smokes tobacco daily 2024-03-10 00:00:00 [facility] Medications Ordered Medication Name Filled Medication Name Start Date Stop Date Current Medication? Ordering Clinician Indication Dosage Frequency Signature (SIG) Comments Components Source fluticasone propionate 50 mcg/actuati on nasal spray 2023-03 00:00: 00 Yes [id number] 1{spray } Use 1 [place] in each nostril in the morning and 1 [place] in the evening. [facility] ketorolac (TORADOL) injection 30 mg 06-09 19:00: 00 06-09 18:07 :00 No 30mg 30 mg, Slow IV Push, ONCE, 1 dose, On Thu06/09/22 at 1400, WILI [facility] naproxen (NAPROSYN) 500 mg tablet 06-09 00:00: 00 Yes [id number] 500mg Take 1 tablet by mouth in the morning and 1 tablet in the evening. Take with meals. [facility] dexamethaso ne (DECADRON PHOSPHATE) injection 8 mg 11-23 03:15: 00 11-23 02:29 :00 No 8mg 8 mg, Intramuscu lar, ONCE, 1 dose, On Thu11/22/21 at 2215, WILI [facility] methylPREDN ISolone 4 mg tablets 11-22 00:00: 00 Yes [id number] Take by mouth SEE-INSTRU CTIONS. follow package directions [facility] hydrOXYzine 25 mg capsule 11-22 00:00: 00 Yes [id number] 25mg Take 1 capsule by mouth 3 (three) times daily as needed for Itching. [facility] ubrogepant (UBRELVY) 100 mg Tab 4-14 00:00: 00 Yes [id number] 100mg Take 100 mg by mouth as needed for Pain (scale 4-6) or Pain (scale 7-10). [facility] verapamiL 120 mg 24 hr capsule 4-14 00:00: 00 07-17 00:00 :00 No [id number] 120mg Take 1 capsule by mouth at bedtime. [facility] multivit,ca lc,min/FA/K 1/lycop (ONE-A-DAY MEN'S COMPLETE ORAL) 05-03 11:58: 42 Yes Take by mouth. [facility] proMETHazin e 12.5 mg tablet 05-03 00:00: 00 Yes [id number] 12.5mg Take 1 tablet by mouth every 4 (four) hours as needed for N/V unresponsi ve to Ondansetro n or N/V alternatin g with Ondansetro n. [facility] cetirizine 10 mg tablet 05-03 00:00: 00 Yes [id number] 10mg Take 1 tablet by mouth daily. [facility] cyclobenzap rine 10 mg tablet 05-03 00:00: 00 Yes [id number] 10mg Take 1 tablet by mouth 3 (three) times daily. [facility] Vital Signs Vital Name Observation Time Observation Value Comments S ource Body temperature 2024-03-10 19:09:00 36.17 Renetta [facility] Body height 2024-03-10 19:09:00 172.7 cm [facility] Body weight 2024-03-10 19:09:00 113.309 kg [facility] BMI 2024-03-10 19:09:00 37.98 kg/m2 [facility] Systolic blood pressure 2022-07-17 13:06:00 120 mm[Hg] [facility] Diastolic blood pressure 2022-07-17 13:06:00 76 mm[Hg] [facility] Heart rate 2022-07-17 13:06:00 78 /min Unive [facility] Body temperature 2022-07-17 13:06:00 36.39 Renetta [facility] Body height 2022-07-17 13:06:00 180.3 cm [facility] Body weight 2022-07-17 13:06:00 117.028 kg [facility] BMI 2022-07-17 13:06:00 35.98 kg/m2 [facility] Oxygen saturation in Arterial blood by Pulse oximetry 2022-07-17 13:06:00 99 /min [facility] Systolic blood pressure 2022-06-09 19:00:00 112 mm[Hg] [facility] Diastolic blood pressure 2022-06-09 19:00:00 72 mm[Hg] [facility] Heart rate 2022-06-09 19:00:00 61 /min Unive [facility] Respiratory rate 2022-06-09 19:00:00 15 /min [facility] Oxygen saturation in Arterial blood by Pulse oximetry 2022-06-09 19:00:00 97 /min [facility] Body temperature 2022-06-09 16:00:00 36 Reentta [facility] Body weight 2022-06-09 16:00:00 110.678 kg [facility] BMI 2022-06-09 16:00:00 35.01 kg/m2 [facility] Systolic blood pressure 2021-11-23 02:00:00 114 mm[Hg] [facility] Diastolic blood pressure 2021-11-23 02:00:00 68 mm[Hg] [facility] Heart rate 2021-11-23 02:00:00 67 /min [facility] Respiratory rate 2021-11-23 02:00:00 16 /min [facility] Oxygen saturation in Arterial blood by Pulse oximetry 2021-11-23 02:00:00 97 /min [facility] Body temperature 2021-11-23 01:46:00 36.06 Renetta [facility] Body height 2021-11-23 01:46:00 177.8 cm [facility] Body weight 2021-11-23 01:46:00 110.768 kg [facility] BMI 2021-11-23 01:46:00 35.04 kg/m2 [facility] Procedures Procedure Date / Time Performed Performing Clinician Source ASSIGNMENT OF BENEFITS 2022-07-17 12:45:16 Docto r Unassigned, [place] [facility] XR CHEST 1 VW 2022-06-09 16:54:00 Amisha Torres [facility] TROPONIN I 2022-06-09 16:37:00 Amisha Torres [facility] COMP. METABOLIC PANEL ([id number]) 2022-06-09 16:37:00 Amisha Torres [facility] CBC WITH DIFF 2022-06-09 16:37:00 Amisha Torres [facility] CONSENT/REFUSAL FOR DIAGNOSIS AND TREATMENT 2022-06-09 16:01:44 Doctor Unassigned, [place] [facility] CONSENT/REFUSAL FOR DIAGNOSIS AND TREATMENT 2022-06-09 15:57:30 Doctor Unassigned, [place] [facility] NOTICE OF PRIVACY PRACTICES 2021-11-23 01:27:11 Doctor Unassigned, [place] [facility] CONSENT/REFUSAL FOR DIAGNOSIS AND TREATMENT 2021-11-23 01:25:40 Doctor Unassigned, [place] [facility] MEDICATION CORRESPONDENCE 2021-07-12 05:01:00 Do ctor Unassigned, [place] [facility] Encounters Start Date/Time End Date/Time Encounter Type Admission Type Attending [facility] Care Facility Care Department Encounter ID Source 2024-03-10 13:40:00 2024-03-10 14:00:00 Office Visit Carson Tamayo [facility] 1..840.114 350.1.13.10 4.2.7.2.686 [id number] [facility] 2024-03-10 13:40:00 2024-03-10 13:40:00 Outpatient R CARSON TAMAYO [facility] [id number] [facility] 2023-05-29 00:00:00 2023-05-29 00:00:00 Patient Secure Msg Doctor Unassigned, [place] [facility] 1..840.114 350.1.13.10 4.2.7.2.686 [id number] [facility] 2022-07-17 08:00:00 2022-07-17 08:26:17 Outpatient R HONG REDDING [facility] [id number] [facility] 2022-07-17 08:00:00 2022-07-17 08:26:17 Office Visit Hong Redding [facility] 1.284.114 350.1.13.10 4.2.7.2.686 [id number] [facility] 2022-07-17 00:00:00 2022-07-17 00:00:00 Orders Only Doctor Unassigned, [place] [facility] 1..114 350.1.13.10 4.2.7.2.686 [id number] [facility] 2022-06-09 11:02:00 2022-06-09 14:25:00 Emergency X AMISHA TORRES [facility] ERT [id number] [facility] 2022-06-09 11:02:00 2022-06-09 14:25:00 Emergency Amisha Torres [facility] 1.84.114 350.1.13.10 4.2.7.2.686 [id number] [facility] 2022-01-23 09:00:00 2022-01-23 09:00:00 Outpatient CHRISTIANO BOWLES [facility] [id number] [facility] 2021-11-22 20:49:00 2021-11-22 22:38:00 Emergency X PRINCESS VELAZQUEZ [facility] ERT [id number] [facility] 2021-11-22 20:49:00 2021-11-22 22:38:00 Emergency Princess Velazquez [facility] 1.2840.114 350.1.13.10 4.2.7.2.686 [id number] [facility] 2021-07-12 00:00:00 2021-07-12 00:00:00 Orders Only Doctor Unassigned, [place] [facility] 1.2.840.114 350.1.13.10 4.2.7.2.686 [id number] [facility] 2021-07-08 00:00:00 2021-07-08 00:00:00 Patient Secure Msg Doctor Unassigned, [place] [facility] 1.2.840.114 350.1.13.10 4.2.7.2.686 [id number] [facility] 2021-07-04 13:00:00 2021-07-04 13:00:00 [facility] 1.2840.114 350.1.13.10 4.2.7.2.686 [id number] [facility] 2021-07-04 13:00:00 2021-07-04 12:59:08 Outpatient R PALMA COLMENARESESPINOZA [facility] [id number] [facility] 2021-07-04 00:00:00 2021-07-04 00:00:00 Telephone Jay [facility] MED[facility] OFF[facility] BUILD[facility] 1.2840.114 350.1.13.10 4.2.7.2.686 [id number] [facility] 2021-07-04 00:00:00 2021-07-04 00:00:00 Telephone Jay [facility] MED[facility] OFF[facility] 1.2.840.114 350.1.13.10 4.2.7.2.686 [id number] [facility] 2021-07-04 00:00:00 2021-07-04 00:00:00 Telephone Jay, [facility] MED[facility] OFF[facility] 1.2.840.114 350.1.13.10 4.2.7.2.686 [id number] [facility] 2021-05-03 11:00:00 2021-05-03 11:48:33 Outpatient R CHRISTIANO COLMENARES [facility] [id number] [facility] 2021-05-03 11:00:00 2021-05-03 11:48:33 Office Visit Christiano Colmenares [facility] 1.2.840.114 350.1.13.10 4.2.7.2.686 [id number] [facility] 2021-04-14 18:26:00 2021-04-15 00:02:00 Emergency AFUA SU [facility] ERT [id number] [facility] 2021-04-14 18:26:00 2021-04-15 00:02:00 Emergency Afua Abdul [facility] 1.2840.114 350.1.13.10 4.2.7.2.686 [id number] [facility] 2021-03-24 19:36:00 2021-03-24 20:05:00 Emergency MEGAN MORGAN [facility] ERT [id number] [facility] 2021-03-24 19:36:00 2021-03-24 20:05:00 Emergency Megan Falk [facility] 1.840.114 350.1.13.10 4.2.7.2.686 [id number] [facility] 2020-11-11 00:00:00 2020-11-11 00:00:00 Letter (Out) Isabel Pimentel [facility] 1.2.840.114 350.1.13.10 4.2.7.2.686 [id number] [facility] 2020-11-11 00:00:00 2020-11-11 00:00:00 Patient Secure Msg Doctor Unassigned, [place] [facility] 1.84114 350.1.13.10 4.2.7.2.686 [id number] [facility] 2020-11-10 11:00:00 2020-11-10 11:00:00 Outpatient R UNKNOWN, ATTENDING [facility] [id number] [facility] 2020-11-06 00:00:00 2020-11-06 00:00:00 Letter (Out) Espinoza Fry [facility] Office [facility] .84.114 350.1.13.10 4.2.7.2.686 [id number] [facility] 2020-10-31 17:22:56 2020-10-31 19:08:45 Laboratory Only Lab, Adc Fam Pob Citlaly Jai [facility] Office Building One .114 350.1.13.10 4.2.7.2.686 [id number] [facility] 2020-10-31 17:00:00 2020-10-31 17:00:00 Outpatient R BELGICA POLLARDTANY [facility] [id number] [facility] 2020-10-31 00:00:00 2020-10-31 00:00:00 Letter (Out) Doctor Unassigned, [place] [facility] 1.114 350.1.13.10 4.2.7.2.686 [id number] [facility] 2020-10-31 00:00:00 2020-10-31 00:00:00 Letter (Out) Doctor Unassigned, [place] [facility] [id number] 350.1.13.10 4.2.7.2.686 [id number] [facility] 2020-10-31 00:00:00 2020-10-31 00:00:00 Letter (Out) Doctor Unassigned, [place] [facility] 1.2.840.114 350.1.13.10 4.2.7.2.686 [id number] [facility] 2020-10-31 00:00:00 2020-10-31 00:00:00 Letter (Out) Doctor Unassigned, [place] [facility] 1.2.840.114 350.1.13.10 4.2.7.2.686 [id number] [facility] Results Test Description Test Time Test Comments Results Result Co mments Source [facility]54838[facility]2022-[facility]-09 17:16:40* Test Item Value Reference Range Interpretation Comme nts NA (test code = 2858679174) 139 mmol/L 135-145 K (test code = 1949774352) 4.4 mmol/L 3.5-5.0 CL (test code = 7404399223) 105 mmol/L 98-108 CO2 TOTAL (test code = 0612431131) 23 mmol/L 23-31 AGAP (test code = 2645746239) 11 2-16 BUN (test code = 7326068888) 13 mg/dL 7-23 GLUCOSE (test code = 5074780340) 95 mg/dL 70-110 CREATININE (test code = 7640211750) 0.84 mg/dL 0.60-1.25 TOTAL BILI (test code = 3703761094) 0.7 mg/dL 0.1-1.1 CALCIUM (test code = 8513133681) 9.1 mg/dL 8.6-10.6 T PROTEIN (test code = 9823518146) 7.3 g/dL 6.3-8.2 ALBUMIN (test code = 3230778141) 4.5 g/dL 3.5-5.0 ALK PHOS (test code = 8876680322) 62 U/L 34-122 ALTv (test code = 1742-6) 20 U/L 5-50 AST(SGOT) (test code = 7196643283) 20 U/L 13-40 eGFR (test code = 9224089779) 107.3 mL/min/1.73m2 ZAKIA (test code = ZAKIA) Association of [...] or urine or abnormalities in imaging tests). [facility] WITH [id number] 17:03:58* Test Item Value Reference Range Interpretation Comme nts WBC (test code = 6690-2) 9.68 See_Comment [Automated [employer]] The system which generated this result transmitted reference range: 4.20 - 10.70 10*3/?L. The reference range was not used to interpret this result as normal/abnormal. RBC (test code = 789-8) 4.77 See_Comment [Automated [employer]] The system which generated this result transmitted reference range: 4.26 - 5.52 10*6/?L. The reference range was not used to interpret this result as normal/abnormal. HGB (test code = 718-7) 14.3 g/dL 12.2-16.4 HCT (test code = 4544-3) 39.0 % 38.4-49.3 MCV (test code = 787-2) 81.8 fL 81.7-95.6 MCH (test code = 785-6) 30.0 pg 26.1-32.7 MCHC (test code = 786-4) 36.7 g/dL 31.2-35.0 H RDW-SD (test code = 40553-3) 35.5 fL 38.5-51.6 L RDW-CV (test code = 788-0) 11.9 % 12.1-15.4 L PLT (test code = 777-3) 194 See_Comment [Automated messa ge] The system which generated this result transmitted reference range: 150 - 328 10*3/?L. The reference range was not used to interpret this result as normal/abnormal. MPV (test code = 89633-7) 10.9 fL 9.8-13.0 NRBC/100 WBC (test code = 5201939393) 0.0 See_Comment [Automated [employer]] The system which generated this result transmitted reference range: 0.0 - 10.0 /100 WBCs. The reference range was not used to interpret this result as normal/abnormal. NRBC x10^3 (test code = 6554657328) See_Comment [Automated [employer] ge] The system which generated this result transmitted reference range: 10*3/?L. The reference range was not used to interpret this result as normal/abnormal. GRAN MAT (NEUT) % (test code = 770-8) 69.6 % IMM GRAN % (test code = 4022467215) 0.30 % LYMPH % (test code = 736-9) 20.4 % MONO % (test code = 5905-5) 6.9 % EOS % (test code = 713-8) 2.4 % BASO % (test code = 706-2) 0.4 % GRAN MAT x10^3(ANC) (test code = 9636042338) 6.74 10*3/uL 1.99-6.95 IMM GRAN x10^3 (test code = 9338938651) 0.03 10*3/uL 0.00-0.06 LYMPH x10^3 (test code = 731-0) 1.97 10*3/uL 1.09-3.23 MONO x10^3 (test code = 742-7) 0.67 10*3/uL 0.36-1.02 EOS x10^3 (test code = 711-2) 0.23 10*3/uL 0.06-0.53 BASO x10^3 (test code = 704-7) 0.04 10*3/uL 0.01-0.09 Lab Interpretation (test code = 52689-8) Abnormal [facility]"
[2024-12-12] MEDS ORDERED: METOCLOPRAMIDE 10 MG/2mL INJ ONE (08:44)
[2024-12-12] MEDS ORDERED: NA CHLORIDE 0.9% 1,000 ML ONE (08:45)
[2024-12-12] MEDS ORDERED: DIPHENHYDRAMINE 12.5MG/5ML LIQ ONE (08:45)
[2024-12-12] MEDS ORDERED: DIPHENHYDRAMINE 50 MG/ML VIAL ONE (08:47)
[2024-12-12 09:10] LABS: Absolute Lymphocytes (CBC) 1.5 K/uL (0.7-4.9); Hematocrit 39.8 % (39.6-49.0); Hemoglobin 13.8 g/dL (13.6-17.9); MCH 28.1 pg (27.0-35.0); MCHC 34.7 g/dL (32.0-36.0); MCV 81.1 fL (80-100); MPV 8.0 fL (7.6-11.3); Nucleated RBC Absolute Count 0.0 (0-0); Nucleated Red Blood Cells % 0.1 % (0-0); RBC Red Blood Cell Count 4.90 M/uL (4.33-5.43); White Blood Count 9.70 thou/uL (4.3-10.9)
[2024-12-12 09:19] LABS: Influenza A Ag Negative; Influenza B Ag Negative; SARS-CoV-2 Antigen Rapid Res Negative (Negative)
--- NOTE | 2024-12-12 09:20 | RAD REPORT ---
EXAMINATION: Head Brain Wo Cont CLINICAL INDICATION: Male, 34 years old.HEADACHE TECHNIQUE: Axial CT images from the skull base to the vertex without intravenous contrast. Coronal an d sagittal reformatted images were created from the data set. One or more of the following dose reduction techniques were used: Automated exposure control, adjustment of the mA and/or kV according to patient size, and/or iterative reconstruction. Unless otherwise specified, incidental findings do not require dedicated imaging follow-up. [id number]. COMPARISON: No prior exams FINDINGS: INTRACRANIAL: No acute intracranial hemorrhage. No acute large vascular territory infarct. No hydroce phalus. No mass effect or midline shift. No significant white matter disease. VASCULATURE: No visualized abnormalities in the arteries or dural venous sinuses. SCALP/SKULL: No calvarial fracture identified. No acute soft tissue abnormality. SINUSES: Mucosal thickening right maxillary sinus. No significant mastoid fluid. IMPRESSION: No acute intracranial abnormality.
[2024-12-12] MEDS ORDERED: ONDANSETRON 4 MG/2 ML VIAL ONE (09:33)
[2024-12-12] MEDS ORDERED: KETOROLAC 30 MG/ML INJ ONE (09:33)
--- NOTE | 2024-12-12 09:35 | RAD REPORT ---
EXAM: Chest Single View HISTORY: 34 years Male COUGH COMPARISON: No prior exams FINDINGS: LUNGS/PLEURA: The lungs are clear. No pleural effusions or pneumothorax. No pulmonary edema. CARDIAC/MEDIASTINUM: The cardiac silhouette is within normal limits. UPPER ABDOMEN: No significant abnormality. BONES: No acute abnormality. LINES/TUBES/OTHER: N/A IMPRESSION: No evidence of acute cardiopulmonary disease.
[2024-12-12 11:26] LABS: ALT/SGPT 27 U/L (16-61); Albumin 3.3 g/dL (3.4-5.0); Albumin/Globulin Ratio 0.9 (1.1-1.8); Alkaline Phosphatase 77 U/L (45-117); Anion Gap 8.4 mEq/L (5.0-15.0); BUN Blood Urea Nitrogen 12 mg/dL (7-18); Globulin 3.6 g/dL (2.3-3.5); Glucose Level 118 mg/dL (74-106); Potassium 4.4 mEq/L (3.5-5.1)
[2024-12-12 11:29] LABS: AST/SGOT < 10 U/L (15-37)
--- NOTE | 2024-12-12 12:09 | EDPHYS ---
Physician Documentation [facility] Name: Jem Garnica Jr Age: 34 yrs Sex: Male : 1990 Arrival Date: 12/12/2024 Time: 08: Bed 17 Private MD: ED Physician Lyndon May HPI: 12/12 08:39 This 34 yrs old Black Male presents to ER via Ambulatory with complaints of Vomiting, kb Shortness Of Breath. 08:39 Patient is a 34-year-old male who presents for cough, congestion, headache, diarrhea kb and shortness of breath that started 1 week ago. states that he has not been acting himself this morning because he has been overly fatigued. Patient falling asleep in triage. Patient reports headache to the left side of his head but does report a history of migraines.. Historical: - Allergies: 08:38 No Known Allergies; ss - PMHx: 08:38 acid reflux; GALLSTONES; Migraines (Cholecystectomy); ss - PSHx: 08:38 Cholecystectomy; ss - Immunization history:: Adult Immunizations unknown. - Infectious Disease History:: Denies. - Social history:: Smoking status: Patient reports the use of cigarette tobacco products, denies chronic smoking, but will smoke occasionally. ROS: 11:26 Constitutional: As per HPI kb Exam: 11:26 Constitutional: This is a well developed, well nourished patient who is awake, alert, kb and in no acute distress. Head/Face: Normocephalic, atraumatic. ENT: Moist Mucous membranes Respiratory: Respirations even and unlabored. No increased work of breathing. Talking in full sentences Abdomen/GI: Soft, non-tender. No distention Skin: Warm, dry with normal turgor. Normal color. MS/ Extremity: Pulses equal, no cyanosis. Neurovascular intact. Full, normal range of motion. Neuro: Awake and alert, GCS 15, oriented to person, place, time, and situation. Vital Signs: 08:37 BP 122 / 71; Pulse 57; Resp 16; Temp 97.8(TE); Pulse Ox 97% on R/A; Weight 106.14 kg; ss Height 5 ft. 10 in. ; Pain 10/10; 10:19 BP 96 / 61; Pulse 62; Resp 16; Pulse Ox 95% on R/A; af3 11:00 BP 107 / 50; Pulse 59; Resp 16; Pulse Ox 96% ; me1 12:00 BP 109 / 61; Pulse 55; Resp 16; Temp 98.2; Pulse Ox 96% ; me1 08:37 Body Mass Index 33.58 (106.14 kg, 177.8 cm) ss 08:37 Pain Scale: Adult ss MDM: 08:34 Medical Screening Exam initiated kb 12:08 Differential diagnosis: viral gastroenteritis, covid, flu, dehydration, migraine. Data kb reviewed: vital signs, nurses notes. Historians other than the Patient: Family Member: . Counseling: I had a detailed discussion with the patient and/or guardian regarding the historical points, exam findings, and any diagnostic results supporting the discharge/admit diagnosis, lab results, radiology results, the need for outpatient follow up, a family practitioner, to return to the emergency department if symptoms worsen or persist or if there are any questions or concerns that arise at home. 12/12 08:39 Order name: CBC with Diff; Complete Time: 09:18 kb 12/12 08:39 Order name: CMP; Complete Time: 11:30 kb 12/12 08:39 Order name: COVID-19 Ag + Flu A+B Ag; Complete Time: 09:19 kb 12/12 08:39 Order name: Group A Streptococcus Rapid; Complete Time: 09:13 kb 12/12 09:13 Order name: Throat Culture EDMS 12/12 08:39 Order name: CT Head Brain wo Cont; Complete Time: 09:26 kb 12/12 08:40 Order name: Chest Single View XRAY; Complete Time: 09:36 kb 12/12 08:39 Order name: IV Start; Complete Time: 09:06 kb Administered Medications: 09:23 Drug: metoCLOPramide IVP 10 mg IVP once; over 1 to 2 minutes Route: IVP; Site: left af3 hand; 10:16 Follow up: Response: No adverse reaction af3 09:23 Drug: diphenhydrAMINE IVP 12.5 mg IVP once Route: IVP; Site: left hand; af3 10:16 Follow up: Response: No adverse reaction af3 09:23 Drug: Decadron - Dexamethasone IVP 10 mg IVP once Route: IVP; Site: left hand; af3 10:16 Follow up: Response: No adverse reaction af3 09:24 Drug: NS 0.9% IV 1000 ml IV at 1000 ml once; to be given as a bolus over 60 minutes af3 Route: IV; Rate: 1000 ml; Site: left hand; 10:16 Follow up: Response: No adverse reaction; IV Status: Completed infusion; IV Intake: af3 1000ml 09:42 Drug: Ketorolac IVP 15 mg IVP once Route: IVP; Site: left hand; af3 10:17 Follow up: Response: No adverse reaction af3 09:42 Drug: Ondansetron IVP 4 mg IVP once; over 2 minutes Route: IVP; Site: left hand; af3 10:17 Follow up: Response: No adverse reaction af3 Disposition: 17:09 Co-signature as Attending Physician, Lyndon May MD I reviewed the patient's care rn provided by the Advanced Practice Provider and agree with the diagnosis and treatment plan. Disposition Summary: 12/12/24 12:09 Discharge Ordered Notes: Location: Home kb Condition: Stable kb Diagnosis - Viral infection, unspecified kb Followup: kb - With: Emergency Department - When: As needed - Reason: Worsening of condition Followup: kb - With: Private Physician - When: 2 - 3 days - Reason: Recheck today's complaints, Continuance of care, Re-evaluation by your physician Discharge Instructions: - Discharge Summary Sheet kb - Migraine Headache, [id number] kb - Viral Illness, Adult kb Forms: - Medication Reconciliation Form kb - Antibiotic Education kb - Prescription Opioid Use kb - Patient Portal Instructions kb - Leadership Thank You Letter kb Signatures: Dispatcher [employer] EDIngrid Thakur, FINANCIAL COST ANALYST-C FINANCIAL COST ANALYST-Ckb Lyndon May MD MD rn Blanchard, Shelby, RN RN ss Fry, Ashley, RN RN af3 Corrections: (The following items were deleted from the chart) 08:39 08:39 Head Brain Wo Cont+CT.RAD.BRZ ordered. EDMS EDMS 08:40 08:40 CBC+H.LAB.BRZ ordered. EDMS EDMS 08:40 08:40 COMPREHENSIVE METABOLIC PANEL+C.LAB.BRZ ordered. EDMS EDMS 08:40 08:40 COVID-19 Ag + Flu A+B Ag+I.LAB.BRZ ordered. EDMS EDMS 08:40 08:40 Group A Streptococcus Rapid Sc+I.LAB.BRZ ordered. EDMS EDMS
--- NOTE | 2024-12-12 12:09 | ER ---
Nurse's Notes [facility] Name: Jem Garnica Jr Age: 34 yrs Sex: Male : 1990 Arrival Date: 12/12/2024 Time: : Bed 17 Private MD: Diagnosis: Viral infection, unspecified Presentation: 12/12 08:37 Chief complaint: Patient states: cough, congestion, SOB that began 1 week ago. EDGE that ss began yesterday. Coronavirus screen: Client denies travel out of the [place] in the last 14 days. Ebola Screen: Patient denies exposure to infectious person. Patient denies travel to an Ebola-affected area in the 21 days before illness onset. Initial Sepsis Screen: Does the patient meet any 2 criteria? No. Patient's initial sepsis screen is negative. Does the patient have a suspected source of infection? No. Patient's initial sepsis screen is negative. Risk Assessment: Do you want to hurt yourself or someone else? Patient reports no desire to harm self or others. Onset of symptoms was December 05, 2024. 08:37 Method Of Arrival: Ambulatory ss 08:37 Acuity: CHACORTA 3 ss Historical: - Allergies: 08:38 No Known Allergies; ss - PMHx: 08:38 acid reflux; GALLSTONES; Migraines (Cholecystectomy); ss - PSHx: 08:38 Cholecystectomy; ss - Immunization history:: Adult Immunizations unknown. - Infectious Disease History:: Denies. - Social history:: Smoking status: Patient reports the use of cigarette tobacco products, denies chronic smoking, but will smoke occasionally. Screenin:45 [facility] ED Fall Risk Assessment (Adult) History of falling in the last 3 months, af3 including since admission No falls in past 3 months (0 pts) Confusion or Disorientation No (0 pts) Intoxicated or Sedated No (0 pts) Impaired Gait No (0 pts) Mobility Assist Device Used No (0 pt) Altered Elimination No (0 pt) Score/Fall Risk Level 0 - 2 = Low Risk Oriented to surroundings, Maintained a safe environment, Educated pt \T\ family on fall prevention, incl call for assistance when getting out of bed. Abuse screen: Denies threats or abuse. Denies injuries from another. Nutritional screening: No deficits noted. Tuberculosis screening: No symptoms or risk factors identified. Assessment: 08:45 General: Appears in no apparent distress. uncomfortable, well groomed, well developed, af3 Behavior is calm, cooperative, appropriate for age, drowsy. Pain: Denies pain. Neuro: Level of Consciousness is awake, alert, obeys commands, Oriented to person, place, time, situation, Appropriate for age. Cardiovascular: Patient's skin is warm and dry. Respiratory: Airway is patent Respiratory effort is even, unlabored, Respiratory pattern is regular, symmetrical. GI: Parent/caregiver reports the patient having vomiting. 10:05 General: Appears in no apparent distress. well groomed, well developed, Behavior is me1 calm, cooperative, appropriate for age. General: cough, congestion, SOB that began 1 week ago. EDGE that began yesterday. Neuro: Level of Consciousness is awake, alert, obeys commands, Oriented to person, place, time, situation, Appropriate for age. Cardiovascular: Patient's skin is warm and dry. Respiratory: Airway is patent Respiratory effort is even, unlabored, Respiratory pattern is regular, symmetrical. Respiratory: Reports cough that is. Respiratory: Reports shortness of breath on exertion since about a week ago. GI: No signs and/or symptoms were reported involving the gastrointestinal system. GI: Abdomen is non-distended. : No signs and/or symptoms were reported regarding the genitourinary system. EENT: No signs and/or symptoms were reported regarding the EENT system. Derm: Skin is intact, is healthy with good turgor, Skin is normal. Musculoskeletal: Circulation, motion, and sensation intact. Range of motion: intact in all extremities. Vital Signs: 08:37 BP 122 / 71; Pulse 57; Resp 16; Temp 97.8(TE); Pulse Ox 97% on R/A; Weight 106.14 kg; Height 5 ft. 10 in. ; Pain 10/10; 10:19 BP 96 / 61; Pulse 62; Resp 16; Pulse Ox 95% on R/A; af3 11:00 BP 107 / 50; Pulse 59; Resp 16; Pulse Ox 96% ; me1 12:00 BP 109 / 61; Pulse 55; Resp 16; Temp 98.2; Pulse Ox 96% ; me1 08:37 Body Mass Index 33.58 (106.14 kg, 177.8 cm) 08:37 Pain Scale: Adult ss ED Course: 08:24 Patient arrived in ED. im 08:33 Ingrid Garnica, CONCHIS [facility] kb 08:33 Lyndon May MD is Attending Physician. kb 08:38 Triage completed. ss 08:38 Arm band placed on left wrist. ss 08:45 Patient has correct armband on for positive identification. Bed in low position. Call af3 light in reach. Provided Education on: meds, call light use . 08:45 No provider procedures requiring assistance completed. af3 08:52 Bernie Bedolla, NIKITA is Primary Nurse. af3 09:06 Group A Streptococcus Rapid Sent. bc6 09:06 COVID-19 Ag + Flu A+B Ag Sent. bc6 09:06 CMP Sent. bc6 09:06 CBC with Diff Sent. bc6 09:06 Initial lab(s) drawn, by me, sent to lab. Inserted saline lock: 20 gauge in left hand, bc6 using aseptic technique. Blood collected. Flushed with 10 mL NS. 09:10 CT Head Brain wo Cont In Process Unspecified. EDMS 09:14 recollect light green. bd 09:34 Chest Single View XRAY In Process Unspecified. EDMS 12:19 IV discontinued, intact, bleeding controlled, No redness/swelling at site. Pressure me1 dressing applied. Administered Medications: 09:23 Drug: metoCLOPramide IVP 10 mg IVP once; over 1 to 2 minutes Route: IVP; Site: left af3 hand; 10:16 Follow up: Response: No adverse reaction af3 09:23 Drug: diphenhydrAMINE IVP 12.5 mg IVP once Route: IVP; Site: left hand; af3 10:16 Follow up: Response: No adverse reaction af3 09:23 Drug: Decadron - Dexamethasone IVP 10 mg IVP once Route: IVP; Site: left hand; af3 10:16 Follow up: Response: No adverse reaction af3 09:24 Drug: NS 0.9% IV 1000 ml IV at 1000 ml once; to be given as a bolus over 60 minutes af3 Route: IV; Rate: 1000 ml; Site: left hand; 10:16 Follow up: Response: No adverse reaction; IV Status: Completed infusion; IV Intake: af3 1000ml 09:42 Drug: Ketorolac IVP 15 mg IVP once Route: IVP; Site: left hand; af3 10:17 Follow up: Response: No adverse reaction af3 09:42 Drug: Ondansetron IVP 4 mg IVP once; over 2 minutes Route: IVP; Site: left hand; af3 10:17 Follow up: Response: No adverse reaction af3 Medication: 08:45 VIS not applicable for this client. af3 Intake: 10:16 IV: 1000ml; Total: 1000ml. af3 Outcome: 12:09 Discharge ordered by MD. louie 12:19 Discharged to home ambulatory, with significant other, me1 12:19 Condition: stable 12:19 Discharge instructions given to patient, Instructed on discharge instructions, follow up and referral plans. Demonstrated understanding of instructions, follow-up care, 12:19 Patient left the ED. me1 Signatures: Dispatcher [employer] EDIngrid Thakur, TEACHER RESOURCE-C TEACHER RESOURCE-Ckb Gema Yoo Shelby, RN RN Racheal Rodriguez 6 Soraya Whitfield Michelle, RN RN me1 Bernie Bedolla RN RN af3 Corrections: (The following items were deleted from the chart) 10:50 08:37 Chief complaint: Patient states: cough, congestion, SOB that began 1 week ago. EDGE me1 that began yesterday ss
[2024-12-12 12:29] VITALS: O2SAT 96
[2024-12-12 12:31] VITALS: BP 109/61; TEMP 98.2
== END 2024-12-12 12:19 | disposition home or self-care (01) ==
LOC: ER 08:22
DX: B34.9 Viral infection, unspecified (principal); Z11.52 Encounter for screening for COVID-19; F17.210 Nicotine dependence, cigarettes, uncomplicated
CPT/HCPCS: 96361; 87070; 85025; 36415; 80053; 70450; 71045; 96375; 96374; 99284; 87428; J2765; J1200; J1100; J2405; J7030; Q0163